=== PATIENT | male | born 1960 | race Caucasian/White ===

== ENCOUNTER 2024-09-03 15:26 | Inpatient (IN) | payer MEDICARE, OTHER, SELFPAY ==
[2024-09-03] VITALS (12 sets, daily range): BP systolic 100–112; BP diastolic 49–71; PULSE 2–80; BMI 33.5; BMI 32.1
--- NOTE | 2024-09-03 12:28 | ED.GENMED ---
History of Present Illness
General
Chief Complaint: Breathing Problem
Source: patient and physician (Dr. Salazar)
Time Seen by Provider: 09/03/24 12:16
History of Present Illness
History of Present Illness:
This is a 64-year-old male who presents with shortness of breath. He was sent by his college service officer. They report weight gain. Patient reports abdominal distention. He states he always feels a little short of breath but it is much worse right now.
No fevers. No chest pain. Does have a history of COPD. Also has a history of valvular disease.
Past History
Past History
ED Past Medical History: COPD, HTN, Hypercholesterolemia, Valvular disease and Other (Irritable bowel syndrome)
ED Past Surgical History: Cardiac (Mitral valve replacement)
Social History
Tobacco: Non-smoker
Living: with family
Phy Exam
Physical Exam
Physical Exam:
CONSTITUTIONAL Patient alert and oriented to person, place and time.ill-appearing. Vital signs reviewed. Moderate respiratory distress
HEAD atraumatic, normocephalic.
EYES eyelids normal to inspection, Pupils equally round and reactive to light, Extraocular muscles intact, Conjunctiva normal, Sclera normal.
NECK normal range of motion, Trachea midline, no jugular venous distention.
RESPIRATORY CHEST moderate respiratory distress noted, Chest expansion equal, diminished at bilateral bases
CARDIOVASCULAR irregular, Heart sounds normal.
BACK normal inspection, no obvious deformities
UPPER EXTREMITY range of motion normal, Motor strength normal, distal cyanosis, no edema.
LOWER EXTREMITY range of motion normal, Motor strength normal, distal cyanosis, bilateral edema.
NEURO Speech normal, No focal motor deficits, [place] coma scale 15, Memory normal, Cranial Nerves intact to screening exam.
SKIN skin warm, dry, and normal in color.
PSYCHIATRIC patient oriented to person place and time, Normal affect.
Scores
Heart Failure Risk
Heart Failure Risk Score: Yes
History of Stroke or TIA: No
History of intubation for respiratory distress: No
Heart rate on ED arrival >/= 110: No
SaO2 <90% on arrival on room air: No
HR >/=110 during 3min walk test (or too ill to perform test): Yes
ECG has acute ischemic changes: No
Urea >/=12mmol/L (BUN 33.6mg/dL): No
Serum CO2>/=35mmol/L: No
Troponin I or T elevated to [place] Level (0.4mg/dL): No
NT-proBNP >/=5,000ng/L (5,000pg/ml): No
HF Risk Score: 2
Admission Status: MEDIUM RISK 9.2% Consider observation or discharge to home with homecare & f/u visit to PCP/[employer], or SNF for treatment
Course
Orders/Labs/Results
Orders:
Orders
09/03/24 11:41
Electrocardiogram (*1) Urgent
Reason for Study: Other
Other Reason for Exam: Respiratory Distress
EKG- Treatment ONCE
09/03/24 12:25
CR Chest Portable - 1 View Stat
Comment:
Reason For Exam: sob
Reason Study Needs to be Portable: Patient Unstable
09/03/24 12:26
Bipap [RESP] Urgent
Patient to use own unit?: No
Inspiratory Pressure (cm H2O): 12
Expiratory Pressure (cm H2O): 5
09/03/24 12:35
Furosemide [Lasix] 40 mg IV NOW STA
09/03/24 12:37
Complete Blood Count/With Diff Urgent
Comprehensive Metabolic Panel Urgent
NT-proBNP Urgent
PT/INR [Prothrombin Time] Urgent
Troponin I Urgent
09/03/24 12:54
CT Chest W/o Iv Contrast Urgent
Comment:
Reason For Exam: hypoxia, abn CXR
09/03/24 15:02
Admit/Transfer Patient As Directed
Co-Sign Provider:
Level of Care: Inpatient admission
Assign to:: IMU- Intermediate Care
Physician / Group: Jennie Mcnair
Diagnosis: CHF Exarcebation
Reason for Hospitalization: as above
Expected length of stay greater than two midnights?: Yes
ELOS- Estimated Length of Stay in days: 3
I certify the patient meets the requirements for IP care: Yes
PRN Pain Medication Management As Directed
May give lesser potent ordered pain med per pt: Yes
preference::
Protocol:: Medication orders for pain may be administered in a
manner that supports deferring to patient preference
when the pt is:
- Requesting an ordered lesser potent pain medication.
Least to most potent pain medications are defined
as: acetaminophen < NSAID < tramadol < opioids
(morphine, oxycodone, hydromorphone).
- Requesting a lesser dose of the same medication IF
ORDERED.
- Requesting a less intrusive route of administration
if both routes are prescribed by the provider (PO <
IV).
09/03/24 15:04
Echo 2D MMode Color/Doppler Routine
Reason for Study: CHF, mech MVR
09/03/24 15:06
Code Status As Directed
Resuscitation Status: Full Code
09/03/24 15:15
IRAD CONSULT Routine
Consulting Provider: Adair Meek
Was physician already notified: Yes
Reason for Consult/Procedure: Right Thoracocentesis
Acknowledgement that appropriate orders are entered: Yes
Body Fluid Amylase Routine
Fluid Source: Pleural
Date Specimen was Collected: 09/06/24
Time Specimen was Collected: 14:00
Comment: right lateral chest tube placed in IRAD
Body Fluid Cell Count Routine
What is the Body Fluid: pleural fluid
Date Specimen was Collected: 09/06/24
Time Specimen was Collected: 14:00
Comment: right lateral chest tube placed in IRAD
Body Fluid Glucose Routine
Fluid Source: Pleural
Date Specimen was Collected: 09/06/24
Time Specimen was Collected: 14:00
Comment: right lateral chest tube placed in IRAD
Body Fluid LDH Routine
Fluid Source: Pleural
Date Specimen was Collected: 09/06/24
Time Specimen was Collected: 14:00
Comment: right lateral chest tube placed in IRAD
Body Fluid Protein Routine
Fluid Source: Pleural
Date Specimen was Collected: 09/06/24
Time Specimen was Collected: 14:00
Comment: right lateral chest tube placed in IRAD
Body Fluid Triglycerides Routine
Fluid Source: Pleural
Date Specimen was Collected: 09/09/24
Time Specimen was Collected: 01:30
Body Fluid pH Routine
Fluid Source: Pleural
Date Specimen was Collected: 09/06/24
Time Specimen was Collected: 14:00
Comment: right lateral chest tube placed in IRAD
Fluid Culture with Gram Stain Routine
LEE Source: Pleural Fluid
Specimen Description:
Date Specimen was Collected: 09/06/24
Time Specimen was Collected: 14:00
Comment: right lateral chest tube placed in IRAD
09/03/24 17:31
Acetaminophen [Tylenol] 1,000 mg PO Q6HPRN PRN
Albuterol [ProAIR HFA INHALER] 2 puff INH R Q4HPRN PRN
Bisacodyl [Dulcolax] 10 mg RECTAL [id number] PRN
Docusate W/Senna [Senokot-S] 1 tablet PO BIDPRN PRN
Furosemide [Lasix] 80 mg IV BID AT 0800,1600
Polyethylene Glycol Powder [Miralax] 17 grams PO DAILYPRN PRN
09/03/24 17:31
CARDIOLOGY CONSULT Routine
Consulting Provider: Jolly James
Was physician already notified: Yes
Reason for consult: CHF
Activity As Directed
Activity Level: Ambulate
Intake/ Output As Directed
Frequency: Per unit guidelines
Vital Signs As Directed
Frequency: Per unit guidelines
Weight As Directed
Frequency: Daily
Rx Incentive Spirometry [RESP] Routine
Frequency: q1h while awake
Ot Eval And Treat Routine
Pt Eval And Treat Routine
Activity Level: Ambulate
DX Deep Vein Thrombosis Video Routine
09/03/24 20:00
Albuterol Nebs [Ventolin Nebules] 2.5 mg INH R BID
Budesonide [Pulmicort] 0.5 mg INH R BID
Metoprolol Xl [Toprol Xl] 150 mg PO BID
09/03/24 22:00
Rosuvastatin Calcium [Crestor] 5 mg PO HS
Valacyclovir HCl [Valtrex] 1,000 mg PO HS
Verapamil Extended Release [Calan Extended Release] 240 mg PO HS
09/04/24 04:23
Complete Blood Count/With Diff IN AM
Comprehensive Metabolic Panel IN AM
09/04/24 08:00
Aspirin Low Dose EC [Aspir Low (Enteric Coated)] 81 mg PO DAILY
Pantoprazole [Protonix] 40 mg PO DAILY
Sertraline HCl [Zoloft] 100 mg PO DAILY
Verapamil Extended Release [Calan Extended Release] 120 mg PO DAILY
Abnormal Lab Results
09/03/24
12:37
RBC 4.34 L 10^6/uL
(4.70-6.10)
Hgb 12.6 L g/dL
(13.0-18.0)
MCHC 31.8 L g/dL
(33.0-37.0)
RDW 15.9 H %
(11.5-14.5)
Absolute Neuts (auto) 8.4 H 10^3/uL
(1.4-6.5)
Absolute Lymphs (auto) 0.7 L 10^3/uL
(1.2-3.4)
Absolute Monos (auto) 1.0 H 10^3/uL
(0.1-0.6)
Neutrophils % 80.9 H %
(42.2-75.2)
Lymphocytes % 6.5 L %
(20.5-51.1)
Monocytes % 10.0 H %
(1.7-9.3)
PT 44.3 H Sec
(11.4-14.6)
Chloride 87 L mmol/L
(98-107)
Carbon Dioxide 40 H mmol/L
(22-30)
Glucose 117 H mg/dl
(70-99)
Total Bilirubin 2.6 H mg/dl
(0.2-1.3)
Alkaline Phosphatase 243 H U/L
(38-126)
09/03/24 12:37
09/03/24 12:37
Vital Signs
Initial and Last Documented VS:
Initial Vital Signs
Temp Pulse Resp BP Pulse Ox
98 F 61 16 105/57 94
09/03/24 11:37 09/03/24 11:37 09/03/24 11:37 09/03/24 11:37 09/03/24 11:37
Last Documented Vital Signs
Temp Pulse Resp BP Pulse Ox
98.0 F 99 9 100/72 91
09/08/24 23:40 09/09/24 00:00 09/09/24 00:00 09/09/24 00:00 09/09/24 00:00
MDM/Problems Addressed
MDM/Problems Addressed:
Hypoxia, volume overload, whiteout of the right lower lobe, hypoxia
*Radiology
Radiology exam reviewed: preliminary read by ED provider (Right lower lobe whiteout) and radiology read reviewed
*Pulse Oximetry
Patient hypoxic: yes
*EKG
Interpreted by ED Provider?: Yes
Interpretation: abnormal
Rate: normal
Rhythm: other (? AF)
[place]: left axis deviation
QRS Pattern: right bundle branch block
*Critical Care Note
Total Time (30-74mins, 75-104mins- exclusive of procedures): 40 minutes
Data Reviewed
Source: patient and other (Dr. Salazar)
Prescriptions/Medications Considered But Not Given:
Considered antibiotics but afebrile, normal white count
Patient Management
Discussion with other providers: Hospitalist and Wholesale Parts Salesperson (Case discussed with cardiology)
Escalation/DeEscalation of care consider admission/obs:
64-year-old male with multiple medical problems as a history who presents with progressive dyspnea. He is profoundly short of breath sitting in bed. Clearly with orthopnea. Now BiPAP is sitting up in the chair does appear better. IV diuretics
given. Check CT to further evaluate the whiteout of the right lung that may be pleural fluid versus pneumonia. He has not had any trauma but is coagulopathy is noted.
ED Attending Note
-
Portions of this chart may have been created with voice recognition software.� Occasional wrong word or��sound alike� substitutions may have occurred due to the inherent limitations of voice recognition software.
Discharge Plan
Departure
Patient Disposition: Admit
Date of Disposition: 09/03/24
Time of Disposition: 13:27
Admit to: IMU
Presentation/result/management discussed w/ accepting MD/DO: Hospitalist
Discharge Problem:
Congestive heart failure, Hypoxia, Supratherapeutic INR
Interventions
Interventions:
*Risk Screen - Suicide Last Done: 09/03/24 18:35
*General Assessment Last Done: 09/03/24 11:37
*Neglect/Abuse Screening Last Done: 09/03/24 11:37
*ED COVID-19 Vaccine History Last Done: 09/03/24 12:38
*Nursing Disposition Last Done: 09/03/24 17:17
ED- Cardiac Assessment Last Done: 09/03/24 15:41
ED- Pulmonary Assessment Last Done: 09/03/24 15:41
Discharge Date and Time
Discharge Date/Time: 09/03/24 17:18
[2024-09-03] MEDS: LASIX 40 MG IV (12:47)
[2024-09-03 12:52] LABS: % Basophils 0.4 % (0-2); % Immature Granulocytes 0.2 % (0-0.5); % Lymphocytes 6.5 % (20.5-51.1); % Neutrophils 80.9 % (42.2-75.2); Absolute Eosinophils 0.2 10^3/uL (0-0.7); Absolute Lymphocytes 0.7 10^3/uL (1.2-3.4); Absolute Neutrophils 8.4 10^3/uL (1.4-6.5); Hematocrit 39.6 % (39.0-52.0); Hemoglobin 12.6 g/dL (13.0-18.0); Mean Corp Hgb Conc. 31.8 g/dL (33.0-37.0); Mean Corpuscular Volume 91.2 fL (80.0-94.0); Mean Platelet Volume 8.9 fL (7.4-10.4); Nucleated Red Blood Cells % 0 % (-); Platelet Count 332 10^3/uL (130-400); Red Blood Cell Count 4.34 10^6/uL (4.70-6.10); Red Cell Dist. Width 15.9 % (11.5-14.5); White Blood Cell Count 10.3 10^3/uL (4.8-10.8)
[2024-09-03 13:08] LABS: ALT (SGPT) 24 U/L (0-50); AST (SGOT) 37 U/L (17-59); Alkaline Phosphatase 243 U/L (38-126); Blood Urea Nitrogen 17 mg/dl (9-20); Chloride 87 mmol/L (98-107); Estimated Creatinine Clearance 111 ml/min; Glucose 117 mg/dl (70-99); INR 4.69; PT 44.3 Sec (11.4-14.6); Potassium 3.8 mmol/L (3.5-5.1); Sodium 138 mmol/L (135-145); Total Bilirubin 2.6 mg/dl (0.2-1.3); Total Protein 7.3 g/dl (6.3-8.2); eGFR > 60.00
[2024-09-03 13:19] LABS: Troponin I 0.014 ng/ml
[2024-09-03 13:20] LABS: Carbon Dioxide 40 mmol/L (22-30)
[2024-09-03 13:53] LABS: NT-proBNP 1170 pg/ml
--- NOTE | 2024-09-03 14:30 | W.PN.CARDCBS ---
Addendum entered and electronically signed by Jolly James DO 09/03/24 19:47:
I saw and examined the patient.
The Soda Drier Feeder's note was reviewed and I agree with the note.
Comment: Patient seen and examined in the ED after being sent from our office for acute hypoxic shortness of breath and symptoms of heart failure. Office notes reviewed.Patient is currently sitting out of bed to chair on BiPAP with slightly
improved shortness of breath. No chest pain or pressure.
Morbidly obese sitting out of bed to chair with acute respiratory distress on BiPAP
Irregularly irregular. Positive S1-S2. Distant heart sounds. Positive click of mechanical mitral valve
Bronchovesicular breath sounds severely decreased bilaterally particularly on the right side with left-sided crackles
Morbidly obese. Positive bowel sounds. Nontender
+++ edema
Plan:
Patient presented to the office and referred to ER for evaluation and admission for acute, severe hypoxic respiratory distress requiring BiPAP found to have right lung whiteout on chest x-ray and evidence of heart failure.
-Will repeat 2D echocardiogram
-CT of the chest pending
-Eventual IR drainage of right lung; awaiting to see if they will do it with current INR. Given history of mechanical mitral valve would not reverse with vitamin K
-Continue IV diuresis
-Pending response may need Lasix drip
-Mechanical mitral valve on Coumadin with current INR 4.69. Would hold Coumadin tonight and follow INR.
-INR 4.69. On chronic Coumadin given history of mechanical mitral valve, followed by [facility] Coumadin clinic. Would hold Coumadin tonight, follow INR
-History of PAF currently in atrial fibrillation.
Will follow with you
Original Note:
Today's Communication / Plan
-
IV diuresis
IRAD eval for R thora
wean off BIPAP
hold coumadin
echo
Impression / Plan
-
Please refer to office note dated 09/03/24
Primary Health Officer: Dr. Salazar
Assessment:
-Presentation with SOB, LE edema
-Acute hypoxic respiratory failure, requiring BIPAP in ER
-Acute on chronic HFrEF
-R pleural effusion
-PAF
-History of AVNRT
-Severe MR
-s/p MV repair via mini thoracotomy 10/2013 at [facility]
-Previously dehisced mitral valve ring status post [place] mechanical mitral valve replacement at [facility] in 2013 with redo sternotomy
-Paravalvular plug placed at [facility] 07/2016 due to symptomatic worsening paravalvular leak
-chronic coumadin therapy, managed by [facility]
-COPD, on 4L NC home O2
-HLD
-JENNIFER on CPAP
-PVCs
-anxiety
ECHO 04/15/23: EF 45 to 50%, mild concentric LVH, stage II diastolic dysfunction, status post mechanical mitral valve prosthesis with peak/mean gradients 19/9 mmHg, no MR, mild to moderate AR, mild TR, PAP 49 mmHg, dilated aorta measuring 4.1 cm
Plan:
-Patient was seen in the office today for evaluation of weight gain and shortness of breath. Reports being up about 15 to 20 pounds and states his clothes began to not fix. This unfortunately was not improved with taking increased dosing of Lasix
120mg BID (chronically on 80mg BID). He was referred to emergency room for admission and IV diuresis.
-Chest x-ray in emergency room with evidence of whiteout of right lung. Chest CT pending. Of note he does have chronic elevation of right hemidiaphragm
-proBNP 1170. Currently on BiPAP, wean as able. Of note he chronically uses CPAP at night and chronically on 4L during day
-If felt to have significant effusion on right, would consider iRad evaluation for thoracentesis
-INR 4.69. On chronic Coumadin given history of mechanical mitral valve, followed by [facility]. Would hold Coumadin tonight, follow INR
-Would place on IV Lasix 80 mg twice daily and assess response. May need to escalate dosing or consider addition of Zaroxolyn if does not respond
-Last echo with EF 45-50%. On Toprol and verapamil as an outpatient. Will repeat echocardiogram. May need to consider addition of ARIEL/ARB/ARNI/Aldactone/SGLT2. Creatinine stable\\
-EKG afib with bifascicular block
-d/w ER physician, hospitalist
Progress Note - Health Officer
Subjective
Date of Service: September 03, 2024
reports breathing improved on bipap. no CP
Objective
Labs:
09/03/24 12:37
09/03/24 12:37
Labs
Hgb 12.6 g/dL (13.0-18.0) L 09/03/24 12:37
Hct 39.6 % (39.0-52.0) 09/03/24 12:37
Plt Count 332 10^3/uL (130-400) 09/03/24 12:37
PT 44.3 Sec (11.4-14.6) H 09/03/24 12:37
INR 4.69 09/03/24 12:37
Sodium 138 mmol/L (135-145) 09/03/24 12:37
Potassium 3.8 mmol/L (3.5-5.1) 09/03/24 12:37
BUN 17 mg/dl (9-20) 09/03/24 12:37
Creatinine 0.8 mg/dL (0.7-1.3) 09/03/24 12:37
Glucose 117 mg/dl (70-99) H 09/03/24 12:37
Troponins
09/03/24
12:37
Troponin I 0.014
Vital Signs and I&O:
Vital Signs
Temp Pulse Resp BP Pulse Ox
98 F 66 18 112/59 99
09/03/24 11:37 09/03/24 14:00 09/03/24 14:00 09/03/24 12:47 09/03/24 14:00
Vital Signs
Temp Pulse Resp BP Pulse Ox
98 F 66 18 112/59 99
09/03/24 11:37 09/03/24 14:00 09/03/24 14:00 09/03/24 12:47 09/03/24 14:00
Physical Exam
Physical Exam
GEN: No distress, awake, alert, oriented x3. on BIPAP
HEENT: supple, anicteric, mmm, eomi
LUNGS: Crackles B/L bases, no wheezes
CV: Irreg, S1/S2, mechanical valve click
ABD: firm, BS+, NT/ND
EXT: No cyanosis, clubbing, 2+ edema of B/L LE
NEURO: Gross non-focal
SKIN: Warm, pink, dry. No rash
--- NOTE | 2024-09-03 15:18 | HPS.HSE ---
Addendum entered and electronically signed by Jennie Mcnair MD 09/03/24 18:32:
I personally performed a history and physical exam of the patient and discussed management with the resident. I reviewed the resident's note and agree with the documented findings and plan of care HPI/CC.
GENERAL: well developed, well nourished, male in resp distress
HEENT: NC/AT bipap in place
HEART: regular rate and rhythm with ectopy, +S1, +S2
LUNGS : decreased breath sounds with E to A changes RLL
ABDOM: soft, nontender, distended, + bowel sounds
EXT: no cyanosis, clubbing--3+ LE edema bilaterally
NEUROLOGIC: grossly intact
acute on chronic (wears 4-5 L O2 at baseline) hypoxemic respiratory failure--multiple etiologies possible: acute on chronic systolic CHF exacerbation (pro BNP 1170 with increased weight gain), acute COPD exacerbation both possibly affected by
chronically elevated right hemidiaphragm--possible pleural effusion, possible ascites pushing on diaphragm--ADMIT to IMU--on BiPAP, wean to OP O2 level--consult pulm--consult cards--repeat ECHO, cont IV diuresis (80mg IV BID)--consult IR for
possible thoracentesis (must hold as INR 4)--I/Os, daily weights--doubt PE as INR supratherapeutic, coubt pna as gives no symptoms c/w that
chronic hypoxemic respiratory failure due to oxygen dependent COPD with compensated metabolic alkalosis (HCO3 is 40)--consult pulm--cont Amrita simms--no wheezing--hold on systemic steroids--if needs diuresis, consider diamox if alkalosis worsens
bilateral LE edema with increased abdominal girth and weight gain--doubt clot with elevated INR but will check BL US LE to r/o DVT and will check limited US looking for ascites
Paroxysmal atrial fibrillation-- on chronic Coumadin therapy--INR supratherapeutic--hold coumadin and follow--cont metoprolol and verapamil as able with holding parameters
Severe MR--s/p MV repair via mini thoracotomy 10/2013 at [facility] with mechanical valve--hold coumadin--cont asa, statin, metoprolol
Anxiety--Continue sertraline
Obstructive sleep apnea on CPAP
DVT prophylaxis; VTE contraindication (Holding coumadin)
CODE STATUS-- full code
Original Note:
Family Physician
-
Family Physician: Sunday Remy
Chief Complaint
-
Shortness of breath
History of Present Illness
This is a 64-year-old male with history of HFmrEF, paroxysmal atrial fibrillation on chronic anticoagulation, COPD, baseline home oxygen 4 L, presents to ED from his [employer] mut[employer] ticket cashier office with worsening shortness of breath at rest and with
exertion. He presented to his pari mutuel ticket cashier office today for evaluation of weight gain. Patient notes he has gained approximately 15 to 20 pounds. In addition he admits abdominal bloating and increased lower extremity edema despite increasing his
Lasix dosage to 120 mg twice daily(chronically on 80mg BID) as instructed by his pari mut[employer] ticket cashier. He denies chest pain, palpitations, dizziness, lightheadedness, syncope. He has no fever, no chills. On presentation to the the ER, his blood pressure
105/57, afebrile, O2 sat 96% requiring 8 L on BiPAP. Troponin 0.014, proBNP 1170, warfarin 4.69.
Medical History
Past Medical History
Past Medical History: Reports Other (SVT, severe mitral regurgitation, mitral valve disorder, essential hypertension, PVCs, hyperlipidemia, mitral valve prolapse, paroxysmal atrial fibrillation on chronic anticoagulation, GERD, COPD, home oxygen 4 L
NC)
Past Surgical History: Reports Other (Mitral valve replacement 11/02/2014)
Social History
Tobacco: Non-smoker
Alcohol: None
Drug: None
Living: Alone
Family History
Family History: Cancer (Breast cancer, cervical cancer in mother), Hypertension (Father) and Other
Allergies / Home Medications
Allergies reflects when Allergies were last updated in [facility].
Home Medications with original date entered in [facility]
Allergy/Medication List:
Allergies
Allergy/AdvReac Type Severity Reaction Status Date / Time
No Known Allergies Allergy Verified 09/03/24 11:36
Home Medications
aspirin 81 mg tablet,delayed release 81 mg PO DAILY 10/10/14
metoprolol succinate 100 mg tablet,extended release 24 hr 150 mg PO BID 11/25/17
sertraline 50 mg tablet 100 mg PO DAILY 06/05/21
verapamil 120 mg tablet,extended release 120 mg PO DAILY 06/05/21
verapamil 120 mg tablet,extended release 240 mg PO HS 06/05/21
acetaminophen 500 mg tablet (Tylenol Extra Strength) 1,000 mg PO Q6HPRN PRN mild pain 09/03/24
albuterol sulfate 90 mcg/actuation aerosol inhaler 2 puff inhalation R Q4HPRN PRN sob 09/03/24
arformoterol 15 mcg/2 mL solution for nebulization 2 ml inhalation R BID 09/03/24
budesonide 0.5 mg/2 mL suspension for nebulization 0.5 mg inhalation R BID 09/03/24
furosemide 80 mg tablet 80 mg PO BID 09/03/24
omeprazole 20 mg capsule,delayed release 20 mg PO DAILY 09/03/24
rosuvastatin 5 mg tablet 5 mg PO HS 09/03/24
valacyclovir 1 gram tablet 1,000 mg PO HS 09/03/24
Review of Systems
-
History Source: Patient
A 12 point ROS was completed and negative except as noted: Yes
Constitutional: Reports Fatigue
Respiratory: Reports Trouble Breathing
Physical Exam
Vital Signs
Vital Signs
Temp Pulse Resp BP Pulse Ox
98 F 66 18 112/59 99
09/03/24 11:37 09/03/24 14:00 09/03/24 14:00 09/03/24 12:47 09/03/24 14:00
Physical Exam
General: Respiratory Distress (On BiPAP)
Respiratory: Crackles (moderate b/l)
Cardiac: S1/S2 and Irregular Rhythm
GI: Soft, Non Tender and Distended (Mild distention)
Musculoskeletal: Other (2+ edema bilateral lower extremity)
Neuro: Awake, Alert, Oriented and AO x 3
Psych: Intact Judgment/Insight
Laboratory Results
-
09/03/24 12:37
09/03/24 12:37
Laboratory Results
PT 44.3 Sec (11.4-14.6) H 09/03/24 12:37
INR 4.69 09/03/24 12:37
Total Bilirubin 2.6 mg/dl (0.2-1.3) H 09/03/24 12:37
AST 37 U/L (17-59) 09/03/24 12:37
ALT 24 U/L (0-50) 09/03/24 12:37
Alkaline Phosphatase 243 U/L (38-126) H 09/03/24 12:37
Troponin I 0.014 ng/ml 09/03/24 12:37
Impression/Plan
-
IMPRESSION/PLAN:
# Acute on chronic HFmrEF
#Acute on chronic hypoxemic respiratory insufficiency secondary to above
-Chest CT on presentation right hemidiaphragm is elevated. Small to moderate right pleural effusion.Mild upper abdominal ascites.
-IR consulted for thoracocentesis.
-Cardiology input appreciated
-proBNP 1170
-Currently on BiPaP. Wean as tolerated.
-4L Home O2 baseline
-Diuresis with 80mg Lasix.
-I's and O's, daily weights
-Echocardiogram 04/15/2023 LVEF 45 to 50%, stage II diastolic dysfunction
-Update echocardiogram
# Paroxysmal atrial fibrillation on chronic Coumadin therapy
-Continue rate control with metoprolol
-Hold Coumadin, INR 4.69
-Monitor INR
#Severe MR
-s/p MV repair via mini thoracotomy 10/2013 at [facility]
-Continue aspirin, beta-sabino, statin
# COPD
Continue home meds
# Anxiety
-Continue sertraline
# Obstructive sleep apnea on CPAP
DVT prophylaxis; VTE contraindication (Holding coumadin)
CODE STATUS; full code
[2024-09-03] MEDS: LASIX 80 MG IV (18:30)
[2024-09-03] MEDS: PULMICORT 0.5 MG INH (19:21)
[2024-09-03] MEDS: VENTOLIN NEBULES 2.5 MG INH (19:21)
[2024-09-03] MEDS: TOPROL XL 150 MG PO (20:16)
[2024-09-03] MEDS: CRESTOR 5 MG PO (21:09)
[2024-09-03] MEDS: CALAN EXTENDED RELEASE 240 MG PO (21:09)
[2024-09-03] MEDS: VALTREX 1000 MG PO (21:09)
[2024-09-04] VITALS (19 sets, daily range): BP systolic 85–110; BP diastolic 38–67; PULSE 2–88; O2SAT 93–94; BMI 32.1
--- NOTE | 2024-09-04 03:51 | PTCARENOTE ---
assumed care of patient, pt is AAOx3- able to make needs known. pt visibly SOB after eating dinner- low pulse ox on 7L MFNC. notified RT who put patient back on bipap. pt reported feeling much better after bipap was placed. oxygen 95%. pt urinating
without issues in urinal for strict I & O's. pt aware he is NPO at midnight for abdominal US. no complaints of pain, care ongoing.
[2024-09-04 04:44] LABS: % Basophils 0.5 % (0-2); % Eosinophils 2.4 % (0-6); % Immature Granulocytes 0.2 % (0-0.5); % Lymphocytes 7.9 % (20.5-51.1); % Monocytes 11.6 % (1.7-9.3); % Neutrophils 77.4 % (42.2-75.2); Absolute Eosinophils 0.2 10^3/uL (0-0.7); Absolute Lymphocytes 0.7 10^3/uL (1.2-3.4); Absolute Neutrophils 6.5 10^3/uL (1.4-6.5); Hematocrit 35.8 % (39.0-52.0); Hemoglobin 11.5 g/dL (13.0-18.0); Mean Corp Hgb Conc. 32.1 g/dL (33.0-37.0); Mean Corpuscular Volume 90.4 fL (80.0-94.0); Mean Platelet Volume 8.8 fL (7.4-10.4); Nucleated Red Blood Cells % 0 % (-); Platelet Count 272 10^3/uL (130-400); Red Blood Cell Count 3.96 10^6/uL (4.70-6.10); Red Cell Dist. Width 15.7 % (11.5-14.5); White Blood Cell Count 8.4 10^3/uL (4.8-10.8)
[2024-09-04 04:52] LABS: INR 3.94; PT 38.6 Sec (11.4-14.6)
[2024-09-04 05:08] LABS: ALT (SGPT) 22 U/L (0-50); AST (SGOT) 34 U/L (17-59); Albumin 3.6 g/dl (3.5-5.0); Alkaline Phosphatase 210 U/L (38-126); Blood Urea Nitrogen 17 mg/dl (9-20); Calcium 8.5 mg/dl (8.4-10.2); Carbon Dioxide 40 mmol/L (22-30); Chloride 89 mmol/L (98-107); Estimated Creatinine Clearance 108 ml/min; Glucose 115 mg/dl (70-99); Potassium 3.7 mmol/L (3.5-5.1); Sodium 139 mmol/L (135-145); Total Bilirubin 2.3 mg/dl (0.2-1.3); Total Protein 6.7 g/dl (6.3-8.2); eGFR > 60.00
[2024-09-04] MEDS: PULMICORT 0.5 MG INH ×2 (07:59→19:38)
[2024-09-04] MEDS: VENTOLIN NEBULES 2.5 MG INH (07:59)
--- NOTE | 2024-09-04 08:27 | W.PN.CARDCBS ---
Today's Communication / Plan
-
Continue IV Lasix 80 mg IV twice daily. Add metolazone 2.5 mg daily.
Decrease Toprol to 50 mg p.o. twice daily and hold verapamil
Hold Coumadin with INR 3.9. Would not give vitamin K with mechanical mitral valve
Continue BiPAP and O2 support for COPD
Impression / Plan
-
Please refer to office note dated 09/03/24
Primary Shipping Support Clerk: Dr. Salazar
Assessment:
-Presentation with SOB, LE edema
-Acute hypoxic respiratory failure, requiring BIPAP in ER
-Acute on chronic HFrEF
-R pleural effusion
-PAF
-History of AVNRT
-Severe MR
-s/p MV repair via mini thoracotomy 10/2013 at [facility]
-Previously dehisced mitral valve ring status post [employer] mechanical mitral valve replacement at [facility] in 2013 with redo sternotomy
-Paravalvular plug placed at [facility] 07/2016 due to symptomatic worsening paravalvular leak
-chronic coumadin therapy, managed by [facility]
-COPD, on 4L NC home O2
-HLD
-JENNIFER on CPAP
-PVCs
-anxiety
ECHO 04/15/23: EF 45 to 50%, mild concentric LVH, stage II diastolic dysfunction, status post mechanical mitral valve prosthesis with peak/mean gradients 19/9 mmHg, no MR, mild to moderate AR, mild TR, PAP 49 mmHg, dilated aorta measuring 4.1 cm.
Echo 09/03/24: LVEF 40%, moderate LVH, dilated RV with reduced RV function, mechanical mitral valve with mean gradient of 5 and no MR. PA pressure 60-65. Ascending aorta 4.3 cm
Plan:
-He remains on BiPAP and remains hypoxic. Will continue aggressive IV diuresis today. Will add 2.5 metolazone with p.m. Lasix dose. Continue 80 IV twice daily. Creatinine is normal.
-He has an elevated right hemidiaphragm and a large right pleural effusion. If possible would like thoracentesis to help remove volume.
INR still elevated at 3.94. Will continue to hold Coumadin. Goal INR with mechanical valve 2.5-3.5. Would not give vitamin K at this point.
-Echo was reviewed and discussed with patient. Mechanical mitral valve is stable. PA pressures are elevated. Will continue diuresis
-Lexiscan nuclear stress test from 2021 with fixed inferior defect and EF of 45%.
-He remains in A-fib with slow ventricular rates. Will decrease Toprol to 50 mg p.o. twice daily and hold a.m. verapamil.
-CT scan reviewed with groundglass opacities in the lungs, elevated right hemidiaphragm, and mild ascites.
-
Progress Note - Shipping Support Clerk
Subjective
Date of Service: September 04, 2024
On BiPAP and still short of breath. Slightly improved. Denies dizziness.
Objective
Labs:
09/04/24 04:23
09/04/24 04:23
Labs
Hgb 11.5 g/dL (13.0-18.0) L 09/04/24 04:23
Hct 35.8 % (39.0-52.0) L 09/04/24 04:23
Plt Count 272 10^3/uL (130-400) 09/04/24 04:23
PT 38.6 Sec (11.4-14.6) H 09/04/24 04:23
INR 3.94 09/04/24 04:23
Sodium 139 mmol/L (135-145) 09/04/24 04:23
Potassium 3.7 mmol/L (3.5-5.1) 09/04/24 04:23
BUN 17 mg/dl (9-20) 09/04/24 04:23
Creatinine 0.8 mg/dL (0.7-1.3) 09/04/24 04:23
Glucose 115 mg/dl (70-99) H 09/04/24 04:23
Troponins
09/03/24
12:37
Troponin I 0.014
Vital Signs and I&O:
Vital Signs
Temp Pulse Resp BP Pulse Ox
97.5 F 53 16 92/57 93
09/04/24 03:35 09/04/24 06:00 09/04/24 06:00 09/04/24 06:00 09/04/24 04:24
Vital Signs
Temp Pulse Resp BP Pulse Ox
97.5 F 53 16 92/57 93
09/04/24 03:35 09/04/24 06:00 09/04/24 06:00 09/04/24 06:00 09/04/24 04:24
Intake & Output
09/02/24 09/03/24 09/04/24 09/05/24
06:59 06:59 06:59 06:59
Output Total 825 / 825
Balance -825 / -825
Physical Exam
Physical Exam
GEN: No distress, awake, Ox3
HEENT: supple, anicteric, mmm, Bipap
LUNGS: Bilateral rhonchi with decreased breath sounds at the right base
CV: Irreg, S1/S2, 1/6 syst LSB, + click, S3+
ABD: soft, BS+, + distended
EXT: + edema
NEURO: Gross non-focal
SKIN: No rash
--- NOTE | 2024-09-04 08:50 | W.PN.HOSP.TC ---
Today's Communication/Plan
-
diuresis
IR for thoracentesis
check US B/L Le edema and abdomen for ascites
follow INR-holding coumadin
wean BiPAP as tolerated
apprec cards
await pulm
Assessment / Plan
Assessment / Plan
pt is a 64 year old male
acute on chronic (wears 4-5 L O2 at baseline) hypoxemic respiratory failure--multiple etiologies possible: acute on chronic systolic CHF exacerbation, acute COPD exacerbation (less likely) both possibly affected by chronically elevated right
hemidiaphragm--possible pleural effusion, possible ascites pushing on diaphragm-- cont on BiPAP, wean to OP O2 level--await pulm--apprec cards--repeat ECHO with severely dilated right atrium and dilated right ventricle EF 40%, cont IV diuresis (80mg
IV BID)--await IR for possible thoracentesis--I/Os, daily weights--doubt PE as INR supratherapeutic, doubt pna as gives no symptoms c/w that
chronic hypoxemic respiratory failure (presumed hypercapnia too) due to oxygen dependent COPD with compensated metabolic alkalosis (HCO3 is 40)--await pulm--cont nebsAmrita--no wheezing--hold on systemic steroids--if needs diuresis, consider diamox
if alkalosis worsens--pt likely has minimal reserve with COPD and elevated right hemidiaphragm
bilateral LE edema with increased abdominal girth and weight gain--doubt clot with elevated INR but will check BL US LE to r/o DVT and will check limited US looking for ascites
Paroxysmal atrial fibrillation-- on chronic Coumadin therapy--INR supratherapeutic--hold coumadin and follow, do not reverse--cont metoprolol and verapamil as able with holding parameters
Severe MR--s/p MV repair via mini thoracotomy 10/2013 at [facility] with mechanical valve--hold coumadin--cont asa, statin, metoprolol
Anxiety--Continue sertraline
Obstructive sleep apnea on CPAP
DVT prophylaxis; VTE contraindication (Holding coumadin)
CODE STATUS-- full code
Anticipated Discharge: > 48 hours
Subjective/Interval History
-
Date of Service: September 04, 2024
pt still on BiPAP--oxygen drops when off
Objective Data
-
Labs:
Laboratory Results
09/04/24
04:23
WBC 8.4
Hgb 11.5 L
Hct 35.8 L
Plt Count 272
PT 38.6 H
INR 3.94
Sodium 139
Potassium 3.7
Chloride 89 L
Carbon Dioxide 40 H
BUN 17
Creatinine 0.8
Glucose 115 H
Calcium 8.5
Total Bilirubin 2.3 H
AST 34
ALT 22
Alkaline Phosphatase 210 H
Vital Signs:
max temp for 24 hours
09/03/24
12:45 09/03/24
23:12 09/04/24
05:48
Temp 98.0 F
Actual Weight 106 kg 101.5 kg
Vital Signs
Temp Pulse Resp BP Pulse Ox
97.5 F 53 16 92/57 93
09/04/24 03:35 09/04/24 06:00 09/04/24 06:00 09/04/24 06:00 09/04/24 04:24
I&O
09/03/24 09/04/24 09/05/24
06:59 06:59 06:59
Output Total 825 / 825
Balance -825 / -825
Review of Systems
-
All other systems: Reviewed and negative
Respiratory: Reports Trouble Breathing
Musculoskeletal: Reports Edema
Physical Exam
-
General: Well Developed, Well Nourished and No Apparent Distress
HEENT: Normocephalic, Atraumatic and Other (BiPAP in place)
Respiratory: Decreased Breath Sounds (right lung field lower 1/3)
Cardiac: Regular Rhythm and S1/S2; Negative Murmur
GI: Soft, Nontender, Normal Bowel Sounds and Distended
Musculoskeletal: Negative No Edema (bilateral LE edema)
Neuro: Awake
Psych: Calm
[2024-09-04] MEDS: PROTONIX 40 MG PO (09:41)
[2024-09-04] MEDS: ASPIR LOW (ENTERIC COATED) 81 MG PO (09:42)
[2024-09-04] MEDS: ZOLOFT 100 MG PO (09:43)
[2024-09-04] MEDS: LASIX 80 MG IV ×2 (09:43→17:03)
[2024-09-04] MEDS: TOPROL XL PO ×2 (09:47→19:39)
[2024-09-04 11:49] LABS: COVID-19 Antigen Negative (Negative)
--- NOTE | 2024-09-04 14:37 | CON.PUL ---
Consultation
Consultation Request
Date/Time Consultation Requested: 09/04/2024
Date/Time Consultation Performed: 09/04/2024
Requesting Provider: Dr. Mcnair
Performing Provider: Dr. Bentley Hodge
Reason for Consultation: Hypoxemic respiratory failure acute on chronic
Medical History
-
History of Present Illness:
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
worsening shortness of breath with exertion. Weight is up about 15 to 20 pounds from his baseline.
Reports lower extremity swelling despite increasing to high doses of Lasix. Denies any cough, wheezing, phlegm production. Denies any fevers or chills. Denies any lightheadedness chest pain or palpitation. Patient had increased work of breathing
that required 8 L of oxygen and also BiPAP.
proBNP was elevated. INR was elevated.
Past Medical History
Past Medical History: Other (See assessment and plan)
Social History
Tobacco: Non-smoker
Alcohol: None
Drug: None
Living: Alone
Family History
Family History: Reviewed & Not Pertinent
Allergies / Home Medications
Allergies
Allergy/AdvReac Type Severity Reaction Status Date / Time
No Known Allergies Allergy Verified 09/03/24 11:36
Home Medications
�Medication �Instructions �Recorded �Confirmed �Last Taken �Type
aspirin 81 mg tablet,delayed 81 mg PO DAILY Blood Clot 10/10/14 09/03/24 09/02/24 History
release Prevention/Tx
metoprolol succinate 100 mg 150 mg PO BID Blood Pressure 11/25/17 09/03/24 09/02/24 History
tablet,extended release 24 hr
sertraline 50 mg tablet 100 mg PO DAILY depression/anxiety 06/05/21 09/03/24 09/02/24 History
verapamil 120 mg tablet,extended 120 mg PO DAILY Blood Pressure 06/05/21 09/03/24 09/02/24 History
release
verapamil 120 mg tablet,extended 240 mg PO HS Blood Pressure 06/05/21 09/03/24 09/02/24 History
release
acetaminophen 500 mg tablet 1,000 mg PO Q6HPRN PRN mild pain 09/03/24 09/03/24 09/02/24 History
(Tylenol Extra Strength)
albuterol sulfate 90 mcg/actuation 2 puff inhalation R Q4HPRN PRN sob 09/03/24 09/03/24 Unknown History
aerosol inhaler
arformoterol 15 mcg/2 mL solution 2 ml inhalation R BID 09/03/24 09/03/24 09/02/24 History
for nebulization Lung/Breathing Issues
budesonide 0.5 mg/2 mL suspension 0.5 mg inhalation R BID 09/03/24 09/03/24 09/02/24 History
for nebulization Lung/Breathing Issues
furosemide 80 mg tablet 80 mg PO BID Fluid 09/03/24 09/03/24 09/02/24 History
Retention/Swelling 120 mg
omeprazole 20 mg capsule,delayed 20 mg PO DAILY Gastrointestinal 09/03/24 09/03/24 09/02/24 History
release Issue
rosuvastatin 5 mg tablet 5 mg PO HS High Cholesterol 09/03/24 09/03/24 09/02/24 History
valacyclovir 1 gram tablet 1,000 mg PO HS Infection 09/03/24 09/03/24 09/02/24 History
warfarin 1 mg tablet 3.5 mg PO QPM Blood Clot 09/03/24 09/03/24 Unknown History
Prevention/Tx
Review of Systems
-
History Source: Patient
All other systems: Negative unless noted
Vitals / Labs / Diagnostic Testing
Vital Signs
Temp Pulse Resp BP Pulse Ox
97.7 F 70 26 103/61 94
09/04/24 11:00 09/04/24 12:00 09/04/24 12:00 09/04/24 12:00 09/04/24 12:28
Lab Data
09/04/24 04:23
09/04/24 04:23
Laboratory Results
09/03/24 09/04/24
17:31 04:23
PT 38.6 H
INR 3.94
pH Cancelled
pCO2 Cancelled
pO2 Cancelled
HCO3 Cancelled
O2 Delivery Level Cancelled
Diagnostic Testing:
Physical Exam
-
HEENT: Normocephalic
Cardiovascular: S1/S2
Respiratory: Non-Labored Respirations
GI: Soft and Non Distended
Neurology: Awake, Alert and No Motor Deficits
Skin: Warm
General: Comfortable
Assessment
-
64-year-old man with complicated cardiac history, history of mechanical valve prosthesis, on Coumadin, heart failure, COPD on oxygen therapy, admitted with shortness of breath, weight gain and worsening hypoxemia with increased work of breathing.
Not bronchospastic on exam. Abnormal CT chest with right hemidiaphragm elevation and pleural effusion. We were consulted for evaluation of this
.
Acute on chronic hypoxemic respiratory failure up to 8 L of nasal cannula required noninvasive mechanical ventilation for increased work of breathing.
Baseline 4 L nasal cannula
Acute on chronic heart failure with reduced ejection/increased weight: proBNP 1170
CT chest with bilateral groundglass opacities: Suggestive of pulmonary edema.
Echocardiogram 04/15/2023 LVEF 45 to 50%, stage II diastolic dysfunction
Echocardiogram 09/03/2024: Reviewed: Dilated left ventricle with moderately reduced left ventricular systolic function. But 40%. Moderate concentric LVH. Dilated right ventricular size with reduced RV function. Severely dilated right atrium.
Mechanical valve prosthesis no mitral regurgitation seen.
CT chest abnormal: Right hemidiaphragm elevation/small pleural effusion.
Conditions present prior admission:
Severe MR-history of mitral valve prolapse-status post valve repair 10/2013/previously dehisced mitral valve ring status post [facility] mechanical valve replacement [facility] in 2013, paravalvular plug placed at [facility]
07/2016 due to paravalvular leak.
History of AVNRT
Paroxysmal atrial fibrillation on anticoagulation-Coumadin
GERD
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
Obstructive sleep apnea on CPAP therapy
COPD on 4 L of oxygen-unknown PFTs. Does not follow-up locally. No PFT available
On aformoterol/budesonide
Essential hypertension
Hyperlipidemia
Assessment and plan:
Clinical picture consistent with heart failure-increased proBNP, groundglass opacities on CAT scan, weight gain.
Echocardiogram noted.
Continue IV corticosteroids
Cardiology correspondence reviewed.
-
Continue oxygen supplementation, wean down as able.
Okay to use noninvasive mechanical ventilation for increased work of breathing.
Based on chronic respiratory alkalosis, this patient likely has chronic hypercapnic respiratory failure.
Will obtain ABG for baseline
Does not follow-up locally but has a CPAP at night due to diagnosis of obstructive sleep apnea. Suspect also obesity hypoventilation syndrome.
-
Abnormal CT chest: Chronic right hemidiaphragm elevation since 2014 or longer.
Right pleural effusion still may be heart failure.
Unclear if there is enough fluid to drain. Continue diuresis for now.
Agree with thoracentesis if possible, ultrasound-guided, sent for cytology, cell count, protein.
-
Patient has nonspecific mediastinal lymphadenopathy, enlargement may be due to volume overload.
Will need repeat CT scan with IV contrast in 3 months.
Can follow-up with his crm architect. Patient follow-up with Dr. Echevarria from [facility].
-
No evidence for acute exacerbation.
Continue Pulmicort nebulized takes at home
Will replace Afromoterol with duoneb TID.
-
DVT prophylaxis-on anticoagulation.
-
Will follow

Data reviewed:
Lower extremity Dopplers 09/04/2024: No evidence for DVT
-
Abdominal ultrasound 09/04/2024: Small amount of MAT hepatic free fluid. No ascites.
-
CT chest 09/03/2024: Reviewed,
1. Small to moderate right pleural effusion.
2. Groundglass opacities in both lungs, greatest in the right upper lobe, suspicious for mild edema versus hypoventilatory changes.
3. Elevated right hemidiaphragm.
4. Cardiomegaly.
5. Mild mediastinal lymphadenopathy, nonspecific but probably more likely to be reactive.
6. Mild upper abdominal ascites.
[2024-09-04] MEDS: ZAROXOLYN 2.5 MG PO (16:25)
[2024-09-04] MEDS: DUONEB 3 ML INH (19:38)
[2024-09-04] MEDS: VALTREX 1000 MG PO (19:40)
[2024-09-04] MEDS: CALAN EXTENDED RELEASE PO (19:40)
[2024-09-04] MEDS: CRESTOR 5 MG PO (19:40)
--- NOTE | 2024-09-04 20:16 | PTCARENOTE ---
Received pt from emre ALVARADO. Pt is [id number], JR. Afib w/ BBB and PVCs on the monitor. On 8L midflow, bipap HS, lungs diminished. Pt uses the urinal. Pt is laying in bed with call bowden in reach.
[2024-09-05] VITALS (20 sets, daily range): BP systolic 90–117; BP diastolic 41–86; PULSE 2–88; O2SAT 98; BMI 30.7
[2024-09-05 04:56] LABS: O2 Saturation % 91.2 % (94-98); pH 7.45 (7.35-7.45)
[2024-09-05 05:00] LABS: HCO3 53.5 mmol/L (21-28); PCO2 77 mmHg (35-48); PO2 59 mmHg (83-108)
[2024-09-05 05:21] LABS: Hematocrit 34.4 % (39.0-52.0); Hemoglobin 11.3 g/dL (13.0-18.0); Mean Corp Hgb Conc. 32.8 g/dL (33.0-37.0); Mean Corpuscular Hgb 28.3 pg (27.0-31.0); Mean Corpuscular Volume 86.2 fL (80.0-94.0); Mean Platelet Volume 9.3 fL (7.4-10.4); Platelet Count 272 10^3/uL (130-400); Red Blood Cell Count 3.99 10^6/uL (4.70-6.10); Red Cell Dist. Width 15.5 % (11.5-14.5); White Blood Cell Count 7.3 10^3/uL (4.8-10.8)
[2024-09-05 05:42] LABS: ALT (SGPT) 23 U/L (0-50); AST (SGOT) 36 U/L (17-59); Alkaline Phosphatase 224 U/L (38-126); Blood Urea Nitrogen 17 mg/dl (9-20); Calcium 8.8 mg/dl (8.4-10.2); Chloride 83 mmol/L (98-107); Glucose 111 mg/dl (70-99); Potassium 3.5 mmol/L (3.5-5.1); Sodium 138 mmol/L (135-145); Total Bilirubin 2.3 mg/dl (0.2-1.3)
[2024-09-05 05:49] LABS: NT-proBNP 1490 pg/ml
[2024-09-05 05:51] LABS: Albumin 3.8 g/dl (3.5-5.0); Estimated Creatinine Clearance 106 ml/min; eGFR > 60.00
[2024-09-05 06:02] LABS: Carbon Dioxide 40 mmol/L (22-30)
[2024-09-05] MEDS: DUONEB 3 ML INH ×3 (07:49→20:32)
[2024-09-05] MEDS: PULMICORT 0.5 MG INH ×2 (07:49→20:32)
[2024-09-05] MEDS: ASPIR LOW (ENTERIC COATED) 81 MG PO (08:38)
[2024-09-05] MEDS: PROTONIX 40 MG PO (08:38)
[2024-09-05] MEDS: TOPROL XL 50 MG PO ×2 (08:39→19:40)
[2024-09-05] MEDS: ZOLOFT 100 MG PO (08:39)
[2024-09-05] MEDS: LASIX 80 MG IV ×2 (08:40→17:23)
--- NOTE | 2024-09-05 09:30 | W.PN.CARDCBS ---
Today's Communication / Plan
-
Continue IV diuresis
Holding warfarin
Holding warfarin in anticipation of possible right thoracentesis
INR ordered for 09/06
Rate controlled in atrial fibrillation
Could consider SHERYL guided cardioversion prior to discharge and long-term antiarrhythmic drug therapy or PVI for his atrial fibrillation
Impression / Plan
-
Please refer to office note dated 09/03/24
Primary Warp Knitting Machine Operator: Dr. Slaazar
Assessment:
-Presentation with SOB, LE edema
-Acute hypoxic respiratory failure, requiring BIPAP in ER
-Acute on chronic HFrEF
-R pleural effusion
-PAF
-History of AVNRT
-Severe MR
-s/p MV repair via mini thoracotomy 10/2013 at [facility]
-Previously dehisced mitral valve ring status post [facility] mechanical mitral valve replacement at [facility] in 2013 with redo sternotomy
-Paravalvular plug placed at [facility] 07/2016 due to symptomatic worsening paravalvular leak
-chronic coumadin therapy, managed by [facility]
-COPD, on 4L [place] home O2
-HLD
-JENNIFER on CPAP
-PVCs
-anxiety
ECHO 04/15/23: EF 45 to 50%, mild concentric LVH, stage II diastolic dysfunction, status post mechanical mitral valve prosthesis with peak/mean gradients 19/9 mmHg, no MR, mild to moderate AR, mild TR, PAP 49 mmHg, dilated aorta measuring 4.1 cm.
Echo 09/03/24: LVEF 40%, moderate LVH, dilated RV with reduced RV function, mechanical mitral valve with mean gradient of 5 and no MR. PA pressure 60-65. Ascending aorta 4.3 cm
Plan:
-Diuresed almost 4-1/2 L of fluid and feels markedly better. Continue 80 IV twice daily. Creatinine is normal.
-He has an elevated right hemidiaphragm and a large right pleural effusion. If possible would like thoracentesis to help remove volume.
INR still elevated at 3.94 from September 04. Will continue to hold Coumadin. Goal INR with mechanical valve 2.5-3.5. Would not give vitamin K at this point. I put him in for an INR on Friday morning September 06 to assess INR and feasibility of
right thoracentesis. We are not reversing his INR given his history of mechanical valve which is delineated above in the assessment.
-Echo was reviewed and discussed with patient. Mechanical mitral valve is stable. PA pressures are elevated. Will continue diuresis
-Lexiscan nuclear stress test from 2021 with fixed inferior defect and EF of 45%.
-He remains in A-fib with slow ventricular rates. Decreased Toprol to 50 mg p.o. twice daily and hold a.m. verapamil. His rates are relatively reasonably controlled and could consider SHERYL guided cardioversion prior to discharge but will defer to
Dr. Salazar will evaluate reevaluate him on Friday in the long-term could consider either antiarrhythmic drug therapy (which may be limited by bradycardia) or pulmonary vein isolation once he is stabilized from a CHF perspective.
-CT scan reviewed with groundglass opacities in the lungs, elevated right hemidiaphragm, and mild ascites.
-
Progress Note - Warp Knitting Machine Operator
Subjective
Date of Service: September 05, 2024
Feels much better
Objective
Labs:
09/05/24 04:54
09/05/24 04:54
Labs
Hgb 11.3 g/dL (13.0-18.0) L 09/05/24 04:54
Hct 34.4 % (39.0-52.0) L 09/05/24 04:54
Plt Count 272 10^3/uL (130-400) 09/05/24 04:54
PT 38.6 Sec (11.4-14.6) H 09/04/24 04:23
INR 3.94 09/04/24 04:23
Sodium 138 mmol/L (135-145) 09/05/24 04:54
Potassium 3.5 mmol/L (3.5-5.1) 09/05/24 04:54
BUN 17 mg/dl (9-20) 09/05/24 04:54
Creatinine 0.8 mg/dL (0.7-1.3) 09/05/24 04:54
Glucose 111 mg/dl (70-99) H 09/05/24 04:54
Troponins
09/03/24
12:37
Troponin I 0.014
Vital Signs and I&O:
Vital Signs
Temp Pulse Resp BP Pulse Ox
98.2 F 91 20 108/70 93
09/05/24 04:10 09/05/24 08:40 09/05/24 07:50 09/05/24 08:40 09/05/24 07:50
Vital Signs
Temp Pulse Resp BP Pulse Ox
98.2 F 91 20 108/70 93
09/05/24 04:10 09/05/24 08:40 09/05/24 07:50 09/05/24 08:40 09/05/24 07:50
Intake & Output
09/03/24 09/04/24 09/05/24 09/06/24
06:59 06:59 06:59 06:59
Intake Total 810 / 810
Output Total 825 / 825 5680 / 5680
Balance -825 / -825 -4870 / -4870
Physical Exam
Physical Exam
�
����Physical Exam
�
���������������������General:��no apparent distress, not acutely ill
�
���������������������������Neck:��supple. no meningeal signs. normal psoterior pharynx
������������������������
���������������������������Heart:�Cor irregularly irregular, no murmur. equal radial pulses.
�
��������������������������Lungs: ��no acute respiratory distress. clear bilaterally
�
����������������������Abdomen:�normal bowel sounds. not tender. no CVAT
�
��������������������������Neuro:��alert and oriented. no focal neurological deficits
�
������������������������������Skin: ��no rash
�
�����������������������Psychiatric:�well kept. interactive and cooperative
�
�����������������������Extremities:��no edema. no calf tenderness. negative homans. good distal pulses
�
�
�
��
�
--- NOTE | 2024-09-05 09:44 | W.PN.HOSP.TC ---
Today's Communication/Plan
-
cont diuresis
await IR for possible thoracentesis
Assessment / Plan
Assessment / Plan
pt is a 64 year old male
acute on chronic hypercapnic hypoxemic respiratory failure--multiple etiologies possible: acute on chronic systolic CHF exacerbation, acute COPD exacerbation (less likely) both possibly affected by chronically elevated right hemidiaphragm--possible
pleural effusion--off BiPAP during the day, consult back on at night--apprec pulm/cards--repeat ECHO with severely dilated right atrium and dilated right ventricle EF 40%, cont IV diuresis--await IR for possible thoracentesis--I/Os, daily weights
chronic hypercapnic hypoxemic respiratory failure-- due to oxygen dependent COPD with compensated metabolic alkalosis (HCO3 is 40) and resp alkalosis (pH 7.45, pCO2 77, pO2 59, HCO3 53.5--apprec pulm--cont nebs, MDIs--no wheezing--hold on systemic
steroids--if needs diuresis, consider diamox if alkalosis worsens--pt likely has minimal reserve with COPD and elevated right hemidiaphragm
bilateral LE edema with increased abdominal girth and weight gain- BL US LE neg for DVT and no ascites on US
Paroxysmal atrial fibrillation-- on chronic Coumadin therapy--INR supratherapeutic--hold coumadin and follow, do not reverse--cont metoprolol and verapamil as able with holding parameters
Severe MR--s/p MV repair via mini thoracotomy 10/2013 at [facility] with mechanical valve--hold coumadin--cont asa, statin, metoprolol
Anxiety--Continue sertraline
Obstructive sleep apnea on CPAP
DVT prophylaxis--VTE contraindication (Holding coumadin)--follow INR
CODE STATUS-- full code
Anticipated Discharge: > 48 hours
Subjective/Interval History
-
Date of Service: September 05, 2024
pt looks much improved--off BiPAP and on 8L
Objective Data
-
Labs:
Laboratory Results
09/05/24 09/05/24
04:47 04:54
WBC 7.3
Hgb 11.3 L
Hct 34.4 L
Plt Count 272
HCO3 53.5 H*
Sodium 138
Potassium 3.5
Chloride 83 L
Carbon Dioxide 40 H
BUN 17
Creatinine 0.8
Glucose 111 H
Calcium 8.8
Total Bilirubin 2.3 H
AST 36
ALT 23
Alkaline Phosphatase 224 H
Vital Signs:
max temp for 24 hours
09/05/24
00:36
Temp 98.5 F
Vital Signs
Temp Pulse Resp BP Pulse Ox
98.2 F 91 23 108/70 96
09/05/24 04:10 09/05/24 08:40 09/05/24 08:32 09/05/24 08:40 09/05/24 09:35
I&O
09/04/24 09/05/24 09/06/24
06:59 06:59 06:59
Intake Total 810 / 810 120 / 120
Output Total 825 / 825 5680 / 5680 400 / 400
Balance -825 / -825 -4870 / -4870 -280 / -280
Review of Systems
-
All other systems: Reviewed and negative
Physical Exam
-
General: Well Developed, Well Nourished and No Apparent Distress
HEENT: Normocephalic, Atraumatic and Oxygen
Respiratory: Decreased Breath Sounds (right lung base, crackles at left lung base)
Cardiac: Irregular Rhythm
GI: Soft, Nontender, Normal Bowel Sounds and Distended
Musculoskeletal: No Clubbing and No Cyanosis; Negative No Edema (4+ LE edema bilaterally)
Neuro: Awake and Alert
Psych: Calm
[2024-09-05 11:37] LABS: INR 2.64; PT 28.1 Sec (11.4-14.6)
--- NOTE | 2024-09-05 14:46 | W.PN.PUL3 ---
Today's Communication / Plan
-
Wait for right thoracentesis
Continue for now BiPAP nocturnally, while in the hospital. Can continue CPAP at home. Transition to BiPAP with his heel cover splitter
Diuretics
Follow renal function and electrolytes
Continue oxygen supplementation-close to his baseline.
Assessment
-
64-year-old man with complicated cardiac history, history of mechanical valve prosthesis, on Coumadin, heart failure, COPD on oxygen therapy, admitted with shortness of breath, weight gain and worsening hypoxemia with increased work of breathing.
Not bronchospastic on exam. Abnormal CT chest with right hemidiaphragm elevation and pleural effusion. We were consulted for evaluation of this
.
Acute on chronic hypoxemic respiratory failure up to 8 L of nasal cannula required noninvasive mechanical ventilation for increased work of breathing.
Baseline 4 L nasal cannula
Acute on chronic heart failure with reduced ejection/increased weight: proBNP 1170
CT chest with bilateral groundglass opacities: Suggestive of pulmonary edema.
Echocardiogram 04/15/2023 LVEF 45 to 50%, stage II diastolic dysfunction
Echocardiogram 09/03/2024: Reviewed: Dilated left ventricle with moderately reduced left ventricular systolic function. But 40%. Moderate concentric LVH. Dilated right ventricular size with reduced RV function. Severely dilated right atrium.
Mechanical valve prosthesis no mitral regurgitation seen.
CT chest abnormal: Right hemidiaphragm elevation/small pleural effusion.
Conditions present prior admission:
Severe MR-history of mitral valve prolapse-status post valve repair 10/2013/previously dehisced mitral valve ring status post [employer] mechanical valve replacement [facility] in 2013, paravalvular plug placed at [facility]
07/2016 due to paravalvular leak.
History of AVNRT
Paroxysmal atrial fibrillation on anticoagulation-Coumadin
GERD
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
Obstructive sleep apnea on CPAP therapy
COPD on 4 L of oxygen-unknown PFTs. Does not follow-up locally. No PFT available
On aformoterol/budesonide
Patient is a never smoker
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
Essential hypertension
Hyperlipidemia
Assessment and plan:
Clinical picture consistent with heart failure-increased proBNP, groundglass opacities on CAT scan, weight gain.
Atrial fibrillation is rate controlled
Echocardiogram noted.
Continue IV diuretics
Cardiology correspondence reviewed.
Coumadin on hold waiting for thoracentesis.
Follow INR
-
Continue oxygen supplementation, wean down as able.
Chronic hypercapnic respiratory failure,ABG 09/05/2024: 7.45/77/59 (compensated)
Compensatory metabolic alkalosis
Hypercapnia likely due to restriction from right hemidiaphragm paralysis. Diaphragm is paralyzed post multiple cardiac surgeries. At least since 2014
Does not follow-up locally but has a CPAP at night due to diagnosis of obstructive sleep apnea. Hypercapnia likely from diaphragm elevation and pulm restriction.
Can continue with BiPAP / while in the hospital. She feels better with it.
Recommend transition to BiPAP in the outpatient setting with Dr. Echevarria. Can continue to use CPAP at home in the meantime.
-
Abnormal CT chest: Chronic right hemidiaphragm elevation since 2014 or longer.
Right pleural effusion still may be heart failure.
Unclear if there is enough fluid to drain. Continue diuresis for now.
Agree with thoracentesis if possible, ultrasound-guided, sent for cytology, cell count, protein. Waiting for INR to drift down.
Repeat INR tomorrow
Coumadin on hold
-
Patient has nonspecific mediastinal lymphadenopathy, enlargement may be due to volume overload.
Will need repeat CT scan with IV contrast in 3 months.
Can follow-up with his heel cover splitter. Patient follow-up with Dr. Echevarria from [facility].
-
History of COPD: On chronic oxygen 4 to 5 L. Never smoker. Prior exposure to fumes at a worksite
No evidence for acute exacerbation.
Continue Pulmicort nebulized takes at home
Replaced Afromoterol with duoneb TID. While in the hospital
-
DVT prophylaxis-on anticoagulation.
-
Will follow

Data reviewed:
Lower extremity Dopplers 09/04/2024: No evidence for DVT
-
Abdominal ultrasound 09/04/2024: Small amount of MAT hepatic free fluid. No ascites.
-
CT chest 09/03/2024: Reviewed,
1. Small to moderate right pleural effusion.
2. Groundglass opacities in both lungs, greatest in the right upper lobe, suspicious for mild edema versus hypoventilatory changes.
3. Elevated right hemidiaphragm.
4. Cardiomegaly.
5. Mild mediastinal lymphadenopathy, nonspecific but probably more likely to be reactive.
6. Mild upper abdominal ascites.
Subjective Data
-
Date of Service:
Date of Service: September 05, 2024
Chief Complaint: Pulmonary Follow Up (Pleural effusion/hypoxemic respiratory failure)
Subjective:
Feeling better with diuresis
Awaiting for thoracentesis
Tolerating CPAP at night
Denies any cough or phlegm
Denies any
Review of Systems
Cardiopulmonary: Dyspnea, Dyspnea on Exertion and Cough (Chronic)
GI: Abdominal Pain (n) and Nausea (n)
Neuro: Headache (n)
Objective Data
Data Reviewed
Vital Signs / I&O / Oxygen:
Vital Signs
Temp Pulse Resp BP Pulse Ox
98.1 F 81 19 108/58 99
09/05/24 11:06 09/05/24 12:23 09/05/24 12:23 09/05/24 12:23 09/05/24 12:00
Intake and Output
09/04/24 09/05/24 09/06/24
06:59 06:59 06:59
Intake Total 810 / 810 240 / 240
Output Total 825 / 825 5680 / 5680 2250 / 2250
Balance -825 / -825 -4870 / -4870 -2009
SaO2 99
Nasal Cannula flow liters per 8
minute
Physical Exam
General: Comfortable
HEENT: Normocephalic
Cardiovascular: Irregular Rhythm
Respiratory: Other (Decreased breath sounds in the right)
GI: Soft and Non Distended
Neurology: Awake, Alert, Oriented and No Motor Deficits
Skin: Warm
Labs/Micro/Reports
Lab Data
09/05/24 04:54
09/05/24 04:54
Laboratory Results
09/05/24 09/05/24
04:47 11:08
PT 28.1 H
INR 2.64
pH 7.45
pCO2 77 H*
pO2 59 L*
HCO3 53.5 H*
O2 Delivery Level
[2024-09-05] MEDS: AFRIN NASAL SPRAY 2 SPRAYS NASAL (16:36)
[2024-09-05] MEDS: OCEAN, SALINE MIST 2 SPRAYS NASAL (16:37)
[2024-09-05] MEDS: ZAROXOLYN 2.5 MG PO (16:44)
--- NOTE | 2024-09-05 17:00 | PTCARENOTE ---
Patient is on 8 liters mid flow, pulse ox 93%. Nose bleed treated with Afrin and saline spray, resolved quickly. Humidified air to mid flow.
[2024-09-05] MEDS: CRESTOR 5 MG PO (19:40)
[2024-09-05] MEDS: CALAN EXTENDED RELEASE 240 MG PO (19:40)
[2024-09-05] MEDS: VALTREX 1000 MG PO (19:40)
--- NOTE | 2024-09-05 20:04 | PTCARENOTE ---
Received pt from emre RN. Pt OOB in the chair. Pt on 5L midflow O2 sat 94%, bipap HS. VSS. Call bowden in reach.
[2024-09-06] VITALS (37 sets, daily range): BP systolic 68–133; BP diastolic 44–113; PULSE 2–88; BMI 29.6
[2024-09-06 05:34] LABS: Hematocrit 33.8 % (39.0-52.0); Hemoglobin 11.3 g/dL (13.0-18.0); Mean Corp Hgb Conc. 33.4 g/dL (33.0-37.0); Mean Corpuscular Hgb 28.3 pg (27.0-31.0); Mean Corpuscular Volume 84.7 fL (80.0-94.0); Mean Platelet Volume 8.8 fL (7.4-10.4); Platelet Count 272 10^3/uL (130-400); Red Blood Cell Count 3.99 10^6/uL (4.70-6.10); Red Cell Dist. Width 15.3 % (11.5-14.5); White Blood Cell Count 8.3 10^3/uL (4.8-10.8)
[2024-09-06 05:43] LABS: INR 2.04; PT 22.9 Sec (11.4-14.6)
[2024-09-06 05:54] LABS: Blood Urea Nitrogen 21 mg/dl (9-20); Calcium 8.9 mg/dl (8.4-10.2); Chloride 75 mmol/L (98-107); Estimated Creatinine Clearance 94 ml/min; Glucose 137 mg/dl (70-99); Magnesium 1.8 mg/dl (1.6-2.3); Potassium 3.3 mmol/L (3.5-5.1); Sodium 134 mmol/L (135-145); eGFR > 60.00
[2024-09-06 06:14] LABS: Carbon Dioxide 42 mmol/L (22-30)
--- NOTE | 2024-09-06 07:41 | W.PN.PUL3 ---
Today's Communication / Plan
-
Right-sided chest tube with fluid studies sent for cell count with differential, cultures + cytopathology
Start antibiotics given concern for right-sided empyema
Okay to resume Coumadin tonight given INR is approaching 2.0; trend INR daily with goal 2-3
Continue nocturnal BiPAP and resume CPAP upon discharge; he should discuss transitioning to BiPAP with his private licensed plumber
Diuretics with holding parameters
Follow renal function and electrolytes
Continue oxygen supplementation-close to his baseline -check ambulatory pulse oximetry prior to discharge
We will continue to follow
Assessment
-
64-year-old man with complicated cardiac history, history of mechanical valve prosthesis, on Coumadin, heart failure, COPD on oxygen therapy, admitted with shortness of breath, weight gain and worsening hypoxemia with increased work of breathing.
Not bronchospastic on exam. Abnormal CT chest with right hemidiaphragm elevation and pleural effusion. We were consulted for evaluation of this
.
Impression:
Acute on chronic hypoxemic respiratory failure up to 8 L of nasal cannula required noninvasive mechanical ventilation for increased work of breathing.
Baseline 4 L nasal cannula
Multiloculated right pleural effusion suspected to be parapneumonic (suspect empyema)
Acute on chronic heart failure with reduced ejection/increased weight: proBNP 1170
CT chest with bilateral groundglass opacities: Suggestive of pulmonary edema with right sided small-moderate sized pleural effusion
Echocardiogram 04/15/2023 LVEF 45 to 50%, stage II diastolic dysfunction
Echocardiogram 09/03/2024: Reviewed: Dilated left ventricle with moderately reduced left ventricular systolic function. But 40%. Moderate concentric LVH. Dilated right ventricular size with reduced RV function. Severely dilated right atrium.
Mechanical valve prosthesis no mitral regurgitation seen.
CT chest abnormal: Right hemidiaphragm elevation/right sided pleural effusion.
Conditions present prior admission:
Severe MR-history of mitral valve prolapse-status post valve repair 10/2013/previously dehisced mitral valve ring status post [facility] mechanical valve replacement [facility] in 2013, paravalvular plug placed at [facility]
07/2016 due to paravalvular leak.
History of AVNRT
Paroxysmal atrial fibrillation on anticoagulation-Coumadin
GERD
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
Obstructive sleep apnea on CPAP therapy
COPD on 4 L of oxygen-unknown PFTs. Does not follow-up locally. No PFT available
On aformoterol/budesonide
Patient is a never smoker
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
Essential hypertension
Hyperlipidemia
Assessment and plan:
Clinical picture consistent with heart failure-increased proBNP, groundglass opacities on CAT scan, weight gain.
Atrial fibrillation is rate controlled
Echocardiogram noted.
Continue IV diuretics
Cardiology correspondence reviewed.
Coumadin on hold waiting for thoracentesis.
Follow INR
-
Continue oxygen supplementation, wean down as able.
Chronic hypercapnic respiratory failure,ABG 09/05/2024: 7.45/77/59 (compensated)
Compensatory metabolic alkalosis
Hypercapnia likely due to restriction from right hemidiaphragm paralysis. Diaphragm is paralyzed s/p multiple cardiac surgeries. At least since 2014
Does not follow-up locally but has a CPAP at night due to diagnosis of obstructive sleep apnea. Hypercapnia likely from diaphragm elevation and pulm restriction.
Can continue with BiPAP 12/5 while in the hospital. He feels better with it.
-
Abnormal CT chest: Chronic right hemidiaphragm elevation since 2014 or longer.
Right pleural effusion is multiloculated and suspected to be parapneumonic (may be empyema)
- Given concern for infectious process, he will need chest tube. Start ABx with rocephin/zithromax, and send fluid studies including cell count with diff, cultures and cytopathology from right sided chest tube that is pending for today via IR
He is now hypotensive - reduce diuretics to 40mg IV BID, holding for SBP<100mmHg
Agree with thoracentesis if possible, ultrasound-guided, sent for cytology, cell count, protein. Waiting for INR to drift down.
Coumadin on hold
-
Patient has nonspecific mediastinal lymphadenopathy, enlargement may be due to volume overload.
Will need repeat CT scan with IV contrast in 3 months.
Can follow-up with his licensed plumber. Patient follow-up with Dr. Echevarria from [facility].
-
History of COPD: On chronic oxygen 4 to 5 L. Never smoker. Prior exposure to fumes at a worksite
No evidence for acute exacerbation.
Continue Pulmicort nebulized takes at home
Replaced Afromoterol with duoneb TID; continue budesonide; resume home nebulized inhalers upon discharge
-
DVT prophylaxis-on coumadin; hold while chest tube is pending, ok to resume tonight given his INR is 2.04 today
-
Will follow

Data reviewed:
Chest US 09/06/2024: Multiloculated right pleural effusion.
Lower extremity Dopplers 09/04/2024: No evidence for DVT
-
Abdominal ultrasound 09/04/2024: Small amount of MAT hepatic free fluid. No ascites.
-
CT chest 09/03/2024: Reviewed,
1. Small to moderate right pleural effusion.
2. Groundglass opacities in both lungs, greatest in the right upper lobe, suspicious for mild edema versus hypoventilatory changes.
3. Elevated right hemidiaphragm.
4. Cardiomegaly.
5. Mild mediastinal lymphadenopathy, nonspecific but probably more likely to be reactive.
6. Mild upper abdominal ascites.
Total time spent today was 36 minutes for this encounter. Time includes reviewing laboratory test/imaging results, reviewing pertinent medical records, obtaining and reviewing medical history, performing an appropriate exam, ordering medications,
tests and procedures. Time also includes documentation of this encounter, coordinating patient care and communicating with other healthcare professionals. Total time does not include separately billed tests performed on this date of service.
Subjective Data
-
Date of Service:
Date of Service: September 06, 2024
Chief Complaint: Pulmonary Follow Up (Pleural effusion/hypoxemic respiratory failure)
Subjective:
Seen and evaluated this morning. He is sitting in a chair no acute distress. Heart rate 59, saturating 95% on 9 L/min via mid flow nasal cannula, BP 101/61. Afebrile overnight. He says he feels better with improved shortness of breath. Still
has a mild cough with white/off-white colored phlegm. He says he has a headache this morning. Wore BiPAP overnight on 10/28 bled with 7 L/min. Hypotensive overnight with SBP in the 80s. He denies chest pain, abdominal pain, nausea, fevers/chills.
Review of Systems
General: Other (Negative unless mentioned above)
Objective Data
Data Reviewed
Vital Signs / I&O / Oxygen:
Vital Signs
Temp Pulse Resp BP Pulse Ox
97.9 F 64 13 89/61 95
09/06/24 07:34 09/06/24 06:11 09/06/24 06:11 09/06/24 06:11 09/06/24 06:11
Intake and Output
09/05/24 09/06/24 09/07/24
06:59 06:59 06:59
Intake Total 810 / 810 850 / 850
Output Total 5680 / 5680 4950 / 4950
Balance -4870 / -4870 -4100 / -4100
SaO2 95
Nasal Cannula flow liters per 8
minute
Physical Exam
General: Respiratory Distress (negative), Comfortable, Chills (negative), Sweats (negative) and Good Appetite
HEENT: Normocephalic and Anicteric
Cardiovascular: Irregular Rhythm and Peripheral Edema (+2 pitting lower extremity edema bilaterally)
Respiratory: Wheeze (negative), Crackles (right base), Rhonchi (negative), Non-Labored Respirations and Other (Decreased breath sounds in the right)
GI: Soft, Non Distended, Non Tender and Normal Bowel Sounds
Neurology: AO x 3 and No Motor Deficits
Skin: Warm, Dry, Cyanosis (negative) and Jaundice (negative)
Labs/Micro/Reports
Lab Data
09/06/24 05:14
09/06/24 05:14
Laboratory Results
09/05/24 09/06/24
11:08 05:14
PT 28.1 H 22.9 H
INR 2.64 2.04
--- NOTE | 2024-09-06 07:54 | W.PN.HOSP.TC ---
Today's Communication/Plan
-
see A/P
Assessment / Plan
Assessment / Plan
A/P:
# acute on chronic hypercapnic hypoxemic respiratory failure, multiple etiologies including acute on chronic systolic CHF exacerbation and acute COPD exacerbation (less likely), both possibly affected by chronically elevated right hemidiaphragm,
possible pleural effusion
off BiPAP during the day, back on at night
Cont O2 support at 8L NC and wean as tolerated
repeat ECHO with severely dilated right atrium and dilated right ventricle EF 40%,
cont IV Lasix 80 BID with metolazone 2.5 mg daily with hold parameter, follow I/Os, daily weights
R sided chest tube placed due to loculated effusion
Follow thora labs, cultures + cytopathology
Empiric Antibiotics Ceftriaxone/azithromycin started given concern for right-sided empyema
Continue nocturnal BiPAP and resume CPAP upon discharge; he should discuss transitioning to BiPAP with his private income tax analyst
Pulm on board
Card on board
# chronic hypercapnic hypoxemic respiratory failure
# oxygen dependent COPD with compensated metabolic alkalosis
cont nebs, MDIs
no wheezing, hold on systemic steroids
consider diamox if alkalosis worsens, pt likely has minimal reserve with COPD and elevated right hemidiaphragm
apprec pulm
# bilateral LE edema with increased abdominal girth and weight gain
BL US LE neg for DVT and no ascites on US
# Paroxysmal atrial fibrillation on chronic Coumadin therapy
INR was supratherapeutic, resolved
resumed ROLL FILLER Coumadin, follow daily INR, Goal INR 2.5-3.5.
cont metoprolol and verapamil, both with holding parameters
# Severe MR s/p MV repair via mini thoracotomy 10/2013 at [facility] with mechanical valve
resumed Coumadin
cont asa, statin, metoprolol
# Anxiety
Continue sertraline
# Obstructive sleep apnea on CPAP
DVT prophylaxis, resumed ROLL FILLER Coumadin
CODE STATUS-- full code
DW RN
total time spent 51 min
Anticipated Discharge: > 48 hours
Subjective/Interval History
-
Date of Service: September 06, 2024
Objective Data
-
Labs:
Laboratory Results
09/06/24
05:14
WBC 8.3
Hgb 11.3 L
Hct 33.8 L
Plt Count 272
PT 22.9 H
INR 2.04
Sodium 134 L
Potassium 3.3 L
Chloride 75 L
Carbon Dioxide 42 H
BUN 21 H
Creatinine 0.8
Glucose 137 H
Calcium 8.9
Vital Signs:
Vital Signs
Temp Pulse Resp BP Pulse Ox
36.6 C 64 13 89/61 95
09/06/24 07:34 09/06/24 06:11 09/06/24 06:11 09/06/24 06:11 09/06/24 06:11
I&O
09/05/24 09/06/24 09/07/24
06:59 06:59 06:59
Intake Total 810 / 810 850 / 850
Output Total 5680 / 5680 4950 / 4950
Balance -4870 / -4870 -4100 / -4100
Review of Systems
-
All other systems: Reviewed and negative
Physical Exam
-
General: Well Developed, Well Nourished, Respiratory Distress and Conversant
HEENT: Normocephalic, Atraumatic and Oxygen (8L NC)
Respiratory: Non Labored Respirations and Chest Tubes (R side ); Negative Accessory Resp Muscle Use
Cardiac: S1/S2 and Irregular Rhythm
GI: Soft, Nontender and Normal Bowel Sounds
Musculoskeletal: No Clubbing, No Cyanosis, Edema, Right Lower Extrem and Edema, Left Lower Extrem
Neuro: Awake and Alert
Psych: Calm and Intact Judgement/Insight
Data Reviewed
-
Diagnostic Radiology: Report Reviewed by me
Labs: Labs Reviewed by me
--- NOTE | 2024-09-06 08:09 | PTCARENOTE ---
Patient requiring 8 liters mid flow after coming off bipap this morning, pulse ox 93%. Transported to IR for thoracentesis. Low Blood pressures discussed with Dr. Newsome, medications to be adjusted.
[2024-09-06] MEDS: AFRIN NASAL SPRAY 2 SPRAYS NASAL ×2 (08:57→19:39)
[2024-09-06] MEDS: KCL 40 MEQ PO (08:57)
[2024-09-06] MEDS: PROTONIX 40 MG PO (08:57)
[2024-09-06] MEDS: ASPIR LOW (ENTERIC COATED) 81 MG PO (08:57)
[2024-09-06] MEDS: ZOLOFT 100 MG PO (08:57)
[2024-09-06] MEDS: OCEAN, SALINE MIST 2 SPRAYS NASAL (08:58)
[2024-09-06] MEDS: LASIX IV (09:08)
[2024-09-06] MEDS: TOPROL XL PO (09:08)
--- NOTE | 2024-09-06 10:12 | W.PN.CARDCBS ---
Today's Communication / Plan
-
Continue with IV diuresis. Continue Lasix and Zaroxolyn.
Ventricular rates are adequate. Okay to hold Toprol and verapamil this morning.
Resume Coumadin after thoracentesis. Goal INR 2.5-3.5.
Would recommend a rate control strategy for now.
Check into cost of Farxiga.
Replete potassium
Impression / Plan
-
Please refer to office note dated 09/03/24
Primary Account Manager Employee Benefits: Dr. Salazar
Assessment:
-Presentation with SOB, LE edema
-Acute hypoxic respiratory failure, requiring BIPAP in ER
-Acute on chronic HFrEF
-R pleural effusion
-PAF
-History of AVNRT
-Severe MR
-s/p MV repair via mini thoracotomy 10/2013 at [facility]
-Previously dehisced mitral valve ring status post [employer] mechanical mitral valve replacement at [facility] in 2013 with redo sternotomy
-Paravalvular plug placed at [facility] 07/2016 due to symptomatic worsening paravalvular leak
-chronic coumadin therapy, managed by DCA
-COPD, on 4L NC home O2
-HLD
-JENNIFER on CPAP
-PVCs
-anxiety
ECHO 04/15/23: EF 45 to 50%, mild concentric LVH, stage II diastolic dysfunction, status post mechanical mitral valve prosthesis with peak/mean gradients 19/9 mmHg, no MR, mild to moderate AR, mild TR, PAP 49 mmHg, dilated aorta measuring 4.1 cm.
Echo 09/03/24: LVEF 40%, moderate LVH, dilated RV with reduced RV function, mechanical mitral valve with mean gradient of 5 and no MR. PA pressure 60-65. Ascending aorta 4.3 cm
Plan:
-He has lost about 25 pounds and continues to improve. Will continue with IV diuresis as creatinine remains stable. Evaluate for thoracentesis today.
-Resume Coumadin today as INR down to 2.05.
-Would pursue a rate control strategy with A-fib for now until plan for pleural effusion elevated hemidiaphragm in place.
-His blood pressure remains borderline. Hold a.m. Toprol and verapamil for today. Will try to continue with diuresis.
-Echo was reviewed and discussed with patient. Mechanical mitral valve is stable. PA pressures are elevated. Will continue diuresis
-Lexiscan nuclear stress test from 2021 with fixed inferior defect and EF of 45%.
-CT scan reviewed with groundglass opacities in the lungs, elevated right hemidiaphragm, and mild ascites.
-
Progress Note - Account Manager Employee Benefits
Subjective
Date of Service: September 06, 2024
Has diuresed well. Weight is down 25 pounds.
Objective
Labs:
09/06/24 05:14
09/06/24 05:14
Labs
Hgb 11.3 g/dL (13.0-18.0) L 09/06/24 05:14
Hct 33.8 % (39.0-52.0) L 09/06/24 05:14
Plt Count 272 10^3/uL (130-400) 09/06/24 05:14
PT 22.9 Sec (11.4-14.6) H 09/06/24 05:14
INR 2.04 09/06/24 05:14
Sodium 134 mmol/L (135-145) L 09/06/24 05:14
Potassium 3.3 mmol/L (3.5-5.1) L 09/06/24 05:14
BUN 21 mg/dl (9-20) H 09/06/24 05:14
Creatinine 0.8 mg/dL (0.7-1.3) 09/06/24 05:14
Glucose 137 mg/dl (70-99) H 09/06/24 05:14
Troponins
09/03/24
12:37
Troponin I 0.014
Vital Signs and I&O:
Vital Signs
Temp Pulse Resp BP Pulse Ox
97.8 F 65 19 88/52 96
09/06/24 08:08 09/06/24 08:56 09/06/24 08:56 09/06/24 09:08 09/06/24 08:56
Vital Signs
Temp Pulse Resp BP Pulse Ox
97.8 F 65 19 88/52 96
09/06/24 08:08 09/06/24 08:56 09/06/24 08:56 09/06/24 09:08 09/06/24 08:56
Intake & Output
09/04/24 09/05/24 09/06/24 09/07/24
06:59 06:59 06:59 06:59
Intake Total 810 / 810 850 / 850
Output Total 825 / 825 5680 / 5680 4950 / 4950
Balance -825 / -825 -4870 / -4870 -4100 / -4100
Physical Exam
Physical Exam
GEN: No distress, awake, Ox3
HEENT: supple, anicteric, mmm
LUNGS: bilat rhonchi
CV: Irreg, S1/S2, 1/6 syst LSB, no gallop
ABD: soft, BS+, NT/+ distended
EXT: ++ edema
NEURO: Gross non-focal
SKIN: No rash
[2024-09-06] MEDS: DUONEB 3 ML INH ×2 (11:02→19:49)
[2024-09-06] MEDS: PULMICORT 0.5 MG INH ×2 (11:02→19:49)
[2024-09-06] MEDS: ZITHROMAX INFUSION 250 IV (11:38)
[2024-09-06] MEDS: STERILE WATER FOR INJECTION 20 ML IV (11:39)
[2024-09-06] MEDS: ROCEPHIN 2000 MG IV (11:39)
--- NOTE | 2024-09-06 14:10 | W.PN.UPDATE ---
Addendum entered and electronically signed by Eliot Bhagat MD 09/06/24 16:20:
tpa 8 mg and dornase instilled into chest tube after placement, and chest tube was temporarily clamped. OK to place tube back to suction around 5 pm.
Original Note:
Update Note
Progress Note Update
Right sided chest tube placed. The amount of fluid appeared to be quite a bit less than on recent CT dated 09/03/24, and we only drained about 100 cc. There may be communication between right thorax and abdominal cavity, and fluid may be able to
move back and forth.
[2024-09-06] MEDS: DUONEB INH (14:12)
--- NOTE | 2024-09-06 14:49 | PTCARENOTE ---
Alteplase and dornase instilled in right chest tube buy Mily Veliz BS RT as ordered by Dr. Rico. Clamped at 1440, to dwell X2 hours. To be unclamped at 1640
[2024-09-06 15:05] LABS: Body Fluid pH 7.54
[2024-09-06 15:15] LABS: Body Fluid Albumin 2.9 g/dl; Body Fluid Triglycerides 49 mg/dl
--- NOTE | 2024-09-06 15:17 | PTCARENOTE ---
Pateint arrived back from IR s/p right sided chest tube placement. Blood pressure 88/46. Sanguineous drainage in chest tube. Dr. Newsome notified. Patient resting in bed at this time. Will recheck blood pressure in 15 minutes.
[2024-09-06 16:06] LABS: Body Fluid Amylase 38 U/L; Body Fluid Glucose 122 mg/dl; Body Fluid LDH 181 U/L; Body Fluid Protein 5.1 g/dl
[2024-09-06 16:29] LABS: Body Fluid Mononuclear 82.7 %; Body Fluid Polymorphonuclear 17.3 %; Body Fluid WBC 52 /CUMM
[2024-09-06 16:38] LABS: Body Fluid Second Tech RP
[2024-09-06] MEDS: ZAROXOLYN 2.5 MG PO (17:01)
[2024-09-06] MEDS: COUMADIN 3.5 MG PO (17:07)
[2024-09-06] MEDS: TYLENOL 1000 MG PO (17:07)
[2024-09-06] MEDS: LASIX 40 MG IV (18:02)
[2024-09-06] MEDS: MORPHINE SULFATE 2 MG IV (19:40)
[2024-09-06] MEDS: CALAN EXTENDED RELEASE 240 MG PO (19:40)
[2024-09-06] MEDS: TOPROL XL 50 MG PO (19:40)
[2024-09-06] MEDS: CRESTOR 5 MG PO (19:40)
[2024-09-06] MEDS: VALTREX 1000 MG PO (19:40)
--- NOTE | 2024-09-06 20:29 | PTCARENOTE ---
Received pt from emre RN. Pt is AAOx3. Afib w/ BBB and PVCs. On 5L midflow O2 sat 95%, bipap HS, lungs diminished. Right chest tube in place to suction. Pt c/o 07/03 pain at the chest tube site, PRN Morphine given (see MAR). Pt OOB in the chair
with call bowden in reach.
[2024-09-07] VITALS (16 sets, daily range): BP systolic 86–118; BP diastolic 48–83; PULSE 2–85; O2SAT 98; BMI 29.3
[2024-09-07] MEDS: MORPHINE SULFATE 2 MG IV ×3 (02:08→20:48)
[2024-09-07 06:00] LABS: Hematocrit 36.6 % (39.0-52.0); Mean Corp Hgb Conc. 32.8 g/dL (33.0-37.0); Mean Corpuscular Volume 88.4 fL (80.0-94.0); Mean Platelet Volume 8.6 fL (7.4-10.4); Platelet Count 252 10^3/uL (130-400); Red Blood Cell Count 4.14 10^6/uL (4.70-6.10); Red Cell Dist. Width 15.1 % (11.5-14.5); White Blood Cell Count 7.1 10^3/uL (4.8-10.8)
[2024-09-07 06:06] LABS: PT 18.9 Sec (11.4-14.6)
[2024-09-07 06:26] LABS: Blood Urea Nitrogen 22 mg/dl (9-20); Calcium 9.4 mg/dl (8.4-10.2); Chloride 76 mmol/L (98-107); Estimated Creatinine Clearance 75 ml/min; Glucose 138 mg/dl (70-99); Magnesium 1.8 mg/dl (1.6-2.3); Potassium 3.5 mmol/L (3.5-5.1); Sodium 134 mmol/L (135-145); eGFR > 60.00
[2024-09-07 06:37] LABS: Carbon Dioxide 45 mmol/L (22-30)
[2024-09-07] MEDS: DUONEB 3 ML INH ×3 (08:13→19:41)
[2024-09-07] MEDS: PULMICORT 0.5 MG INH ×2 (08:13→19:41)
[2024-09-07] MEDS: ZITHROMAX 250 MG PO (08:43)
[2024-09-07] MEDS: ZOLOFT 100 MG PO (08:43)
[2024-09-07] MEDS: PROTONIX 40 MG PO (08:43)
[2024-09-07] MEDS: AFRIN NASAL SPRAY 2 SPRAYS NASAL ×2 (08:43→20:47)
[2024-09-07] MEDS: KCL 40 MEQ PO (08:43)
[2024-09-07] MEDS: ASPIR LOW (ENTERIC COATED) 81 MG PO (08:44)
[2024-09-07] MEDS: TOPROL XL PO (08:46)
[2024-09-07] MEDS: LASIX 40 MG IV (08:46)
--- NOTE | 2024-09-07 09:02 | W.PN.HOSP.TC ---
Today's Communication/Plan
-
see A/P
Assessment / Plan
Assessment / Plan
A/P:
# acute on chronic hypercapnic hypoxemic respiratory failure, multiple etiologies including acute on chronic systolic CHF exacerbation and acute COPD exacerbation (less likely), both possibly affected by chronically elevated right hemidiaphragm,
possible pleural effusion
off BiPAP during the day, back on at night
Cont O2 support at 8L NC and wean as tolerated
repeat ECHO with severely dilated right atrium and dilated right ventricle EF 40%,
cont IV Lasix 80 BID with metolazone 2.5 mg daily with hold parameter, follow I/Os, daily weights
R sided chest tube placed due to loculated effusion
thora labs reviewed- exudative fluid
Follow pleural fluid cultures and cytopathology
Empiric Antibiotics Ceftriaxone/azithromycin started for right-sided empyema
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
Pulm on board
Card on board
# chronic hypercapnic hypoxemic respiratory failure
# oxygen dependent COPD with compensated metabolic alkalosis
baseline on 5L NC, currently on 5L NC
cont nebs, MDIs
no wheezing, hold on systemic steroids
consider diamox if alkalosis worsens, pt likely has minimal reserve with COPD and elevated right hemidiaphragm
apprec pulm
# bilateral LE edema with increased abdominal girth and weight gain
BL US LE neg for DVT, and no ascites on US
# Paroxysmal atrial fibrillation on chronic Coumadin therapy
INR was supratherapeutic, resolved
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
cont metoprolol and verapamil, both with holding parameters
# Severe MR s/p MV repair via mini thoracotomy 10/2013 at [facility] with mechanical valve
resumed Coumadin
cont asa, statin, metoprolol
# Anxiety
Continue sertraline
# Obstructive sleep apnea on CPAP
# Hypokalemia
replete K
DVT prophylaxis, resumed Coumadin
CODE STATUS-- full code
total time spent 51 min
Anticipated Discharge: > 48 hours
Subjective/Interval History
-
Date of Service: September 07, 2024
Objective Data
-
Labs:
Laboratory Results
09/07/24
05:44
WBC 7.1
Hgb 12.0 L
Hct 36.6 L
Plt Count 252
PT 18.9 H
INR 1.60
Sodium 134 L
Potassium 3.5
Chloride 76 L
Carbon Dioxide 45 H
BUN 22 H
Creatinine 1.0
Glucose 138 H
Calcium 9.4
Vital Signs:
Vital Signs
Temp Pulse Resp BP Pulse Ox
36.7 C 80 20 95/68 93
09/07/24 07:56 09/07/24 08:46 09/07/24 08:17 09/07/24 08:46 09/07/24 08:17
I&O
09/06/24 09/07/24 09/08/24
06:59 06:59 06:59
Intake Total 850 / 850 660 / 660
Output Total 4950 / 4950 2810 / 2810
Balance -4100 / -4100 -2150 / -2150
Review of Systems
-
All other systems: Reviewed and negative
Physical Exam
-
General: Well Developed, Well Nourished, Respiratory Distress (chronic) and Conversant
HEENT: Normocephalic, Atraumatic and Oxygen (5L NC)
Respiratory: Non Labored Respirations and Chest Tubes (R side ); Negative Accessory Resp Muscle Use
Cardiac: S1/S2 and Irregular Rhythm
GI: Soft, Nontender and Normal Bowel Sounds
Musculoskeletal: No Clubbing, No Cyanosis, Edema, Right Lower Extrem and Edema, Left Lower Extrem
Neuro: Awake and Alert
Psych: Calm and Intact Judgement/Insight
Data Reviewed
-
Diagnostic Radiology: Report Reviewed by me
Labs: Labs Reviewed by me
--- NOTE | 2024-09-07 09:50 | W.PN.PUL3 ---
Today's Communication / Plan
-
Right-sided chest tube placed on 09/06 --> follow up cultures and cytopathology
tPA/Dornase instillation today and plan for total of 6 doses; daily CXR
Continue antibiotics given concern for right-sided parapneumonic effusion
Continue Coumadin given INR is approaching 2.0; trend INR daily with goal 2-3
Continue nocturnal BiPAP and resume CPAP upon discharge; he should discuss transitioning to BiPAP with his private scalemaker
Diuretics with holding parameters
Follow renal function and electrolytes
Continue oxygen supplementation with goal 88-95%-close to his baseline -check ambulatory pulse oximetry prior to discharge
We will continue to follow
Assessment
-
64-year-old man with complicated cardiac history, history of mechanical valve prosthesis, on Coumadin, heart failure, COPD on oxygen therapy, admitted with shortness of breath, weight gain and worsening hypoxemia with increased work of breathing.
Not bronchospastic on exam. Abnormal CT chest with right hemidiaphragm elevation and pleural effusion. We were consulted for evaluation of this
.
Impression:
Acute on chronic hypoxemic respiratory failure up to 8 L of nasal cannula required noninvasive mechanical ventilation for increased work of breathing.
Baseline 4 L nasal cannula
Multiloculated right pleural effusion suspected to be parapneumonic s/p chest tube (placed by IR on 09/06/2024 - exudative effusion; LDH: 181))
Acute on chronic heart failure with reduced ejection/increased weight: proBNP 1170
CT chest with bilateral groundglass opacities: Suggestive of pulmonary edema with right sided small-moderate sized pleural effusion
Echocardiogram 04/15/2023 LVEF 45 to 50%, stage II diastolic dysfunction
Echocardiogram 09/03/2024: Reviewed: Dilated left ventricle with moderately reduced left ventricular systolic function. But 40%. Moderate concentric LVH. Dilated right ventricular size with reduced RV function. Severely dilated right atrium.
Mechanical valve prosthesis no mitral regurgitation seen.
CT chest abnormal: Right hemidiaphragm elevation/right sided pleural effusion.
Conditions present prior admission:
Severe MR-history of mitral valve prolapse-status post valve repair 10/2013/previously dehisced mitral valve ring status post [facility] mechanical valve replacement [facility] in 2013, paravalvular plug placed at [facility]
07/2016 due to paravalvular leak.
History of AVNRT
Paroxysmal atrial fibrillation on anticoagulation-Coumadin
GERD
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
Obstructive sleep apnea on CPAP therapy
COPD on 4 L of oxygen-unknown PFTs. Does not follow-up locally. No PFT available
On aformoterol/budesonide
Patient is a never smoker
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
Essential hypertension
Hyperlipidemia
Assessment and plan:
Clinical picture consistent with heart failure-increased proBNP, groundglass opacities on CAT scan, weight gain.
Atrial fibrillation is rate controlled
Echocardiogram noted.
Continue IV diuretics
Cardiology correspondence reviewed.
Coumadin on hold waiting for thoracentesis.
Trend INR
-
Continue oxygen supplementation, wean down as able.
Chronic hypercapnic respiratory failure,ABG 09/05/2024: 7.45/77/59 (compensated)
Compensatory metabolic alkalosis
Hypercapnia likely due to restriction from right hemidiaphragm paralysis. Diaphragm is paralyzed s/p multiple cardiac surgeries. At least since 2014
Does not follow-up locally but has a CPAP at night due to diagnosis of obstructive sleep apnea. Hypercapnia likely from diaphragm elevation and pulm restriction.
Can continue with BiPAP / while in the hospital. He feels better with it.
-
Abnormal CT chest: Chronic right hemidiaphragm elevation since 2014 or longer.
Right pleural effusion is multiloculated and suspected to be parapneumonic (may be empyema)
- Given concern for infectious process, he underwent R-sided chest tube via IR on 09/06/2024; Continue ABx with rocephin, and change zithromax to doxy given prolonged QTc (QTc: 591ms); follow up cultures and cytopathology; likely psuedo-exudative
due to diuresis
Will instill tPA/dornase into chest tube as drainage has significantly slowed down as of today (09/07/2024)
Continue diuretics 40mg IV BID, holding for SBP<100mmHg
Coumadin resumed
-
Patient has nonspecific mediastinal lymphadenopathy, enlargement may be due to volume overload.
Will need repeat CT scan with IV contrast in 3 months.
Can follow-up with his scalemaker. Patient follow-up with Dr. Echevarria from [facility].
-
History of COPD: On chronic oxygen 4 to 5 L. Never smoker. Prior exposure to fumes at a worksite
No evidence for acute exacerbation.
Maintain SpO2 88-95%
Continue Pulmicort nebulized takes at home
Replaced Afromoterol with duoneb TID; continue budesonide; resume home nebulized inhalers upon discharge
-
DVT prophylaxis-on coumadin; goal INR 2-3
-
Will follow

Data reviewed:
Chest US 09/06/2024: Multiloculated right pleural effusion.
Lower extremity Dopplers 09/04/2024: No evidence for DVT
-
Abdominal ultrasound 09/04/2024: Small amount of MAT hepatic free fluid. No ascites.
-
CT chest 09/03/2024: Reviewed,
1. Small to moderate right pleural effusion.
2. Groundglass opacities in both lungs, greatest in the right upper lobe, suspicious for mild edema versus hypoventilatory changes.
3. Elevated right hemidiaphragm.
4. Cardiomegaly.
5. Mild mediastinal lymphadenopathy, nonspecific but probably more likely to be reactive.
6. Mild upper abdominal ascites.
Total time spent today was 38 minutes for this encounter. Time includes reviewing laboratory test/imaging results, reviewing pertinent medical records, obtaining and reviewing medical history, performing an appropriate exam, ordering medications,
tests and procedures. Time also includes documentation of this encounter, coordinating patient care and communicating with other healthcare professionals. Total time does not include separately billed tests performed on this date of service.
Subjective Data
-
Date of Service:
Date of Service: September 07, 2024
Chief Complaint: Pulmonary Follow Up (Pleural effusion/hypoxemic respiratory failure)
Subjective:
Patient seen and evaluated today at bedside. CXR shows mild improvement in right-sided basilar opacity. Right-sided chest tube has removed 610 cc over last 24 hours. Patient feels better today with improved shortness of breath. Current heart
rate 104 and SpO2 97% on 5 L/min via midflow nasal cannula. Wore BiPAP overnight at 12/5 bled with 3L/min.
Review of Systems
General: Other (Negative unless mentioned above)
Objective Data
Data Reviewed
Vital Signs / I&O / Oxygen:
Vital Signs
Temp Pulse Resp BP Pulse Ox
98.0 F 81 27 105/67 99
09/07/24 07:56 09/07/24 10:00 09/07/24 10:00 09/07/24 10:00 09/07/24 11:03
Intake and Output
09/06/24 09/07/24 09/08/24
06:59 06:59 06:59
Intake Total 850 / 850 660 / 660 240 / 240
Output Total 4950 / 4950 2810 / 2810 400 / 400
Balance -4100 / -4100 -2150 / -2150 -160 / -160
SaO2 99
Nasal Cannula flow liters per 5
minute
Physical Exam
General: Respiratory Distress (negative), Comfortable, Chills (negative), Sweats (negative) and Good Appetite
HEENT: Normocephalic, Anicteric and Moist Mucous Membranes
Cardiovascular: S1-S2 and Peripheral Edema (+2 pitting lower extremity edema bilaterally)
Respiratory: Wheeze (negative), Crackles (right base), Rhonchi (negative), Non-Labored Respirations and Other (Decreased breath sounds in the right)
GI: Soft, Non Distended, Non Tender and Normal Bowel Sounds
Neurology: AO x 3 and Tremors (negative)
Skin: Warm, Dry, Cyanosis (negative) and Jaundice (negative)
Labs/Micro/Reports
Lab Data
09/07/24 05:44
09/07/24 05:44
Laboratory Results
09/07/24
05:44
PT 18.9 H
INR 1.60
--- NOTE | 2024-09-07 10:01 | W.PN.CARDCBS ---
Today's Communication / Plan
-
He continues to improve. His weight is down 30 pounds. Will continue IV Lasix with metolazone. Creatinine remains stable.
Chest tube in place and continue chest tube management.
Continue Coumadin 5 mg daily. Follow INR. Goal INR 2.5-3.5.
If his INR falls further would start IV heparin.
A-fib remains rate controlled. Continue Toprol 50 mg p.o. twice daily. Will stop verapamil
Impression / Plan
-
Please refer to office note dated 09/03/24
Primary Jewel Setter: Dr. Salazar
Assessment:
-Presentation with SOB, LE edema
-Acute hypoxic respiratory failure, requiring BIPAP in ER
-Acute on chronic HFrEF
-R pleural effusion
-PAF
-History of AVNRT
-Severe MR
-s/p MV repair via mini thoracotomy 10/2013 at [facility]
-Previously dehisced mitral valve ring status post [facility] mechanical mitral valve replacement at [facility] in 2013 with redo sternotomy
-Paravalvular plug placed at [facility] 07/2016 due to symptomatic worsening paravalvular leak
-chronic coumadin therapy, managed by DCA
-COPD, on 4L NC home O2
-HLD
-JENNIFER on CPAP
-PVCs
-anxiety
ECHO 04/15/23: EF 45 to 50%, mild concentric LVH, stage II diastolic dysfunction, status post mechanical mitral valve prosthesis with peak/mean gradients 19/9 mmHg, no MR, mild to moderate AR, mild TR, PAP 49 mmHg, dilated aorta measuring 4.1 cm.
Echo 09/03/24: LVEF 40%, moderate LVH, dilated RV with reduced RV function, mechanical mitral valve with mean gradient of 5 and no MR. PA pressure 60-65. Ascending aorta 4.3 cm
Plan:
-He has lost about 30 pounds and continues to improve. Will continue with IV diuresis as creatinine remains stable. Right chest tube now in place and draining.
-cont Coumadin today as INR 1.6
-Would pursue a rate control strategy with A-fib for now until plan for pleural effusion elevated hemidiaphragm in place.
-His blood pressure remains borderline. cont Toprol 50mg po bid. will stop verapamil. will try to continue with diuresis.
-Echo was reviewed and discussed with patient. Mechanical mitral valve is stable. PA pressures are elevated. Will continue diuresis
-Lexiscan nuclear stress test from 2021 with fixed inferior defect and EF of 45%.
-CT scan reviewed with groundglass opacities in the lungs, elevated right hemidiaphragm, and mild ascites.
-
Progress Note - Jewel Setter
Subjective
Date of Service: September 07, 2024
Chest tube in place. Breathing is significantly improved. He has diuresed well.
Objective
Labs:
09/07/24 05:44
09/07/24 05:44
Labs
Hgb 12.0 g/dL (13.0-18.0) L 09/07/24 05:44
Hct 36.6 % (39.0-52.0) L 09/07/24 05:44
Plt Count 252 10^3/uL (130-400) 09/07/24 05:44
PT 18.9 Sec (11.4-14.6) H 09/07/24 05:44
INR 1.60 09/07/24 05:44
Sodium 134 mmol/L (135-145) L 09/07/24 05:44
Potassium 3.5 mmol/L (3.5-5.1) 09/07/24 05:44
BUN 22 mg/dl (9-20) H 09/07/24 05:44
Creatinine 1.0 mg/dL (0.7-1.3) 09/07/24 05:44
Glucose 138 mg/dl (70-99) H 09/07/24 05:44
Vital Signs and I&O:
Vital Signs
Temp Pulse Resp BP Pulse Ox
98.0 F 81 27 105/67 96
09/07/24 07:56 09/07/24 10:00 09/07/24 10:00 09/07/24 10:00 09/07/24 08:44
Vital Signs
Temp Pulse Resp BP Pulse Ox
98.0 F 81 27 105/67 96
09/07/24 07:56 09/07/24 10:00 09/07/24 10:00 09/07/24 10:00 09/07/24 08:44
Intake & Output
09/05/24 09/06/24 09/07/24 09/08/24
06:59 06:59 06:59 06:59
Intake Total 810 / 810 850 / 850 660 / 660
Output Total 5680 / 5680 4950 / 4950 2810 / 2810
Balance -4870 / -4870 -4100 / -4100 -2150 / -2150
Physical Exam
Physical Exam
GEN: No distress, awake, Ox3
HEENT: supple, anicteric, mmm
LUNGS: scatt rhonchi, R chest tube
CV: Irreg, S1/S2, 1/6 syst LSB, no gallop
ABD: soft, BS+, NT/ND
EXT: +1 edema
NEURO: Gross non-focal
SKIN: No rash
--- NOTE | 2024-09-07 10:27 | CM ---
Patient with Dx acute on chronic hypercapnic hypoxemic respiratory failure, CHF, COPD, R pleural effusion s/p thoracentesis. O2 5L midflow. BiPAP HS. Chest tube for loculated effusion. Receiving IV Lasix, IV Abx, IVF. PT 09/05; rec home PT vs
none. OT 09/04 rec HH vs outpt.
Spoke with patient who resides alone in a 3 story townhouse.
The patient has been independent in ADLs and ambulation.
He is retired and states he is not very active due to need to use home O2.
He has an exercise bike and plans on starting to use it.
He is able to drive and has food delivered.
No housing/food/utility/transport insecurity.
DME - home O2 through [employer]
VN - remote prior VN
SNF - none
Recent pulmonary rehab.
PCP - Juma Menjivar
Pharmacy - [facility]
Offered outpatient PT/OT vs VN for PT/OT and VN nurse for HF Education; patient declined.
Choi check with patient's pharmacy. Spoke with pharmacist; Jardiance 10mg PO $469.05 and Farxiga 10mg PO - not covered, needs prior auth.
Patient declines Jardiance as even with Jardiance 14day Free Trial card he cannot afford. He is asking to speak with Dr Salazar about the meds---> message sent to Dr Salazar & Mercedez.
Plan home.
[2024-09-07] MEDS: STERILE WATER FOR INJECTION 20 ML IV (11:25)
[2024-09-07] MEDS: ROCEPHIN 2000 MG IV (11:26)
[2024-09-07] MEDS: MIRALAX 17 GRAMS PO (11:26)
[2024-09-07] MEDS: SENOKOT-S 1 TABLET PO ×2 (11:26→20:46)
--- NOTE | 2024-09-07 12:03 | PTCARENOTE ---
Assumed care for pt during the day, received report via RN. Pt is AAOx3 and [place]. Pt has hearing aids in. Pt is A-fib on the monitor with bundle branch block and occasional PVC's. Pt has +2 pitting bilateral lower extremity edema. Pt on 5L midflow.
Chest tube on right side to wall suction, dressing is clean dry and intact. Pt states that he finds in uncomfortable while lying flat on his back. Pt using the urinal standing at bedside with standby assist. Pt states he has not had a bowel movement
in [address] Newsome made aware, and ordered laxative. Senokot and miralax given. Pt OOB with RW with PT. Pt tolerated well. Pt in the chair currently. Pt rings appropriately. Call bowden is within reach.
[2024-09-07] MEDS: COUMADIN 5 MG PO (12:30)
[2024-09-07] MEDS: ZAROXOLYN PO (16:28)
[2024-09-07] MEDS: LASIX IV (17:14)
--- NOTE | 2024-09-07 17:30 | W.SUR.POST ---
Surgical Immediate Post Op
Note
tPA/dornase chest tube instillation procedure: Session #2 of 6
Date of procedure: 09/07/2024
Performed by: Dr. Sherwood
Medications used: Alteplase 10mg, dornase 5mg
Procedure details: After verbal consent obtained, patient was positioned into recumbent position so that I could access the chest tube. Chest tube was clamped, and sterile technique was employed including: hand washing, sterile gloves, mask and
gown. Chest tube tubing was disconnected so that I could access opening, and normal saline 0.9% was flushed into chest tube without resistance. 10mg of tPA and 5mg of dornase were instilled without incident, and flushed with 10cc of NS 0.9% after
each instillation. Alcohol wipes were used to wipe down the catheter tips and the chest tube tubing site before and after each instillation to maximize sterility. Chest tube was then clamped and is to remain off suction for 90-120 minutes, at
which point the chest tube should be unclamped and then placed back onto suction at [id number] (unless specified otherwise by provider). Bedside RN assisted with procedure. Patient tolerated procedure without any immediate complications, and I
answered all of his questions.
[2024-09-07] MEDS: CATHFLO/ACTIVASE 50 MG INTRAPLEUR (18:40)
[2024-09-07] MEDS: CATHFLO/ACTIVASE 50 ML INTRAPLEUR (18:40)
[2024-09-07] MEDS: NSS 25 ML INTRAPLEUR (18:41)
[2024-09-07] MEDS: PULMOZYME 50 MG INTRAPLEUR (18:41)
[2024-09-07] MEDS: PULMOZYME 50 ML INTRAPLEUR (18:41)
[2024-09-07] MEDS: ProAmatine 10 MG PO (19:23)
[2024-09-07] MEDS: TOPROL XL 50 MG PO (20:46)
[2024-09-07] MEDS: VALTREX 1000 MG PO (20:47)
[2024-09-07] MEDS: CRESTOR 5 MG PO (20:47)
--- NOTE | 2024-09-07 22:27 | PTCARENOTE ---
Rec'd pt from previous RN. Pt able to ambulate from chair to bed with minimal assistance. Pt states that it is uncomfortable for him to sleep on his back or L side and he is only able to sleep on R side. This RN ensured R chest tube is not being
obstructed due to position at this time. Pt c/o pain at insertion site, this RN explained to pt that pain may be exacerbated by laying on R side, pt verbalizes understanding. Morphine given per MAR for pain. Chest tube with moderate amounts of red
drainage. Call bowden within reach. Pt ringing appropriately
[2024-09-08] VITALS (50 sets, daily range): BP systolic 82–156; BP diastolic 49–109; PULSE 2–102; BMI 28.8
--- NOTE | 2024-09-08 04:06 | DOWNTIME ---
There was a [employer] Client Applications Instructor Downtime on 09/08/2024 from 0100 to 09/08/2024 at 0355. Downtime documentation of patient's care, including medication administrations, has been reconciled in the electronic record per guidelines. Refer to the
patient's paper chart under the miscellaneous tab to see printed paper medication records and downtime forms.
[2024-09-08 05:40] LABS: Hematocrit 36.6 % (39.0-52.0); Hemoglobin 12.1 g/dL (13.0-18.0); Mean Corp Hgb Conc. 33.1 g/dL (33.0-37.0); Mean Corpuscular Hgb 28.2 pg (27.0-31.0); Mean Corpuscular Volume 85.3 fL (80.0-94.0); Mean Platelet Volume 8.9 fL (7.4-10.4); Platelet Count 281 10^3/uL (130-400); Red Blood Cell Count 4.29 10^6/uL (4.70-6.10); Red Cell Dist. Width 15.1 % (11.5-14.5)
[2024-09-08 05:53] LABS: INR 1.88; PT 21.4 Sec (11.4-14.6)
[2024-09-08 05:59] LABS: Blood Urea Nitrogen 24 mg/dl (9-20); Calcium 9.4 mg/dl (8.4-10.2); Chloride 77 mmol/L (98-107); Estimated Creatinine Clearance 94 ml/min; Glucose 141 mg/dl (70-99); Potassium 3.5 mmol/L (3.5-5.1); Sodium 134 mmol/L (135-145); eGFR > 60.00
[2024-09-08 06:12] LABS: Carbon Dioxide 42 mmol/L (22-30)
[2024-09-08] MEDS: DUONEB 3 ML INH ×3 (07:50→19:36)
[2024-09-08] MEDS: PULMICORT 0.5 MG INH ×2 (07:50→19:36)
--- NOTE | 2024-09-08 08:20 | W.PN.HOSP.TC ---
Addendum entered and electronically signed by Flory Newsome MD 09/08/24 18:53:
# Mild Hyponatremia
Addendum entered and electronically signed by Flory Newsome MD 09/08/24 08:28:
Added midodrine 5 mg PRN for SBP < 100
Original Note:
Today's Communication/Plan
-
see A/P
Assessment / Plan
Assessment / Plan
A/P:
# acute on chronic hypercapnic hypoxemic respiratory failure, multiple etiologies including acute on chronic systolic CHF exacerbation and acute COPD exacerbation (less likely), both possibly affected by chronically elevated right hemidiaphragm,
possible pleural effusion
off BiPAP during the day, back on at night
Cont O2 support at 8L NC and wean as tolerated
repeat ECHO with severely dilated right atrium and dilated right ventricle EF 40%,
cont IV Lasix 80 BID with metolazone 2.5 mg daily with hold parameter, follow I/Os, daily weights
R sided chest tube placed due to loculated effusion
thora labs reviewed- exudative fluid
Follow pleural fluid cultures and cytopathology
Started empiric antibiotics Ceftriaxone/azithromycin for right-sided empyema
s/p tPA chest tube instillation procedure 09/07 and plan for total of 6 doses; daily CXR
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
Pulm on board
Card on board
# chronic hypercapnic hypoxemic respiratory failure
# oxygen dependent COPD with compensated metabolic alkalosis
baseline on 4-5L NC, currently on 4L NC
cont nebs, MDIs
no wheezing, hold on systemic steroids
consider diamox if alkalosis worsens, pt likely has minimal reserve with COPD and elevated right hemidiaphragm
apprec pulm
# bilateral LE edema with increased abdominal girth and weight gain
BL US LE neg for DVT, and no ascites on US
# Paroxysmal atrial fibrillation on chronic Coumadin therapy
INR was supratherapeutic, resolved
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
cont metoprolol and verapamil, both with holding parameters
# Severe MR s/p MV repair via mini thoracotomy 10/2013 at [facility] with mechanical valve
resumed Coumadin
cont asa, statin, metoprolol
# Anxiety
Continue sertraline
# Obstructive sleep apnea on CPAP
# Hypokalemia
replete K
DVT prophylaxis, resumed Coumadin
CODE STATUS-- full code
Anticipated Discharge: > 48 hours
Subjective/Interval History
-
Date of Service: September 08, 2024
Objective Data
-
Labs:
Laboratory Results
09/08/24
05:19
WBC 8.0
Hgb 12.1 L
Hct 36.6 L
Plt Count 281
PT 21.4 H
INR 1.88
Sodium 134 L
Potassium 3.5
Chloride 77 L
Carbon Dioxide 42 H
BUN 24 H
Creatinine 0.8
Glucose 141 H
Calcium 9.4
Vital Signs:
Vital Signs
Temp Pulse Resp BP Pulse Ox
36.5 C 85 16 101/61 95
09/08/24 03:00 09/08/24 07:59 09/08/24 07:59 09/08/24 06:00 09/08/24 07:59
I&O
09/07/24 09/08/24 09/09/24
06:59 06:59 06:59
Intake Total 660 / 660 660 / 660
Output Total 2810 / 2810 3675 / 3675 80 / 80
Balance -2150 / -2150 -3015 / -3015 -80 / -80
Review of Systems
-
All other systems: Reviewed and negative
Physical Exam
-
General: Well Developed, Well Nourished, Respiratory Distress (chronic) and Conversant
HEENT: Normocephalic, Atraumatic and Oxygen (4L NC)
Respiratory: Non Labored Respirations and Chest Tubes (R side ); Negative Accessory Resp Muscle Use
Cardiac: S1/S2 and Irregular Rhythm
GI: Soft, Nontender and Normal Bowel Sounds
Musculoskeletal: No Clubbing, No Cyanosis, Edema, Right Lower Extrem and Edema, Left Lower Extrem
Neuro: Awake and Alert
Psych: Calm and Intact Judgement/Insight
Data Reviewed
-
Diagnostic Radiology: Report Reviewed by me
Labs: Labs Reviewed by me
--- NOTE | 2024-09-08 08:35 | W.PN.CARDCBS ---
Addendum entered and electronically signed by Gerber Morales DO 09/08/24 11:47:
I saw and examined the patient.
The Tankage Grinder Operator's note was reviewed and I agree with the note.
Comment:
Plan:
Episode of VT with spontaneous conversion
Continue potassium repletion. Additional 40 meq potassium today.
Mg stable. Cont to keep K> 4 and Mg >2.
IV Amiodarone
Cont monitor
Trend troponin
Echo urgent
Likely cath next 24 hrs
Hold coumadin and transition to IV Heparin bridge.
Discussed with nursing and with primary service
Call placed to pt sister to update and it went right to voicemail.
Addendum entered and electronically signed by Abigail Betancourt PA-C 09/08/24 10:26:
Tried to call pt's sister to give update regarding AM events. Went right to voicemail. Will try later.
Original Note:
Today's Communication / Plan
-
Continue diuresis
Continue Toprol w/ hold parameters
Check echo, EKG, troponin
NPO after midnight
Hold coumadin
Plan for cath in AM.
Impression / Plan
-
Please refer to office note dated 09/03/24
Primary Crm Functional Analyst: Dr. Salazar
Assessment:
Presentation with SOB, LE edema
Acute hypoxic respiratory failure, requiring BIPAP in ER
Acute on chronic HFrEF
R pleural effusion
Ventricular Tachycardia
PAF
History of AVNRT
Severe MR
s/p MV repair via mini thoracotomy 10/2013 at [facility]
Previously dehisced mitral valve ring status post [facility] mechanical mitral valve replacement at [facility] in 2013 with redo sternotomy
Paravalvular plug placed at [facility] 07/2016 due to symptomatic worsening paravalvular leak
Chronic coumadin therapy, managed by [facility]
COPD, on 4L [place] home O2
HLD
JENNIFER on CPAP
PVCs
Anxiety
ECHO 04/15/23: EF 45 to 50%, mild concentric LVH, stage II diastolic dysfunction, status post mechanical mitral valve prosthesis with peak/mean gradients 19/9 mmHg, no MR, mild to moderate AR, mild TR, PAP 49 mmHg, dilated aorta measuring 4.1 cm.
Echo 09/03/24: LVEF 40%, moderate LVH, dilated RV with reduced RV function, mechanical mitral valve with mean gradient of 5 and no MR. PA pressure 60-65. Ascending aorta 4.3 cm
Echo 09/08/2024: Study pending
Plan:
-Presented from [facility] office w/ worsening SOB and hypoxia, requiring BiPAP in ER. Admitted with acute heart failure.
-Diuresing with IV lasix and metolazone. Weight down 32 lbs this admission. Creat stable at 0.8.
-R chest tube in place.
-Persistent atrial fibrillation noted. HR stable on Toprol 50mg BID w/ hold parameters.
-After seen this AM, he went into VT for ~55 seconds. Unresponsive during episode. Compressions were about to be started when he came to.
-Check EKG, trop. Repeat limited echo to reassess EF.
-Hold coumadin. NPO after midnight. Plan for cath in AM.
-Verapamil stopped due to hypotension. PRN midodrine new this admission.
-Echo 09/03/2024 as noted above w/ EF 40% and stable mitral valve.
-Lexiscan nuclear stress test from 2021 with fixed inferior defect and EF of 45%.
-CT scan reviewed with groundglass opacities in the lungs, elevated right hemidiaphragm, and mild ascites.
-On chronic O2 as OP.
Progress Note - Crm Functional Analyst
Subjective
Date of Service: September 08, 2024
Breathing improving. Unresponsive episode w/ VT. Noted nausea following episode.
Objective
Labs:
09/08/24 05:19
09/08/24 05:19
Labs
Hgb 12.1 g/dL (13.0-18.0) L 09/08/24 05:19
Hct 36.6 % (39.0-52.0) L 09/08/24 05:19
Plt Count 281 10^3/uL (130-400) 09/08/24 05:19
PT 21.4 Sec (11.4-14.6) H 09/08/24 05:19
INR 1.88 09/08/24 05:19
Sodium 134 mmol/L (135-145) L 09/08/24 05:19
Potassium 3.5 mmol/L (3.5-5.1) 09/08/24 05:19
BUN 24 mg/dl (9-20) H 09/08/24 05:19
Creatinine 0.8 mg/dL (0.7-1.3) 09/08/24 05:19
Glucose 141 mg/dl (70-99) H 09/08/24 05:19
Vital Signs and I&O:
Vital Signs
Temp Pulse Resp BP Pulse Ox
97.7 F 85 16 101/61 95
09/08/24 03:00 09/08/24 07:59 09/08/24 07:59 09/08/24 06:00 09/08/24 07:59
Vital Signs
Temp Pulse Resp BP Pulse Ox
97.7 F 85 16 101/61 95
09/08/24 03:00 09/08/24 07:59 09/08/24 07:59 09/08/24 06:00 09/08/24 07:59
Intake & Output
09/06/24 09/07/24 09/08/24 09/09/24
06:59 06:59 06:59 06:59
Intake Total 850 / 850 660 / 660 660 / 660
Output Total 4950 / 4950 2810 / 2810 3675 / 3675 80 / 80
Balance -4100 / -4100 -2150 / -2150 -3015 / -3015 -80 / -80
Physical Exam
Physical Exam
GEN: No distress, awake, alert, oriented x3
HEENT: supple, anicteric, mmm
LUNGS: scatt rhonchi, R chest tube
CV: Irreg, S1/S2, 1/6 syst LSB, no gallop
EXT: Trace edema. No clubbing or cyanosis.
NEURO: Gross non-focal
SKIN: No rash
[2024-09-08] MEDS: VIBRAMYCIN 100 MG PO ×2 (08:58→20:08)
[2024-09-08] MEDS: ASPIR LOW (ENTERIC COATED) 81 MG PO (08:59)
[2024-09-08] MEDS: ZOLOFT 100 MG PO (08:59)
[2024-09-08] MEDS: AFRIN NASAL SPRAY 2 SPRAYS NASAL (08:59)
[2024-09-08] MEDS: PROTONIX 40 MG PO (08:59)
[2024-09-08] MEDS: TOPROL XL 50 MG PO ×2 (08:59→20:08)
[2024-09-08] MEDS: MIRALAX 17 GRAMS PO ×2 (09:00→20:35)
[2024-09-08] MEDS: LASIX 40 MG IV ×2 (09:00→17:38)
[2024-09-08] MEDS: SENOKOT-S 1 TABLET PO ×2 (09:00→20:36)
[2024-09-08] MEDS: KCL 40 MEQ PO (09:00)
--- NOTE | 2024-09-08 09:35 | W.PN.PUL3 ---
Today's Communication / Plan
-
Right-sided chest tube placed on 09/06 --> follow up cultures; cytopathology shows no evidence of malignancy
tPA/Dornase instillation today (session #3 of 6) and plan for total of 6 doses; daily CXR
Continue antibiotics given concern for right-sided parapneumonic effusion
Continue Coumadin given INR is approaching 2.0; trend INR daily with goal 2-3
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
Diuretics with holding parameters
Amio gtt per cardiology
Replete K>4, Mg>2
Continue oxygen supplementation with goal 88-95%-close to his baseline - check ambulatory pulse oximetry prior to discharge
We will continue to follow
Assessment
-
64-year-old man with complicated cardiac history, history of mechanical valve prosthesis, on Coumadin, heart failure, COPD on oxygen therapy, admitted with shortness of breath, weight gain and worsening hypoxemia with increased work of breathing.
Not bronchospastic on exam. Abnormal CT chest with right hemidiaphragm elevation and pleural effusion. We were consulted for evaluation of this
.
Impression:
Acute on chronic hypoxemic respiratory failure up to 8 L of nasal cannula required noninvasive mechanical ventilation for increased work of breathing.
Baseline 4 L nasal cannula
Multiloculated right pleural effusion suspected to be parapneumonic s/p chest tube (placed by IR on 09/06/2024 - exudative effusion; LDH: 181))
Acute on chronic heart failure with reduced ejection/increased weight: proBNP 1170 on 09/03/2024
CT chest with bilateral groundglass opacities: Suggestive of pulmonary edema with right sided small-moderate sized pleural effusion
Echocardiogram 04/15/2023 LVEF 45 to 50%, stage II diastolic dysfunction
Echocardiogram 09/03/2024: Reviewed: Dilated left ventricle with moderately reduced left ventricular systolic function. But 40%. Moderate concentric LVH. Dilated right ventricular size with reduced RV function. Severely dilated right atrium.
Mechanical valve prosthesis no mitral regurgitation seen.
CT chest abnormal: Right hemidiaphragm elevation/right sided pleural effusion.
Nonsustained VT now on amiodarone infusion
Conditions present prior admission:
Severe MR-history of mitral valve prolapse-status post valve repair 10/2013/previously dehisced mitral valve ring status post [facility] mechanical valve replacement [facility] in 2013, paravalvular plug placed at [facility]
07/2016 due to paravalvular leak.
History of AVNRT
Paroxysmal atrial fibrillation on anticoagulation-Coumadin
GERD
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
Obstructive sleep apnea on CPAP therapy
COPD on 4 L of oxygen-unknown PFTs. Does not follow-up locally. No PFT available
On aformoterol/budesonide
Patient is a never smoker
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
Essential hypertension
Hyperlipidemia
Assessment and plan:
Clinical picture consistent with heart failure-increased proBNP, groundglass opacities on CAT scan, weight gain.
Atrial fibrillation is rate controlled
Developed nonsustained-VT this morning with unresponsiveness with echo showing global hypokinesis and no new echo findings compared to prior TTE on 09/03/2024. Left heart cath performed today showing no obstructive CAD with mild LAD myocardial
bridge and near normal LVEDP at 13 mmHg --> continue amiodarone gtt as per cardiology
Echocardiogram noted.
Continue IV diuretics with metolazone and maintain net neutral to slightly net negative fluid balance as LVEDP was 13mmHg on [facility] from today (09/08/2024)
Cardiology correspondence reviewed.
Trend INR
-
Continue oxygen supplementation, wean down as able.
Chronic hypercapnic respiratory failure,ABG 09/05/2024: 7.45/77/59 (compensated)
Compensatory metabolic alkalosis
Hypercapnia likely due to restriction from right hemidiaphragm paralysis. Diaphragm is paralyzed s/p multiple cardiac surgeries. At least since 2014
Does not follow-up locally but has a CPAP at night due to diagnosis of obstructive sleep apnea. Hypercapnia likely from diaphragm elevation and pulm restriction.
Can continue with BiPAP / while in the hospital. He feels better with it.
-
Abnormal CT chest: Chronic right hemidiaphragm elevation since 2014 or longer.
Right pleural effusion is multiloculated and suspected to be parapneumonic (may be empyema)
- Given concern for infectious process, he underwent R-sided chest tube via IR on 09/06/2024; Continue ABx with rocephin, and changed zithromax to doxy given prolonged QTc (QTc: 591ms on 09/07/2024); follow up cultures; cytopathology is negative
for malignancy; likely psuedo-exudative due to diuresis
Will continue to instill tPA/dornase into chest tube as drainage has significantly slowed down as of 09/07/2024
Continue diuretics 40mg IV BID, holding for SBP<100mmHg
Coumadin resumed
-
Patient has nonspecific mediastinal lymphadenopathy, enlargement may be due to volume overload.
Will need repeat CT scan with IV contrast in 3 months.
Can follow-up with his four slide machine setter. Patient follow-up with Dr. Echevarria from [facility].
-
History of COPD: On chronic oxygen 4 to 5 L. Never smoker. Prior exposure to fumes at a worksite
No evidence for acute exacerbation.
Maintain SpO2 88-95%
Continue Pulmicort (takes at home)
Replaced Afromoterol with duoneb TID --> change to xopenex and atrovent now that he had an arrythmia this AM; continue budesonide; resume home nebulized inhalers upon discharge
-
DVT prophylaxis-on coumadin; goal INR 2-3
-
Will follow

Data reviewed:
Chest US 09/06/2024: Multiloculated right pleural effusion.
Lower extremity Doppler 09/04/2024: No evidence for DVT
-
Abdominal ultrasound 09/04/2024: Small amount of MAT hepatic free fluid. No ascites.
-
CT chest 09/03/2024: Reviewed,
1. Small to moderate right pleural effusion.
2. Groundglass opacities in both lungs, greatest in the right upper lobe, suspicious for mild edema versus hypoventilatory changes.
3. Elevated right hemidiaphragm.
4. Cardiomegaly.
5. Mild mediastinal lymphadenopathy, nonspecific but probably more likely to be reactive.
6. Mild upper abdominal ascites.
Total time spent today was 52 minutes for this encounter. Time includes reviewing laboratory test/imaging results, reviewing pertinent medical records, obtaining and reviewing medical history, performing an appropriate exam, ordering medications,
tests and procedures. Time also includes documentation of this encounter, coordinating patient care and communicating with other healthcare professionals. Total time does not include separately billed tests performed on this date of service.
Subjective Data
-
Date of Service:
Date of Service: September 08, 2024
Chief Complaint: Pulmonary Follow Up (Pleural effusion/hypoxemic respiratory failure)
Subjective:
Patient had episode of VT this morning with spontaneous conversion. He remembers feeling very 'hot', then became unresponsive and rapid response was called. He was transferred to the ICU and started on IV amiodarone. Cardiology consulted, and
echo performed, showing global hypokinesis with EF 35-40% and enlarged RV. Echo shows similar findings compared to prior echo on 09/03/2024. When I saw the patient he was resting in bed in no acute distress. Heart rate 78, BP 106/74 and
saturating 93% on 6 L/min nasal cannula. He denies chest pain, FAULKNER, abdominal pain, SOB at rest, fevers or chills. Chest tube is minimally draining, with 80 cc removed since this morning. He wore his BiPAP overnight on 10/28 bled with 5 L/min.
Review of Systems
General: Other (Negative unless mentioned above)
Objective Data
Data Reviewed
Vital Signs / I&O / Oxygen:
Vital Signs
Temp Pulse Resp BP Pulse Ox
97.7 F 85 16 101/61 95
09/08/24 03:00 09/08/24 07:59 09/08/24 07:59 09/08/24 06:00 09/08/24 07:59
Intake and Output
09/07/24 09/08/24 09/09/24
06:59 06:59 06:59
Intake Total 660 / 660 660 / 660
Output Total 2810 / 2810 3675 / 3675 80 / 80
Balance -2150 / -2150 -3015 / -3015 -80 / -80
SaO2 95
Nasal Cannula flow liters per 5
minute
Physical Exam
General: Respiratory Distress (negative), Comfortable, Chills (negative), Sweats (negative) and Good Appetite
HEENT: Normocephalic, Anicteric and Moist Mucous Membranes
Cardiovascular: Irregular Rhythm and Peripheral Edema (+1 pitting lower extremity edema bilaterally)
Respiratory: Wheeze (negative), Crackles (right base), Rhonchi (negative), Non-Labored Respirations and Other (Decreased breath sounds in the right)
GI: Soft, Non Distended, Non Tender and Normal Bowel Sounds
Neurology: AO x 3 and Tremors (negative)
Skin: Warm, Dry, Cyanosis (negative) and Jaundice (negative)
Labs/Micro/Reports
Lab Data
09/08/24 05:19
09/08/24 05:19
Laboratory Results
09/08/24
05:19
PT 21.4 H
INR 1.88
Microbiology
09/06/24 14:34 Pleural Fluid Body Fluid Culture - Preliminary
No Growth After 18-24 Hours
09/06/24 14:34 Pleural Fluid Gram Stain - Preliminary
--- NOTE | 2024-09-08 09:53 | W.PN.UPDATE ---
Addendum entered and electronically signed by Flory Newsome MD 09/08/24 09:57:
Offered pt to update his family wrt the cardiac event.
He politely declined, stated that his sister has Parkinson and DAVID has cancer.
Pt stated that he will update his family himself.
Original Note:
Update Note
Progress Note Update
Cardiac arrhythmia (?V tach on tele) noted with pt brief LOC.
RN did chest compression briefly and pt resumed consciousness with resolution of arrhythmia.
Pt seen and examined at bedside. AOX3, no change from exam this morning.
Glass Presser at bedside.
Amiodarone drip started with plan for cardiac cath tmr.
Upgrade to ICU.
CC time 40 min
[2024-09-08 10:09] LABS: Troponin I 0.014 ng/ml
[2024-09-08] MEDS: ZOFRAN 4 MG IV (10:19)
[2024-09-08 10:30] LABS: % Basophils 0.5 % (0-2); % Eosinophils 8.1 % (0-6); % Immature Granulocytes 0.3 % (0-0.5); % Lymphocytes 14.3 % (20.5-51.1); % Neutrophils 65.8 % (42.2-75.2); Absolute Basophils 0.1 10^3/uL (0-0.2); Absolute Eosinophils 0.8 10^3/uL (0-0.7); Absolute Lymphocytes 1.3 10^3/uL (1.2-3.4); Absolute Neutrophils 6.1 10^3/uL (1.4-6.5); Hematocrit 40.6 % (39.0-52.0); Hemoglobin 13.3 g/dL (13.0-18.0); Mean Corp Hgb Conc. 32.8 g/dL (33.0-37.0); Mean Corpuscular Hgb 27.9 pg (27.0-31.0); Mean Corpuscular Volume 85.1 fL (80.0-94.0); Mean Platelet Volume 9.1 fL (7.4-10.4); Nucleated Red Blood Cells % 0 % (-); Platelet Count 322 10^3/uL (130-400); Red Blood Cell Count 4.77 10^6/uL (4.70-6.10); Red Cell Dist. Width 15.3 % (11.5-14.5); White Blood Cell Count 9.3 10^3/uL (4.8-10.8)
[2024-09-08] MEDS: CORDARONE 518 MG IV (10:35)
[2024-09-08 11:13] LABS: Hematocrit 40.2 % (39.0-52.0); Hemoglobin 13.3 g/dL (13.0-18.0); Mean Corp Hgb Conc. 33.1 g/dL (33.0-37.0); Mean Corpuscular Hgb 29.1 pg (27.0-31.0); Mean Platelet Volume 9.2 fL (7.4-10.4); Platelet Count 243 10^3/uL (130-400); Red Blood Cell Count 4.57 10^6/uL (4.70-6.10); Red Cell Dist. Width 15.1 % (11.5-14.5); White Blood Cell Count 3.9 10^3/uL (4.8-10.8)
[2024-09-08 11:25] LABS: Blood Urea Nitrogen 23 mg/dl (9-20); Calcium 9.5 mg/dl (8.4-10.2); Chloride 76 mmol/L (98-107); Estimated Creatinine Clearance 94 ml/min; Glucose 163 mg/dl (70-99); Magnesium 1.8 mg/dl (1.6-2.3); Potassium 3.8 mmol/L (3.5-5.1); Sodium 133 mmol/L (135-145); eGFR > 60.00
[2024-09-08 11:26] LABS: APTT 38.1 Sec (23.4-35.0)
[2024-09-08] MEDS: ROCEPHIN 2000 MG IV (12:16)
[2024-09-08] MEDS: PROTONIX IV 40 MG IV (12:17)
[2024-09-08] MEDS: STERILE WATER FOR INJECTION 20 ML IV (12:17)
[2024-09-08] MEDS: NSS (PRESERVATIVE FREE) 10 ML IV (12:17)
[2024-09-08] MEDS: HEPARIN 25000 UNITS/250 ML IV (12:20)
[2024-09-08 12:41] LABS: Carbon Dioxide 42 mmol/L (22-30)
--- NOTE | 2024-09-08 12:49 | PTCARENOTE ---
Late Entry: Assumed care of patient at beginning of this shift, able to take all ordered po meds. 4l n/c in use; chest tube with bloody drainage. At approximately 09:15, classroom monitor alarmed vtach. Patient found not responding with agonal
breathing. Rapid response, then code called. Unable to assess pulse; one chest compression given when patient woke up asking what was happening. Patient returned to afib with BBB, very large QRS wave. Dr Morales in to see patient and ordered
amiodarone infusion. Dr Newsome up to see patient and ordered t/f to ICU. Patient vomited; zofran ordered and given with relief. Patient transferred to 3365; report given to Bhavani.
[2024-09-08 12:59] LABS: INR 1.87; PT 21.7 Sec (11.4-14.6)
--- NOTE | 2024-09-08 13:53 | PTCARENOTE ---
Pt received to ICU bed 3365 from IMU. Amio gtt infusing per order. Heparin gtt started.
Pt AAOx3. Afib with BBB. +1 lower extremity edema. Lungs diminished. Chest tube to wall suction. NPO for possible cath today. Denies nausea. Voiding in urinal. CHG bath given.
--- NOTE | 2024-09-08 14:07 | CM ---
CM reviewed pt with IMU nursing
Pt with cardiac event and transferred to ICU
Plan for cath and remains with chest tube
Prior therapy notes indicated VN vs no needs
CM will continue to follow for dc planning
Discharge Disposition- anticipate home, follow for needs
[2024-09-08] MEDS: PULMOZYME INTRAPLEUR ×4 (16:54→18:26)
[2024-09-08] MEDS: CATHFLO/ACTIVASE INTRAPLEUR ×4 (16:54→18:26)
[2024-09-08] MEDS: NSS INTRAPLEUR ×2 (16:54→18:26)
[2024-09-08] MEDS: ZAROXOLYN 2.5 MG PO (16:55)
--- NOTE | 2024-09-08 16:56 | ITS.CL.CATH ---
Experiential Therapist - Catheterization
Cardiac Catheterization
Procedure Report:
LEFT HEART CATHETERIZATION
Date of Procedure: September 08, 2024
Referring: Dr. Gerber Morales
PROCEDURES:
1. Left heart catheterization, coronary angiogram.
2. Ultrasound-guided access
INDICATION: New cardiomyopathy with LVEF of 40% with episode of sustained monomorphic ventricular tachycardia, negative troponins
ACCESS: Right ulnar artery, 6 Yoruba sheath, under ultrasound guidance. Right radial artery was extremely small in caliber under ultrasound.
HEMODYNAMICS : (mmHg)
AO (s/d) : 91/58
LV (s/d) : 94/9
LVEDP : 13
CORONARY FINDINGS
DOMINANCE: Right
LEFT MAIN: The left main artery is a large-caliber vessel which gives rise to the left anterior descending artery and the left circumflex artery. There is minimal luminal irregularities.
LEFT ANTERIOR DESCENDING: The left anterior descending artery is a medium to large caliber vessel which gives off a high rising diagonal as it courses through the anterior interventricular groove and wraps around the apex. There is a mid LAD
myocardial bridge noted but otherwise no obstructive coronary artery disease.
CIRCUMFLEX: The left circumflex artery is a medium caliber vessel which gives rise to 1 major obtuse marginal branch. There is minimal luminal irregularities.
RIGHT CORONARY ARTERY: The right coronary artery is a large-caliber, dominant vessel which gives rise to the right posterior descending artery and the right posterolateral system. There is minimal luminal irregularities.
SEDATION: 34 minutes of procedural sedation was utilized. An independent adjunct faculty for medical terminology was present to assist with and help manage the patient's level of consciousness and physiologic status.
RADIATION SUMMARY: Fluoro Time (min): 2.9, Dose (mGy): 303.82, DAP (Gy.cm2) : 21.0
Closure Device: Vascular band over right radial artery, 10 cc of air.
CONCLUSIONS
1. No obstructive coronary artery disease.
2. Mid LAD myocardial bridge is present.
3. Near normal LVEDP at 13 mmHg.
RECOMMENDATIONS
1. Wean radial band per protocol.
2. Resume IV heparin drip without a bolus in 4 hours in the setting of a mechanical mitral valve prosthesis with close monitoring of the right radial access site.
3. Goal-directed medical therapy for new nonischemic cardiomyopathy.
4. Discussion with electrophysiology in regards to management of ventricular arrhythmia.
Copy to: Gerber Morales.
Latia Dickson MD, FACC, [facility]
[2024-09-08] MEDS: ProAmatine 5 MG PO (17:07)
--- NOTE | 2024-09-08 17:22 | PN.CDI ---
CDI
- -
CDI:
Physician Documentation Request
Admit Date: 09/03/24 15:26
Dear Doctor Mercedez,
Please review the following and provide your response in the progress notes.
Clinical Indicators:
Pt admitted with CHFrEF exacerbation/Acte on Chronic hypercapnic/Hypoxic Respiratory failure / on IV Lasix
Sodium labs are as below
09/06/24 09/07/24 09/08/24
05:14 05:44 05:19
Sodium 134 L 134 L 134 L
09/08/24
10:56
Sodium 133 L
Based on the above, could you clarify in the progress notes, the appropriate diagnosis, if significant, that supports the above abnormalities and additional evaluation, monitoring and/or treatment rendered:
Hyponatremia
Abnormal lab value of clinical insignificance
Other
Use of terms such as suspected, likely, concern for, or probable (associated with a specific diagnosis that is being evaluated, monitored, or treated as if it exists) are acceptable and can be coded in the inpatient setting, when documented at the
time of discharge.
Thank you,
Malika Kinney RN
CDI Specialist
[place] [facility]
Please use your independent medical judgment in providing your response.
--- NOTE | 2024-09-08 17:50 | PTCARENOTE ---
Pt back from biological lab technician at 1540. Right TR band intact. Denies chest pain or SOB. Afib with BBB. BP 80s/60s. Midodrine given. BP improved to 100s/70s therefore Lasix given per order. Pt ate 100% of meal. Amio gtt infusing per order. Heparin on
hold per order. To restart at 1930. Awaiting MD to instill Alteplase and Dornase into chest tube. All other assessments unchanged.
--- NOTE | 2024-09-08 18:02 | W.SUR.POST ---
Surgical Immediate Post Op
Note
tPA/dornase chest tube instillation procedure: Session #3 of 6
Date of procedure: 09/08/2024
Performed by: Dr. Sherwood
Medications used: Alteplase 10mg, dornase 5mg
Procedure details: After verbal consent obtained, patient was positioned into recumbent position so that I could access the chest tube. Chest tube was clamped, and sterile technique was employed including: hand washing, sterile gloves, mask and
gown. Chest tube tubing was disconnected so that I could access opening, and normal saline 0.9% was flushed into chest tube without resistance. 10mg of tPA and 5mg of dornase were instilled without incident, and flushed with 10cc of NS 0.9% after
each instillation. Alcohol wipes were used to wipe down the catheter tips and the chest tube tubing site before and after each instillation to maximize sterility. Chest tube was then clamped and is to remain off suction for 90-120 minutes, at
which point the chest tube should be unclamped and then placed back onto suction at -[id number] (unless specified otherwise by provider). Bedside RN assisted with procedure. Patient tolerated procedure without any immediate complications, and I
answered all of his questions.
[2024-09-08] MEDS: VALTREX 1000 MG PO (20:08)
[2024-09-08] MEDS: CRESTOR 5 MG PO (20:08)
[2024-09-08] MEDS: AFRIN NASAL SPRAY 30 SPRAYS NASAL (20:09)
[2024-09-08 20:22] LABS: Blood Urea Nitrogen 24 mg/dl (9-20); Calcium 9.1 mg/dl (8.4-10.2); Chloride 77 mmol/L (98-107); Estimated Creatinine Clearance 83 ml/min; Glucose 197 mg/dl (70-99); Magnesium 1.7 mg/dl (1.6-2.3); Potassium 3.8 mmol/L (3.5-5.1); Sodium 133 mmol/L (135-145); Troponin I 0.012 ng/ml; eGFR > 60.00
[2024-09-08] MEDS: MORPHINE SULFATE 2 MG IV (20:36)
[2024-09-08 20:50] LABS: Carbon Dioxide 40 mmol/L (22-30)
[2024-09-08] MEDS: COUMADIN 5 MG PO (20:53)
--- NOTE | 2024-09-08 21:04 | PTCARENOTE ---
chest tube unclamped and placed on suction -40 at 2030 .immediate bloody output - rt Tr band removed- ax3 afib with wide bbb- amio gtt infusing- hep gtt restarted at 1930. psych arnp restarted Coumadin sats 98 on 5 liters. lungs with scattered crackles
bilaterally. voids urine in urinal- no bm for a few days- miralax and senna given- pt currently resting comfortable in bed- plan is to placed in bipap at 2200- next ptt at 0130
[2024-09-08 21:31] LABS: Glucose - Point of Care 130 mg/dl (70-99)
[2024-09-09] VITALS (27 sets, daily range): BP systolic 90–108; BP diastolic 50–81; PULSE 2–91; O2SAT 92; BMI 28.5
[2024-09-09 02:02] LABS: APTT 66.9 Sec (23.4-35.0)
[2024-09-09 02:05] LABS: Troponin I 0.013 ng/ml
[2024-09-09 04:39] LABS: Hematocrit 35.9 % (39.0-52.0); Hemoglobin 11.8 g/dL (13.0-18.0); Mean Corp Hgb Conc. 32.9 g/dL (33.0-37.0); Mean Corpuscular Hgb 28.1 pg (27.0-31.0); Mean Corpuscular Volume 85.5 fL (80.0-94.0); Mean Platelet Volume 8.9 fL (7.4-10.4); Platelet Count 286 10^3/uL (130-400); Red Cell Dist. Width 15.3 % (11.5-14.5); White Blood Cell Count 8.3 10^3/uL (4.8-10.8)
[2024-09-09 04:49] LABS: INR 1.95; PT 22.4 Sec (11.4-14.6)
[2024-09-09 05:05] LABS: Blood Urea Nitrogen 25 mg/dl (9-20); Chloride 76 mmol/L (98-107); Estimated Creatinine Clearance 75 ml/min; Glucose 145 mg/dl (70-99); Magnesium 1.7 mg/dl (1.6-2.3); Potassium 3.3 mmol/L (3.5-5.1); Sodium 134 mmol/L (135-145); eGFR > 60.00
--- NOTE | 2024-09-09 05:22 | PTCARENOTE ---
mag and k being repleted - see mar-
[2024-09-09 05:28] LABS: Carbon Dioxide 43 mmol/L (22-30)
--- NOTE | 2024-09-09 05:30 | PTCARENOTE ---
chest tube with 170 out this shift
[2024-09-09] MEDS: MAGNESIUM SULFATE 100 IV (05:56)
[2024-09-09] MEDS: KCL 40 MEQ PO (05:57)
[2024-09-09] MEDS: XOPENEX 1.25 MG INHALANT SOLUTION INH ×3 (07:20→19:27)
[2024-09-09] MEDS: ATROVENT NEBULES 0.5 MG INH ×3 (07:21→19:27)
[2024-09-09] MEDS: PULMICORT 0.5 MG INH ×2 (07:21→19:26)
[2024-09-09 07:49] LABS: Glucose - Point of Care 137 mg/dl (70-99)
[2024-09-09] MEDS: NOVOLOG FLEXPEN-LOW RESISTANCE SC ×3 (08:07→16:56)
[2024-09-09] MEDS: TOPROL XL PO ×3 (08:09→21:47)
--- NOTE | 2024-09-09 08:10 | W.PN.HOSP.TC ---
Today's Communication/Plan
-
see A/P
Assessment / Plan
Assessment / Plan
A/P:
# acute on chronic hypercapnic hypoxemic respiratory failure, multiple etiologies including acute on chronic systolic CHF exacerbation and acute COPD exacerbation (less likely), both possibly affected by chronically elevated right hemidiaphragm,
possible pleural effusion
off BiPAP during the day, back on at night
Cont O2 support at 8L NC and wean as tolerated
repeat ECHO with severely dilated right atrium and dilated right ventricle EF 40%,
cont IV Lasix 80 BID with metolazone 2.5 mg daily with hold parameter, follow I/Os, daily weights
R sided chest tube placed due to loculated effusion
thora labs reviewed- exudative fluid
Follow pleural fluid cultures and cytopathology
Cont empiric antibiotics Ceftriaxone/azithromycin for right-sided empyema
s/p tPA chest tube instillation procedure 09/07 and plan for total of 6 doses; daily CXR
Continue nocturnal BiPAP and resume CPAP upon discharge; he should discuss transitioning to BiPAP with his private edge sawyer
Pulm on board
Card on board
# Episode of VT with spontaneous conversion 09/08
cont amiodarone drip
cardiac cath 09/08: No obstructive coronary artery disease. Mid LAD myocardial bridge is present.
Card on board
# chronic hypercapnic hypoxemic respiratory failure
# oxygen dependent COPD with compensated metabolic alkalosis
baseline on 4-5L NC, currently on 4L NC
cont nebs, MDIs
no wheezing, hold on systemic steroids
consider diamox if alkalosis worsens, pt likely has minimal reserve with COPD and elevated right hemidiaphragm
apprec pulm
# bilateral LE edema with increased abdominal girth and weight gain
BL US LE neg for DVT, and no ascites on US
# Paroxysmal atrial fibrillation on chronic Coumadin therapy
INR was supratherapeutic, resolved
heparin bridging
daily INR while on Coumadin, Goal INR 2.5-3.5.
cont metoprolol and verapamil, both with holding parameters
# Severe MR s/p MV repair via mini thoracotomy 10/2013 at [facility] with mechanical valve
heparin bridging
daily INR while on Coumadin, Goal INR 2.5-3.5.
cont asa, statin, metoprolol
# Anxiety
Continue sertraline
# Obstructive sleep apnea on CPAP
# Hypokalemia
replete K
DVT prophylaxis, heparin bridging
CODE STATUS-- full code
DW Type Cutter
DW RN
Anticipated Discharge: > 48 hours
Subjective/Interval History
-
Date of Service: September 09, 2024
Objective Data
-
Labs:
Laboratory Results
09/08/24 09/09/24 09/09/24
19:46 01:28 04:25
WBC 8.3
Hgb 11.8 L
Hct 35.9 L
Plt Count 286
PT 22.4 H
INR 1.95
APTT 66.9 H
Sodium 133 L 134 L
Potassium 3.8 3.3 L
Chloride 77 L 76 L
Carbon Dioxide 40 H 43 H
BUN 24 H 25 H
Creatinine 0.9 1.0
Glucose 197 H 145 H
Calcium 9.1 9.0
09/09/24
08:15
WBC
Hgb
Hct
Plt Count
PT
INR
APTT Pending
Sodium
Potassium
Chloride
Carbon Dioxide
BUN
Creatinine
Glucose
Calcium
Vital Signs:
Vital Signs
Temp Pulse Resp BP Pulse Ox
36.4 C 97 16 90/76 75
09/09/24 03:48 09/09/24 06:16 09/09/24 06:16 09/09/24 06:16 09/09/24 06:16
I&O
09/08/24 09/09/24 09/10/24
06:59 06:59 06:59
Intake Total 660 / 660 1354.3 / 1354.3
Output Total 3675 / 3675 2625 / 2625
Balance -3015 / -3015 -1270.7 / -1270.7
Review of Systems
-
All other systems: Reviewed and negative
Physical Exam
-
General: Well Developed, Well Nourished, Respiratory Distress (chronic) and Conversant
HEENT: Normocephalic, Atraumatic and Oxygen (5L NC)
Respiratory: Non Labored Respirations and Chest Tubes (R side ); Negative Accessory Resp Muscle Use
Cardiac: S1/S2 and Irregular Rhythm
GI: Soft, Nontender and Normal Bowel Sounds
Musculoskeletal: No Clubbing, No Cyanosis, Edema, Right Lower Extrem and Edema, Left Lower Extrem
Neuro: Awake and Alert
Psych: Calm and Intact Judgement/Insight
Data Reviewed
-
Diagnostic Radiology: Report Reviewed by me
Medical Tests (Nuc Med, Echo etc): Report Reviewed by me (cath)
Labs: Labs Reviewed by me
[2024-09-09] MEDS: LASIX 40 MG IV ×2 (08:24→15:27)
[2024-09-09] MEDS: ASPIR LOW (ENTERIC COATED) 81 MG PO (08:24)
[2024-09-09] MEDS: ZOLOFT 100 MG PO (08:24)
[2024-09-09] MEDS: VIBRAMYCIN 100 MG PO ×2 (08:24→21:40)
[2024-09-09] MEDS: NSS (PRESERVATIVE FREE) 10 ML IV (08:25)
[2024-09-09] MEDS: PROTONIX IV 40 MG IV (08:25)
[2024-09-09] MEDS: AFRIN NASAL SPRAY 1 SPRAYS NASAL (08:27)
[2024-09-09 08:54] LABS: APTT 78.4 Sec (23.4-35.0)
--- NOTE | 2024-09-09 09:05 | W.PN.CARDCBS ---
Today's Communication / Plan
-
No recurrent VT.
Transition IV amiodarone to amiodarone 200 mg twice daily to help suppress vent ventricular tachycardia.
Cath reviewed with pt, no obstructive CAD.
Limited echo with EF 35-40% similar to recent echo earlier this month.
In light of his episode of symptomatic VT, discussed consideration for ICD prior to discharge. Discussed with the EP, okay to place ICD with near therapeutic INR. Transition off heparin once INR in the goal range.
Persistent atrial fibrillation. Continue Toprol.
Coumadin resumed for atrial fibrillation and history of mitral valve replacement.
Continue IV lasix and metolazone. Weight down over 30 lbs this admit. Dry wt unclear. Creat stable at 1.
Cont R chest tube care.
On chronic O2 as OP.
Impression / Plan
-
.
Primary Box Chipper: Dr. Saalzar
Impression:
Presentation with SOB, LE edema
Acute hypoxic respiratory failure, requiring BIPAP in ER
Acute on chronic HFrEF
R pleural effusion s/p right CT placement
s/p Ventricular Tachycardia episode in hospital with unresponsiveness September 08, 2024
PAF
History of AVNRT
Severe MR
s/p MV repair via mini thoracotomy 10/2013 at [facility]
Previously dehisced mitral valve ring status post [facility] Simone mechanical mitral valve replacement at [facility] in 2013 with redo sternotomy
Paravalvular plug placed at [facility] 07/2016 due to symptomatic worsening paravalvular leak
Chronic coumadin therapy, managed by [facility]
COPD, on 4L NC home O2
HLD
JENNIFER on CPAP
PVCs
Anxiety
ECHO 04/15/23: EF 45 to 50%, mild concentric LVH, stage II diastolic dysfunction, status post mechanical mitral valve prosthesis with peak/mean gradients 19/9 mmHg, no MR, mild to moderate AR, mild TR, PAP 49 mmHg, dilated aorta measuring 4.1 cm.
Echo 09/03/24: LVEF 40%, moderate LVH, dilated RV with reduced RV function, mechanical mitral valve with mean gradient of 5 and no MR. PA pressure 60-65. Ascending aorta 4.3 cm
Echo 09/08/2024: Fair image quality. Left ventricle is dilated. Moderately reduced left ventricular systolic function. Global hypokinesis. Left ventricular ejection fraction is 35-40%.
Enlarged right ventricular size. Compared to prior echo from Sep 03 2024, which was reviewed, findings are similar
Left heart cath Sep 08 2024:
HEMODYNAMICS : (mmHg)
AO (s/d) : 91/58
LV (s/d) : 94/9
LVEDP : 13
CORONARY FINDINGS
DOMINANCE: Right
LEFT MAIN: The left main artery is a large-caliber vessel which gives rise to the left anterior descending artery and the left circumflex artery. There is minimal luminal irregularities.
LEFT ANTERIOR DESCENDING: The left anterior descending artery is a medium to large caliber vessel which gives off a high rising diagonal as it courses through the anterior interventricular groove and wraps around the apex. There is a mid LAD
myocardial bridge noted but otherwise no obstructive coronary artery disease.
CIRCUMFLEX: The left circumflex artery is a medium caliber vessel which gives rise to 1 major obtuse marginal branch. There is minimal luminal irregularities.
RIGHT CORONARY ARTERY: The right coronary artery is a large-caliber, dominant vessel which gives rise to the right posterior descending artery and the right posterolateral system. There is minimal luminal irregularities.
CONCLUSIONS
1. No obstructive coronary artery disease.
2. Mid LAD myocardial bridge is present.
3. Near normal LVEDP at 13 mmHg.
Plan:
No recurrent VT.
Transition IV amiodarone to amiodarone 200 mg twice daily to help suppress vent ventricular tachycardia.
Cath reviewed with pt, no obstructive CAD.
Limited echo with EF 35-40% similar to recent echo earlier this month.
In light of his episode of symptomatic VT, discussed consideration for ICD prior to discharge. Discussed with the EP, okay to place ICD with near therapeutic INR. Transition off heparin once INR in the goal range.
Persistent atrial fibrillation. Continue Toprol.
Coumadin resumed for atrial fibrillation and history of mitral valve replacement.
Continue IV lasix and metolazone. Weight down over 30 lbs this admit. Dry wt unclear. Creat stable at 1.
Cont R chest tube care.
On chronic O2 as OP.
Discussed with nursing
Progress Note - Box Chipper
Subjective
Date of Service: September 09, 2024
Patient seen and examined. No chest pain or shortness of breath.
Objective
Labs:
09/09/24 04:25
09/09/24 04:25
Labs
Hgb 11.8 g/dL (13.0-18.0) L 09/09/24 04:25
Hct 35.9 % (39.0-52.0) L 09/09/24 04:25
Plt Count 286 10^3/uL (130-400) 09/09/24 04:25
PT 22.4 Sec (11.4-14.6) H 09/09/24 04:25
INR 1.95 09/09/24 04:25
APTT 78.4 Sec (23.4-35.0) H 09/09/24 08:33
Sodium 134 mmol/L (135-145) L 09/09/24 04:25
Potassium 3.3 mmol/L (3.5-5.1) L 09/09/24 04:25
BUN 25 mg/dl (9-20) H 09/09/24 04:25
Creatinine 1.0 mg/dL (0.7-1.3) 09/09/24 04:25
Glucose 145 mg/dl (70-99) H 09/09/24 04:25
Troponins
09/08/24 09/08/24 09/08/24
09:27 09:45 19:46
Troponin I 0.014 Cancelled 0.012
09/09/24
01:28
Troponin I 0.013
Vital Signs and I&O:
Vital Signs
Temp Pulse Resp BP Pulse Ox
98.1 F 97 16 90/76 75
09/09/24 08:13 09/09/24 06:16 09/09/24 06:16 09/09/24 06:16 09/09/24 06:16
Vital Signs
Temp Pulse Resp BP Pulse Ox
98.1 F 97 16 90/76 75
09/09/24 08:13 09/09/24 06:16 09/09/24 06:16 09/09/24 06:16 09/09/24 06:16
Intake & Output
09/07/24 09/08/24 09/09/24 09/10/24
06:59 06:59 06:59 06:59
Intake Total 660 / 660 660 / 660 1354.3 / 1354.3
Output Total 2810 / 2810 3675 / 3675 2625 / 2625
Balance -2150 / -2150 -3015 / -3015 -1270.7 / -1270.7
Physical Exam
Physical Exam
General: No acute distress, AAOX3
Neck: Negative JVD
Heart: Irregularly irregular, Negative S3 positive S1/S2, Negative S4, No murmur
Thorax: Right chest tube in place
Lungs: CTA b/l, negative wheezes/rales/rhonchi
Abd: Positive BS, NT/ND, neg rebound/rigidity/guarding
Ext: Negative cyanosis/clubbing/edema
Neuro: nonfocal
--- NOTE | 2024-09-09 10:33 | W.PN.PUL3 ---
Today's Communication / Plan
-
Complete antibiotics tomorrow
Repeat chest x-ray in the morning
Follow chest tube output
Depending on response of today's instillation, character of the chest tube output will decide whether further instillation will be necessary.
May need to opt to discontinue chest tube in the next 24 hours depending on clinical situation.
Assessment
-
64-year-old man with complicated cardiac history, history of mechanical valve prosthesis, on Coumadin, heart failure, COPD on oxygen therapy, admitted with shortness of breath, weight gain and worsening hypoxemia with increased work of breathing.
Not bronchospastic on exam. Abnormal CT chest with right hemidiaphragm elevation and pleural effusion. We were consulted for evaluation of this
.
Impression:
Acute on chronic hypoxemic respiratory failure up to 8 L of nasal cannula required noninvasive mechanical ventilation for increased work of breathing.
Baseline 4 L nasal cannula
Multiloculated right pleural effusion suspected to be parapneumonic s/p chest tube (placed by IR on 09/06/2024 - exudative effusion; LDH: 181))
Acute on chronic heart failure with reduced ejection/increased weight: proBNP 1170 on 09/03/2024
CT chest with bilateral groundglass opacities: Suggestive of pulmonary edema with right sided small-moderate sized pleural effusion
Echocardiogram 04/15/2023 LVEF 45 to 50%, stage II diastolic dysfunction
Echocardiogram 09/03/2024: Reviewed: Dilated left ventricle with moderately reduced left ventricular systolic function. But 40%. Moderate concentric LVH. Dilated right ventricular size with reduced RV function. Severely dilated right atrium.
Mechanical valve prosthesis no mitral regurgitation seen.
CT chest abnormal: Right hemidiaphragm elevation/right sided pleural effusion.
Nonsustained VT now on amiodarone infusion
Conditions present prior admission:
Severe MR-history of mitral valve prolapse-status post valve repair 10/2013/previously dehisced mitral valve ring status post [employer] Simone mechanical valve replacement [facility] in 2013, paravalvular plug placed at [facility]
07/2016 due to paravalvular leak.
History of AVNRT
Paroxysmal atrial fibrillation on anticoagulation-Coumadin
GERD
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
Obstructive sleep apnea on CPAP therapy
COPD on 4 L of oxygen-unknown PFTs. Does not follow-up locally. No PFT available
On aformoterol/budesonide
Patient is a never smoker
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
Essential hypertension
Hyperlipidemia
Assessment and plan:
Clinical picture consistent with heart failure-increased proBNP, groundglass opacities on CAT scan, weight gain.
Atrial fibrillation is rate controlled
Developed nonsustained-VT this morning with unresponsiveness with echo showing global hypokinesis and no new echo findings compared to prior TTE on 09/03/2024. Left heart cath performed - no obstructive CAD with mild LAD myocardial bridge and near
normal LVEDP at 13 mmHg --> continue amiodarone per cardiology
Echocardiogram noted.
Continue IV diuretics with metolazone and maintain net neutral to slightly net negative fluid balance as LVEDP was 13mmHg on [facility] from today (09/08/2024)
Currently on a heparin drip-follow PTT
Cardiology following.
Coumadin restarted-trend INR
-
Continue oxygen supplementation, wean down as able.
Chronic hypercapnic respiratory failure,ABG 09/05/2024: 7.45/77/59 (compensated)
Compensatory metabolic alkalosis
Hypercapnia likely due to restriction from right hemidiaphragm paralysis. Diaphragm is paralyzed s/p multiple cardiac surgeries. At least since 2014
Does not follow-up locally but has a CPAP at night due to diagnosis of obstructive sleep apnea. Hypercapnia likely from diaphragm elevation and pulm restriction.
Can continue with BiPAP 12/5 while in the hospital. He feels better with it.
-
Abnormal CT chest: Chronic right hemidiaphragm elevation since 2014 or longer.
Right pleural effusion is multiloculated -suspect chronic given lymphocytic predominant on pleural fluid 82%. White blood cells 52 and LDH 181. No significant inflammation noted.
- Given concern for infectious process, he underwent R-sided chest tube via IR on 09/06/2024; Continue ABx with rocephin, and changed zithromax to doxy given prolonged QTc (QTc: 591ms on 09/07/2024);
cytology from pleural fluid negative for malignant cells.
Culture negative
Given negative cultures, afebrile, no leukocytosis, no increased white blood cells on pleural fluid or increased LDH-would complete only 5 days of antibiotics. Completed on 09/10/2024.
-
Status post tPA/dornase into chest tube as drainage has significantly slowed down as of 09/08/2024.
With lack of increased white blood cells/increased LDH/no significant signs of inflammation unclear if this will be affected.
Today 09/09/2024: Fluid appears more bloody. Discussed with nursing. Will instill only dornase alpha.
Hold off on further instillation, patient is currently on a heparin drip.
Follow chest tube output
Repeat chest x-ray tomorrow morning
-
Continue diuresis per cardiology
Coumadin resumed
-
Patient has nonspecific mediastinal lymphadenopathy, enlargement may be due to volume overload.
Will need repeat CT scan with IV contrast in 3 months.
Can follow-up with his manager [employer]. Patient follow-up with Dr. Echevarria from [facility].
-
History of COPD: On chronic oxygen 4 to 5 L. Never smoker. Prior exposure to fumes at a worksite
No evidence for acute exacerbation.
Maintain SpO2 88-95%
Continue Pulmicort (takes at home)
Replaced Afromoterol with duoneb TID --> change to xopenex and atrovent now that he had an arrythmia this AM; continue budesonide; resume home nebulized inhalers upon discharge
-
DVT prophylaxis-on coumadin; goal INR 2-3
-
Will follow

Data reviewed:
Chest US 09/06/2024: Multiloculated right pleural effusion.
Lower extremity Doppler 09/04/2024: No evidence for DVT
-
Abdominal ultrasound 09/04/2024: Small amount of MAT hepatic free fluid. No ascites.
-
CT chest 09/03/2024: Reviewed,
1. Small to moderate right pleural effusion.
2. Groundglass opacities in both lungs, greatest in the right upper lobe, suspicious for mild edema versus hypoventilatory changes.
3. Elevated right hemidiaphragm.
4. Cardiomegaly.
5. Mild mediastinal lymphadenopathy, nonspecific but probably more likely to be reactive.
6. Mild upper abdominal ascites.
Total time spent today was 52 minutes for this encounter. Time includes reviewing laboratory test/imaging results, reviewing pertinent medical records, obtaining and reviewing medical history, performing an appropriate exam, ordering medications,
tests and procedures. Time also includes documentation of this encounter, coordinating patient care and communicating with other healthcare professionals. Total time does not include separately billed tests performed on this date of service.
Subjective Data
-
Date of Service:
Date of Service: September 09, 2024
Chief Complaint: Pulmonary Follow Up (Pleural effusion/hypoxemic respiratory failure)
Subjective:
Denies any new pulmonary complaints
Denies significant chest pain
Denies coughing
Denies sputum production
Review of Systems
General: Fever (n)
Cardiopulmonary: Dyspnea on Exertion (Improved since admission after diuretics)
GI: Abdominal Pain (n)
Neuro: Headache (n)
Objective Data
Data Reviewed
Vital Signs / I&O / Oxygen:
Vital Signs
Temp Pulse Resp BP Pulse Ox
98.1 F 97 16 90/76 75
09/09/24 08:13 09/09/24 06:16 09/09/24 06:16 09/09/24 06:16 09/09/24 06:16
Intake and Output
09/08/24 09/09/24 09/10/24
06:59 06:59 06:59
Intake Total 660 / 660 1354.3 / 1527.0 228.1 / 228.1
Output Total 3675 / 3675 2625 / 2625
Balance -3015 / -3015 -1270.7 / -1098.0 228.1 / 228.1
SaO2 75
Nasal Cannula flow liters per 5
minute
Physical Exam
General: Respiratory Distress (negative), Comfortable, Chills (negative), Sweats (negative) and Good Appetite
HEENT: Normocephalic, Anicteric and Moist Mucous Membranes
Cardiovascular: Irregular Rhythm and Peripheral Edema (+1 pitting lower extremity edema bilaterally)
Respiratory: Wheeze (negative), Crackles (right base), Rhonchi (negative), Non-Labored Respirations, Chest Tube (Bloody output, no airleak) and Other (Decreased breath sounds in the right)
GI: Soft, Non Distended, Non Tender and Normal Bowel Sounds
Neurology: AO x 3 and Tremors (negative)
Skin: Warm, Dry, Cyanosis (negative) and Jaundice (negative)
Labs/Micro/Reports
Lab Data
09/09/24 04:25
09/09/24 04:25
Laboratory Results
09/08/24 09/08/24 09/09/24
10:56 12:00 01:28
PT 21.7 H Cancelled
INR 1.87 Cancelled
APTT 38.1 H 66.9 H
09/09/24 09/09/24
04:25 08:33
PT 22.4 H
INR 1.95
APTT 78.4 H
Microbiology
09/06/24 14:34 Pleural Fluid Body Fluid Culture - Preliminary
No Growth After 48 Hours
09/06/24 14:34 Pleural Fluid Gram Stain - Preliminary
--- NOTE | 2024-09-09 10:42 | W.IMMPOSTOP ---
Surgical Immed Post Op Note
-
Primary Surgeon:
Assisting Surgeon:
Pre-op Diagnosis:
Post-op Diagnosis:
Procedure Performed: tPA/dornase alpha chest tube instillation: Sessions 02/27
Anesthesia Type: None
Specimen / Cultures:
Estimated Blood Loss:
Complications:
Operative Findings:
tPA/dornase chest tube instillation procedure: Session #4 of 6
Date of procedure: 09/09/2024
Performed by: Dr. Bentley Hodge
Medications used: dornase 5mg
Procedure details:
After verbal consent obtained, patient was positioned into recumbent position so that I could access the chest tube. Dornase alpha only was instilled as a chest tube output was bloody and patient is on heparin. Chest tube was clamped, and sterile
technique was employed including: hand washing, sterile gloves, mask and gown. Chest tube tubing was disconnected so that I could access opening, and normal saline 0.9% was flushed into chest tube without resistance. 10mg of tPA and 5mg of dornase
were instilled without incident, and flushed with 10cc of NS 0.9% after each instillation. Alcohol wipes were used to wipe down the catheter tips and the chest tube tubing site before and after each instillation to maximize sterility. Chest tube
was then clamped and is to remain off suction for 90-120 minutes, at which point the chest tube should be unclamped and then placed back onto suction at [id number] (unless specified otherwise by provider). Bedside RN assisted with procedure. Patient
tolerated procedure without any immediate complications, and I answered all of his questions.
[2024-09-09] MEDS: CATHFLO/ACTIVASE INTRAPLEUR ×4 (11:39→16:57)
[2024-09-09] MEDS: PULMOZYME INTRAPLEUR ×4 (11:41→16:58)
[2024-09-09] MEDS: NSS INTRAPLEUR ×2 (11:41→16:57)
[2024-09-09 12:01] LABS: Glucose - Point of Care 138 mg/dl (70-99)
[2024-09-09] MEDS: CORDARONE 518 MG IV (12:25)
[2024-09-09] MEDS: ROCEPHIN 2000 MG IV (12:25)
[2024-09-09] MEDS: STERILE WATER FOR INJECTION 20 ML IV (12:26)
[2024-09-09] MEDS: KCL 20 MEQ PO (12:26)
--- NOTE | 2024-09-09 13:53 | PTCARENOTE ---
Pt OOB in chair x2 hrs. Ambulated with PT/OT. Now in bed for PICC placement. SpO2 95% on 5L NC. Chest tube to wall suction with bloody drainage. Clamped for 2hrs post med instillation per order. Remains on Heparin and Amio gtts. All other
assessments unchanged.
--- NOTE | 2024-09-09 14:42 | CM ---
CM following re: discharge planning.
Discussed in Rounds, reviewed pt's chart, met with pt. Chest tube instillation procedure performed today, pt requires 4L NC of O2, nocturnal Bi-pap at night, continue supportive care.
PT and OT evaluations noted - home health recommended. Pt is aware, expressed his agreement. A lsit of VN vendors provided. pt preferred [facility]. A referral to [facility] made.
D/c plan: home with [facility] and family support.
CM will follow with discharge plan updates as hospitalization progresses
[2024-09-09] MEDS: ZAROXOLYN 2.5 MG PO (15:08)
[2024-09-09] MEDS: HEPARIN 25000 UNITS/250 ML IV (15:31)
[2024-09-09 15:55] LABS: APTT 65.2 Sec (23.4-35.0)
--- NOTE | 2024-09-09 17:00 | PTCARENOTE ---
No output from chest tube since unclamped. chest tube to wall suction. Pt repositioned in bed. Dr Hodge notified. No new orders at this time. CXR for am.
[2024-09-09 17:04] LABS: Glucose - Point of Care 115 mg/dl (70-99)
[2024-09-09] MEDS: COUMADIN 5 MG PO (17:33)
[2024-09-09 18:10] LABS: Glucose - Point of Care 150 mg/dl (70-99)
--- NOTE | 2024-09-09 18:30 | PTCARENOTE ---
Received patient on transfer from ICU via bed with O2 4L in use; POx 98%. CANAL DRIVER administered evening meds prior to arrival and marked off chest tube drainage. Patient states he feels comfortable. Remains afib with BBB.
[2024-09-09] MEDS: VALTREX 1000 MG PO (21:29)
[2024-09-09] MEDS: CRESTOR 5 MG PO (21:29)
[2024-09-09 21:36] LABS: Glucose - Point of Care 136 mg/dl (70-99)
[2024-09-09] MEDS: PACERONE 200 MG PO (21:40)
[2024-09-09] MEDS: ProAmatine 5 MG PO (21:41)
[2024-09-09] MEDS: AFRIN NASAL SPRAY 30 SPRAYS NASAL (21:42)
[2024-09-09 23:18] LABS: APTT 103.3 Sec (23.4-35.0)
[2024-09-09] MEDS: MORPHINE SULFATE 2 MG IV (23:49)
[2024-09-10] VITALS (23 sets, daily range): BP systolic 87–119; BP diastolic 46–93; PULSE 2–103; O2SAT 96; BMI 28.8
--- NOTE | 2024-09-10 00:50 | PTCARENOTE ---
Caring for pt overnight. Cardizem gtt continues to run, PTT was therapeutic. Amio gtt turned off & PO amio given. In Afib, HR 80-110's. Bp's soft, toprol held. Pt oob to chair. CT in place, dressing intact, -40, no drainage so far. Pain 07/13,
morphine given. Breath sounds diminished on R. NO other issues at this time. Will monitor, call [facility]den in reach.
[2024-09-10 06:01] LABS: PT 26.4 Sec (11.4-14.6)
[2024-09-10 06:03] LABS: Hematocrit 35.5 % (39.0-52.0); Hemoglobin 12.1 g/dL (13.0-18.0); Mean Corp Hgb Conc. 34.1 g/dL (33.0-37.0); Mean Corpuscular Hgb 28.7 pg (27.0-31.0); Mean Corpuscular Volume 84.3 fL (80.0-94.0); Mean Platelet Volume 9.5 fL (7.4-10.4); Platelet Count 314 10^3/uL (130-400); Red Blood Cell Count 4.21 10^6/uL (4.70-6.10); Red Cell Dist. Width 15.2 % (11.5-14.5); White Blood Cell Count 8.3 10^3/uL (4.8-10.8)
[2024-09-10 06:19] LABS: Blood Urea Nitrogen 27 mg/dl (9-20); Chloride 73 mmol/L (98-107); Estimated Creatinine Clearance 75 ml/min; Glucose 143 mg/dl (70-99); Magnesium 1.8 mg/dl (1.6-2.3); Potassium 3.4 mmol/L (3.5-5.1); Sodium 129 mmol/L (135-145); eGFR > 60.00
[2024-09-10 06:39] LABS: Carbon Dioxide 41 mmol/L (22-30)
[2024-09-10] MEDS: XOPENEX 1.25 MG INHALANT SOLUTION INH ×3 (07:25→19:19)
[2024-09-10] MEDS: ATROVENT NEBULES 0.5 MG INH ×3 (07:25→19:19)
[2024-09-10] MEDS: PULMICORT 0.5 MG INH ×2 (07:25→19:19)
[2024-09-10 07:47] LABS: Glucose - Point of Care 160 mg/dl (70-99)
[2024-09-10 08:18] LABS: APTT 143.4 Sec (23.4-35.0)
--- NOTE | 2024-09-10 08:23 | W.PN.HOSP.TC ---
Addendum entered and electronically signed by Flory Newsome MD 09/10/24 12:20:
I saw and evaluated the patient. I reviewed the resident�s note and agree with findings and plan as documented in the resident�s note.
Chest tube to be removed today by IR.
Can continue course of IV antibiotics for right-sided empyema, which seems to be chronic.
IV amiodarone has been transitioned to p.o. amiodarone for cardiac arrhythmia.
Plan for ICD in coming week.
Continue heparin drip (of Coumadin currently) prior to procedure
Original Note:
Today's Communication/Plan
-
.
Assessment / Plan
Assessment / Plan
A/P:
# Acute on chronic hypoxemic respiratory failure possibly secondary to below.
# Acute on chronic HFrEF
#Acute COPD exacerbation
# Right sided pleural effusion s/p chest tube placement 09/06.
-Requiring BiPaP at night time.
-On 8L NC, wean as tolerated
-repeat ECHO with severely dilated right atrium and dilated right ventricle EF 40%,
-cont IV Lasix 80 BID with metolazone 2.5 mg daily with holding parameter, follow I/Os, daily weights
-R sided chest tube placed due to loculated effusion
thora labs reviewed- exudative fluid
-Follow pleural fluid cultures and cytopathology
-Cont empiric antibiotics Ceftriaxone/azithromycin for right-sided empyema
-s/p tPA chest tube instillation procedure 09/07 and plan for total of 6 doses;
-Status post tPA/dornase into chest tube as drainage has significantly slowed down.-Pulmonary input appreciated. Plan to discontinue chest tube today.
-Continue nocturnal BiPAP and resume CPAP upon discharge; he should discuss transitioning to BiPAP with his private acid tester
Pulm on board
Card on board, for ICD Friday, 09/13
# Episode of VT with spontaneous conversion 09/08
cont amiodarone drip
cardiac cath 09/08: No obstructive coronary artery disease. Mid LAD myocardial bridge is present.
Card on board
# chronic hypercapnic hypoxemic respiratory failure
# oxygen dependent COPD with compensated metabolic alkalosis
baseline on 4-5L NC, currently on 4L NC
cont nebs, MDIs
no wheezing, hold on systemic steroids
consider diamox if alkalosis worsens, pt likely has minimal reserve with COPD and elevated right hemidiaphragm
apprec pulm
# bilateral LE edema with increased abdominal girth and weight gain
BL US LE neg for DVT, and no ascites on US
# Paroxysmal atrial fibrillation on chronic Coumadin therapy
INR was supratherapeutic, resolved
heparin bridging
cont metoprolol and verapamil, both with holding parameters
# Severe MR s/p MV repair via mini thoracotomy 10/2013 at [facility] with mechanical valve
heparin bridging
daily INR while on Coumadin, Goal INR 2.5-3.5.
cont asa, statin, metoprolol
# Anxiety
Continue sertraline
# Obstructive sleep apnea on CPAP
# Hypokalemia
replete K
DVT prophylaxis, heparin bridging
CODE STATUS-- full code
Anticipated Discharge: > 48 hours
Subjective/Interval History
-
Patient seen and examined at bedside. Reports improvement in shortness of breath. Denies Chest pain, palpitation.
Objective Data
-
Labs:
Laboratory Results
09/09/24 09/10/24 09/10/24
22:54 05:27 06:15
WBC 8.3
Hgb 12.1 L
Hct 35.5 L
Plt Count 314
PT 26.4 H
INR 2.40
APTT 103.3 H 143.4 H Cancelled
Sodium 129 L
Potassium 3.4 L
Chloride 73 L
Carbon Dioxide 41 H
BUN 27 H
Creatinine 1.0
Glucose 143 H
Calcium 9.0
Vital Signs:
Vital Signs
Temp Pulse Resp BP Pulse Ox
98.2 F 88 15 103/52 96
09/10/24 07:10 09/10/24 07:42 09/10/24 07:42 09/10/24 05:02 09/10/24 07:42
I&O
09/09/24 09/10/24 09/11/24
06:59 06:59 06:59
Intake Total 1354.3 / 1527.0 1135.8 / 1135.8
Output Total 2665 / 2665 1600 / 1600 525 / 525
Balance -1310.7 / -1138.0 -464.2 / -464.2 -525 / -525
Review of Systems
-
All other systems: Reviewed and negative (except as documented)
Physical Exam
-
General: No Apparent Distress
Respiratory: Wheezes, Crackles and Decreased Breath Sounds
Cardiac: S1/S2
GI: Soft, Nontender and Nondistended
Musculoskeletal: No Edema
Neuro: AO x 3
[2024-09-10] MEDS: KCL 40 MEQ PO (08:40)
[2024-09-10] MEDS: ASPIR LOW (ENTERIC COATED) 81 MG PO (08:41)
[2024-09-10] MEDS: VIBRAMYCIN 100 MG PO ×2 (08:41→20:23)
[2024-09-10] MEDS: PACERONE 200 MG PO (08:41)
[2024-09-10] MEDS: AFRIN NASAL SPRAY 2 SPRAYS NASAL (08:42)
[2024-09-10] MEDS: NSS (PRESERVATIVE FREE) 10 ML IV (08:42)
[2024-09-10] MEDS: PROTONIX IV 40 MG IV (08:42)
[2024-09-10] MEDS: TOPROL XL 50 MG PO (08:43)
[2024-09-10] MEDS: ZOLOFT 100 MG PO (08:43)
--- NOTE | 2024-09-10 08:55 | W.PN.CARDCBS ---
Addendum entered and electronically signed by Radames Rodrigues DO 09/10/24 16:42:
I saw and examined the patient.
The Repairer And Checker's note was reviewed and I agree with the note.
Comment:
Telemetry demonstrates rate AF 90-120 bpm
Patient resting comfortably without complaint; no further episodes of VT
CT remains in place, management per pulm
-Given CM (EF 35-40%), NYHA II HF, and sustained monomorphic VT without reversible cause (no obstructive CAD), patient to benefit from secondary prevention ICD implantation. With regard to ICD implant, we discussed ICD indications for primary
prevention and secondary prevention patients including 5 year sudden risk. We also discussed implant procedure in detail including an approximate 1:1000 risk of SD/stroke/ and a 1% risk of pneumothorax/tamponade/infection/bleeding. We
discussed the less than 1% risk of wires bending, breaking, or tearing through the lifetime of the device requiring surgery or procedure to fix. We discussed the less than 1% risk of device/lead advisory or recall and requirement for monitoring for
surveillance. We also discussed post procedure implant restrictions including positions to avoid with implant arm for first six weeks after implant as well as driving restrictions. We discussed post implant possibility of inappropriate shocks from
device and programming strategies to minimize this risk. Patient to tentatively undergo procedure Friday.
-Due to mechanical mitral valve, patient on heparin. First dose of Coumadin provided which increased INR from 1.9 to 2.4. With sudden change will monitor and plan for post procedure Coumadin dosing.
-Will follow
Original Note:
Today's Communication / Plan
-
Lasix and metolazone on hold
Continue amiodarone and Toprol. No further VT noted
Continue heparin and hold coumadin for now.
Tentatively for ICD Friday, 09/13
Impression / Plan
-
Primary Precision Assembler: Dr. Salazar
Impression:
Presentation with SOB, LE edema
Acute hypoxic respiratory failure, requiring BIPAP in ER
Acute on chronic HFrEF
R pleural effusion s/p right CT placement
s/p Ventricular Tachycardia episode w/ unresponsiveness 09/08/2024
PAF
History of AVNRT
Severe MR
s/p MV repair via mini thoracotomy 10/2013 at [facility]
Previously dehisced mitral valve ring status post [employer] mechanical mitral valve replacement at [facility] in 2013 with redo sternotomy
Paravalvular plug placed at [facility] 07/2016 due to symptomatic worsening paravalvular leak
Chronic coumadin therapy, managed by [facility]
COPD, on 4L NC home O2
HLD
JENNIFER on CPAP
PVCs
Anxiety
ECHO 04/15/23: EF 45 to 50%, mild concentric LVH, stage II diastolic dysfunction, status post mechanical mitral valve prosthesis with peak/mean gradients 19/9 mmHg, no MR, mild to moderate AR, mild TR, PAP 49 mmHg, dilated aorta measuring 4.1 cm.
Echo 09/03/24: LVEF 40%, moderate LVH, dilated RV with reduced RV function, mechanical mitral valve with mean gradient of 5 and no MR. PA pressure 60-65. Ascending aorta 4.3 cm
Echo 09/08/2024: Fair image quality. Left ventricle is dilated. Moderately reduced left ventricular systolic function. Global hypokinesis. Left ventricular ejection fraction is 35-40%.
Enlarged right ventricular size. Compared to prior echo from Sep 03 2024, which was reviewed, findings are similar
Left heart cath Sep 08 2024:
HEMODYNAMICS : (mmHg)
AO (s/d) : 91/58
LV (s/d) : 94/9
LVEDP : 13
CORONARY FINDINGS
DOMINANCE: Right
LEFT MAIN: The left main artery is a large-caliber vessel which gives rise to the left anterior descending artery and the left circumflex artery. There is minimal luminal irregularities.
LEFT ANTERIOR DESCENDING: The left anterior descending artery is a medium to large caliber vessel which gives off a high rising diagonal as it courses through the anterior interventricular groove and wraps around the apex. There is a mid LAD
myocardial bridge noted but otherwise no obstructive coronary artery disease.
CIRCUMFLEX: The left circumflex artery is a medium caliber vessel which gives rise to 1 major obtuse marginal branch. There is minimal luminal irregularities.
RIGHT CORONARY ARTERY: The right coronary artery is a large-caliber, dominant vessel which gives rise to the right posterior descending artery and the right posterolateral system. There is minimal luminal irregularities.
CONCLUSIONS
1. No obstructive coronary artery disease.
2. Mid LAD myocardial bridge is present.
3. Near normal LVEDP at 13 mmHg.
Plan:
-Presented from [facility] office w/ worsening SOB and hypoxia, requiring BiPAP in ER. Admitted with acute heart failure.
-Diuresed with IV lasix and metolazone. Weight down 32 lbs this admission. Creat stable at 1.0, but BUN up to 27. Lasix and metolazone held 09/10.
-R chest tube in place.
-Episode of VT w/ unresponsiveness 09/08. Started on amio drip and transitioned to amiodarone 200mg BID. No further VT noted on telemetry.
-Echo with stable EF, 35-40%.
-C 09/08 with no obstructive CAD. Plan is for ICD Friday, 09/13.
-Remains in persistent atrial fibrillation on telemetry. HRs somewhat elevated this AM, continue to follow. Continue Toprol 50mg BID and amiodarone 200mg BID.
-Continues on heparin. Given 1 dose of coumadin 09/09. INR this AM 2.4. Goal INR 2.5 to 3.5 w/ h/o mechanical MVR. Will hold Coumadin for now and continue heparin alone given plan for ICD Friday.
-Verapamil stopped due to hypotension. PRN midodrine new this admission.
-K 3.4, agree w/ repletion.
-On chronic O2 as OP.
Progress Note - Precision Assembler
Subjective
Date of Service: September 10, 2024
Feeling well this AM. No SOB. No dizziness, edema improved.
Objective
Labs:
09/10/24 05:27
09/10/24 05:27
Labs
Hgb 12.1 g/dL (13.0-18.0) L 09/10/24 05:27
Hct 35.5 % (39.0-52.0) L 09/10/24 05:27
Plt Count 314 10^3/uL (130-400) 09/10/24 05:27
PT 26.4 Sec (11.4-14.6) H 09/10/24 05:27
INR 2.40 09/10/24 05:27
APTT Cancelled 09/10/24 06:15
Sodium 129 mmol/L (135-145) L 09/10/24 05:27
Potassium 3.4 mmol/L (3.5-5.1) L 09/10/24 05:27
BUN 27 mg/dl (9-20) H 09/10/24 05:27
Creatinine 1.0 mg/dL (0.7-1.3) 09/10/24 05:27
Glucose 143 mg/dl (70-99) H 09/10/24 05:27
Troponins
09/08/24 09/08/24 09/08/24
09:27 09:45 19:46
Troponin I 0.014 Cancelled 0.012
09/09/24
01:28
Troponin I 0.013
Vital Signs and I&O:
Vital Signs
Temp Pulse Resp BP Pulse Ox
98.2 F 98 15 101/73 96
09/10/24 07:10 09/10/24 08:43 09/10/24 07:42 09/10/24 08:43 09/10/24 07:42
Vital Signs
Temp Pulse Resp BP Pulse Ox
98.2 F 98 15 101/73 96
09/10/24 07:10 09/10/24 08:43 09/10/24 07:42 09/10/24 08:43 09/10/24 07:42
Intake & Output
09/08/24 09/09/24 09/10/24 09/11/24
06:59 06:59 06:59 06:59
Intake Total 660 / 660 1354.3 / 1527.0 1135.8 / 1135.8
Output Total 3675 / 3675 2665 / 2665 1600 / 1600 525 / 525
Balance -3015 / -3015 -1310.7 / -1138.0 -464.2 / -464.2 -525 / -525
Physical Exam
Physical Exam
General: No acute distress, awake, alert, oriented x3
Heart: Irregularly irregular, Negative S3 positive S1/S2, Negative S4, No murmur
Thorax: Right chest tube in place
Lungs: CTA b/l, negative wheezes/rales/rhonchi
Ext: Negative cyanosis/clubbing/edema
Neuro: nonfocal
[2024-09-10] MEDS: MORPHINE SULFATE 2 MG IV (09:43)
[2024-09-10] MEDS: NOVOLOG FLEXPEN-LOW RESISTANCE 1 UNITS SC (09:45)
--- NOTE | 2024-09-10 10:46 | PN.IRAD.UPD ---
Update Note - IRAD
- -
Cleaned right sided chest tube with chloraprep and removed bedside. Site dressed with vaseline gauze and an optimfoam dressing.
Luis Pope RT(R)()
--- NOTE | 2024-09-10 11:00 | W.PN.PUL3 ---
Today's Communication / Plan
-
Discussed with interventional radiology, placed a consult for chest tube removal
No additional thrombolytics
Continue cardiac management
For ICD Friday
Continue nebulizers while in the hospital
No indication for systemic corticosteroids
Continue physical therapy
No additional recommendations, signed off.
Continue to follow-up with Dr. Echevarria from pulmonary at [facility]
Assessment
-
64-year-old man with complicated cardiac history, history of mechanical valve prosthesis, on Coumadin, heart failure, COPD on oxygen therapy, admitted with shortness of breath, weight gain and worsening hypoxemia with increased work of breathing.
Not bronchospastic on exam. Abnormal CT chest with right hemidiaphragm elevation and pleural effusion. We were consulted for evaluation of this
.
Impression:
Acute on chronic hypoxemic respiratory failure up to 8 L of nasal cannula required noninvasive mechanical ventilation for increased work of breathing.
Baseline 4 L nasal cannula
Multiloculated right pleural effusion suspected to be parapneumonic s/p chest tube (placed by IR on 09/06/2024 - exudative effusion; LDH: 181))
Acute on chronic heart failure with reduced ejection/increased weight: proBNP 1170 on 09/03/2024
CT chest with bilateral groundglass opacities: Suggestive of pulmonary edema with right sided small-moderate sized pleural effusion
Echocardiogram 04/15/2023 LVEF 45 to 50%, stage II diastolic dysfunction
Echocardiogram 09/03/2024: Reviewed: Dilated left ventricle with moderately reduced left ventricular systolic function. But 40%. Moderate concentric LVH. Dilated right ventricular size with reduced RV function. Severely dilated right atrium.
Mechanical valve prosthesis no mitral regurgitation seen.
CT chest abnormal: Right hemidiaphragm elevation/right sided pleural effusion.
Nonsustained VT now on amiodarone infusion
Conditions present prior admission:
Severe MR-history of mitral valve prolapse-status post valve repair 10/2013/previously dehisced mitral valve ring status post [employer] mechanical valve replacement [facility] in 2013, paravalvular plug placed at [facility]
07/2016 due to paravalvular leak.
History of AVNRT
Paroxysmal atrial fibrillation on anticoagulation-Coumadin
GERD
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
Obstructive sleep apnea on CPAP therapy
COPD on 4 L of oxygen-unknown PFTs. Does not follow-up locally. No PFT available
On aformoterol/budesonide
Patient is a never smoker
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
Essential hypertension
Hyperlipidemia
Assessment and plan:
Clinical picture consistent with heart failure-increased proBNP, groundglass opacities on CAT scan, weight gain.
Atrial fibrillation is rate controlled
Developed nonsustained-VT this morning with unresponsiveness with echo showing global hypokinesis and no new echo findings compared to prior TTE on 09/03/2024. Left heart cath performed - no obstructive CAD with mild LAD myocardial bridge and near
normal LVEDP at 13 mmHg --> continue amiodarone per cardiology
Echocardiogram noted.
Weight is trending lower since admission
Diuresis per cardio
Currently on a heparin drip-follow PTT
For ICD on Friday
Coumadin restarted-trend INR
-
Continue oxygen supplementation, wean down as able.
Chronic hypercapnic respiratory failure,ABG 09/05/2024: 7.45/77/59 (compensated)
Compensatory metabolic alkalosis
Hypercapnia likely due to restriction from right hemidiaphragm paralysis. Diaphragm is paralyzed s/p multiple cardiac surgeries. At least since 2014
Does not follow-up locally but has a CPAP at night due to diagnosis of obstructive sleep apnea. Hypercapnia likely from diaphragm elevation and pulm restriction.
Can continue with BiPAP / while in the hospital. He feels better with it.
-
Abnormal CT chest: Chronic right hemidiaphragm elevation since 2014 or longer.
Right pleural effusion is multiloculated -suspect chronic given lymphocytic predominant on pleural fluid 82%. White blood cells 52 and LDH 181. No significant inflammation noted.
- Given concern for infectious process, he underwent R-sided chest tube via IR on 09/06/2024; Continue ABx with rocephin, and changed zithromax to doxy given prolonged QTc (QTc: 591ms on 09/07/2024);
cytology from pleural fluid negative for malignant cells.
Culture negative
Given negative cultures, afebrile, no leukocytosis, no increased white blood cells on pleural fluid or increased LDH-would complete only 5 days of antibiotics. Completed on 09/10/2024.
-
Status post tPA/dornase into chest tube as drainage has significantly slowed down as of 09/08/2024.
With lack of increased white blood cells/increased LDH/no significant signs of inflammation unclear if this will be effective.
Today 09/09/2024: Fluid appears more bloody. Discussed with nursing. Will instill only dornase alpha.
No output overnight.
Chest x-ray 09/10/2024: Small pleural effusion with right hemidiaphragm elevation. Not much change compared to prior day
Discussed with interventional radiology, no significant value/response with additional thrombolytics.
Will discontinue chest tube at this point.
Explained to patient that likely he will live with this amount of pleural fluid, continue with cardiac management.
Not a candidate for VATS at this point. His right hemidiaphragm elevation that is chronic for the last 10 to 12 years makes the right lower lobe nonfunctional regardless.
Continue with physical therapy
-
Patient has nonspecific mediastinal lymphadenopathy, enlargement may be due to volume overload.
Will need repeat CT scan with IV contrast in 3 months.
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 Patient follow-up with Dr. Echevarria from [facility].
-
History of COPD: On chronic oxygen 4 to 5 L. Never smoker. Prior exposure to fumes at a worksite
No evidence for acute exacerbation.
Maintain SpO2 88-95%
Continue Pulmicort (takes at home)
Replaced Afromoterol with duoneb TID --> change to xopenex and atrovent now that he had an arrythmia this AM; continue budesonide; resume home nebulized inhalers upon discharge
-
DVT prophylaxis-on coumadin; goal INR 2-3
-
From the pulmonary perspective. No additional recommendations.
I will sign off.
Please call with questions.

Data reviewed:
Chest US 09/06/2024: Multiloculated right pleural effusion.
Lower extremity Doppler 09/04/2024: No evidence for DVT
-
Abdominal ultrasound 09/04/2024: Small amount of MAT hepatic free fluid. No ascites.
-
CT chest 09/03/2024: Reviewed,
1. Small to moderate right pleural effusion.
2. Groundglass opacities in both lungs, greatest in the right upper lobe, suspicious for mild edema versus hypoventilatory changes.
3. Elevated right hemidiaphragm.
4. Cardiomegaly.
5. Mild mediastinal lymphadenopathy, nonspecific but probably more likely to be reactive.
6. Mild upper abdominal ascites.
Total time spent today was 52 minutes for this encounter. Time includes reviewing laboratory test/imaging results, reviewing pertinent medical records, obtaining and reviewing medical history, performing an appropriate exam, ordering medications,
tests and procedures. Time also includes documentation of this encounter, coordinating patient care and communicating with other healthcare professionals. Total time does not include separately billed tests performed on this date of service.
Subjective Data
-
Date of Service:
Date of Service: September 10, 2024
Chief Complaint: Pulmonary Follow Up (Pleural effusion/hypoxemic respiratory failure)
Subjective:
Patient denies any significant pulmonary complaints
Yesterday ambulated with physical therapy around the [place]
Remains on low rate supplemental oxygen
Denies significant chest pain
Review of Systems
General: Fever (n)
Cardiopulmonary: Dyspnea and Dyspnea on Exertion
GI: Abdominal Pain (n) and Nausea (n)
Objective Data
Data Reviewed
Vital Signs / I&O / Oxygen:
Vital Signs
Temp Pulse Resp BP Pulse Ox
98.2 F 104 23 115/93 96
09/10/24 07:10 09/10/24 09:00 09/10/24 09:00 09/10/24 09:00 09/10/24 09:00
Intake and Output
09/09/24 09/10/24 09/11/24
06:59 06:59 06:59
Intake Total 1354.3 / 1527.0 1135.8 / 1135.8
Output Total 2665 / 2665 1600 / 1600 900 / 900
Balance -1310.7 / -1138.0 -464.2 / -464.2 -900 / -900
SaO2 96
Nasal Cannula flow liters per 4
minute
Physical Exam
General: Respiratory Distress (negative), Comfortable, Chills (negative), Sweats (negative) and Good Appetite
HEENT: Normocephalic, Anicteric and Moist Mucous Membranes
Cardiovascular: Irregular Rhythm and Peripheral Edema (+1 pitting lower extremity edema bilaterally)
Respiratory: Wheeze (negative), Crackles (right base), Rhonchi (negative), Non-Labored Respirations, Chest Tube (Bloody output, no airleak) and Other (Decreased breath sounds in the right)
GI: Soft, Non Distended, Non Tender and Normal Bowel Sounds
Neurology: AO x 3 and Tremors (negative)
Skin: Warm, Dry, Cyanosis (negative) and Jaundice (negative)
Labs/Micro/Reports
Lab Data
09/10/24 05:27
09/10/24 05:27
Laboratory Results
09/09/24 09/09/24 09/10/24
15:22 22:54 05:27
PT 26.4 H
INR 2.40
APTT 65.2 H 103.3 H 143.4 H
09/10/24
06:15
PT
INR
APTT Cancelled
Microbiology
09/06/24 14:34 Pleural Fluid Body Fluid Culture - Final
No Growth After 72 Hours
09/06/24 14:34 Pleural Fluid Gram Stain - Final
[2024-09-10 11:49] LABS: Glucose - Point of Care 166 mg/dl (70-99)
[2024-09-10] MEDS: NOVOLOG FLEXPEN-LOW RESISTANCE SC (12:21)
[2024-09-10] MEDS: STERILE WATER FOR INJECTION 20 ML IV (12:31)
[2024-09-10] MEDS: KCL 20 MEQ PO (12:31)
[2024-09-10] MEDS: ROCEPHIN 2000 MG IV (12:31)
[2024-09-10] MEDS: DULCOLAX 10 MG RECTAL (15:39)
[2024-09-10] MEDS: TYLENOL 1000 MG PO (15:39)
[2024-09-10] MEDS: HEPARIN 25000 UNITS/250 ML IV (15:46)
[2024-09-10 15:56] LABS: APTT 72.1 Sec (23.4-35.0)
--- NOTE | 2024-09-10 16:15 | CM ---
Patient with Dx acute on chronic hypercapnic hypoxemic respiratory failure, CHF, COPD, R pleural effusion s/p thoracentesis. O2 4L. Chest tube removed today. Tentative plan ICD Mon 09/13. Receiving IV Lasix, IV Abx, Heparin gtt. PT/OT recommend
HH.
Patient previously declined VN.
CM continuing to follow.
Plan home.
--- NOTE | 2024-09-10 16:46 | PTCARENOTE ---
Patient reporting feeling down about his situation, emotional support given. RN advised patient if he needs someone to talk to, there are services we can provide. Pt declined at this time. Pt also c/o of no BM for 6 days, despite given PRN bowel
medications 2 nights ago. Pt asked for suppository. Pt preferred to self administer, pt is very modest. Pt did have large BM in bathroom. Pt educated on bowel regimen. Heparin gtt infusing to R PICC line. Assessment, care and VS as charted.
--- NOTE | 2024-09-10 20:11 | PTCARENOTE ---
Received pt from previous shift; Pt AAOx3, c/o mild pain to his PICC site. Afib on the monitor, SpO2 96% on 2LNC, R side diminished with fine crackles at the base. CT site dressing C/D/I. Pt assist x1 to the bathroom, steady gait. Remainder of
assessment as documented. Heparin gtt infusing at 1100units/hr. Pt updated on POC, including next PTT draw @ ~2230. Pt resting comfortably in bed, call [facility] within hand.
[2024-09-10] MEDS: AFRIN NASAL SPRAY 4 SPRAYS NASAL (20:27)
[2024-09-10] MEDS: TOPROL XL PO (20:28)
[2024-09-10] MEDS: PACERONE PO (20:28)
[2024-09-10] MEDS: VALTREX 1000 MG PO (22:44)
[2024-09-10] MEDS: CRESTOR 5 MG PO (22:44)
[2024-09-10 23:16] LABS: APTT 108.1 Sec (23.4-35.0)
[2024-09-11] VITALS (23 sets, daily range): BP systolic 84–129; BP diastolic 54–102; PULSE 2–110; BMI 28.5
[2024-09-11 05:18] LABS: Hematocrit 33.7 % (39.0-52.0); Hemoglobin 11.6 g/dL (13.0-18.0); Mean Corp Hgb Conc. 34.4 g/dL (33.0-37.0); Mean Corpuscular Hgb 28.5 pg (27.0-31.0); Mean Corpuscular Volume 82.8 fL (80.0-94.0); Mean Platelet Volume 9.6 fL (7.4-10.4); Platelet Count 299 10^3/uL (130-400); Red Blood Cell Count 4.07 10^6/uL (4.70-6.10); Red Cell Dist. Width 15.1 % (11.5-14.5); White Blood Cell Count 7.2 10^3/uL (4.8-10.8)
[2024-09-11 05:23] LABS: INR 2.37; PT 25.8 Sec (11.4-14.6)
[2024-09-11 05:24] LABS: APTT 70.8 Sec (23.4-35.0)
[2024-09-11 05:37] LABS: Blood Urea Nitrogen 25 mg/dl (9-20); Calcium 9.3 mg/dl (8.4-10.2); Chloride 77 mmol/L (98-107); Estimated Creatinine Clearance 94 ml/min; Glucose 140 mg/dl (70-99); Magnesium 1.6 mg/dl (1.6-2.3); Potassium 3.7 mmol/L (3.5-5.1); Sodium 128 mmol/L (135-145); eGFR > 60.00
[2024-09-11 05:56] LABS: Carbon Dioxide 35 mmol/L (22-30)
--- NOTE | 2024-09-11 07:30 | W.PN.CARDCBS ---
Addendum entered and electronically signed by Radames Rodrigues DO 09/11/24 09:30:
I saw and examined the patient.
The Sales Representative [employer]'s note was reviewed and I agree with the note.
Comment:
Resting comfortably, no complaints
AF HR 90-120 on playground monitor
-2.7L/24h
Continue amiodarone, toprol XL 50 BID
Hold diuretics for now, monitor renal function and outputs
IV heparin for now, INR 2.4 09/10, 2.37 today. Repeat INR check 09/12 and 09/13; no additional coumadin dosing at this time based on INR
Tentative plan for ICD implant 09/13, NPO after midnight
Original Note:
Today's Communication / Plan
-
Continue amiodarone
Continue IV heparin w/ plan for ICD 09/13
Follow on tele
Replete K, mag
Impression / Plan
-
Primary Limited Radiology Technician: Dr. Salazar
Impression:
Presentation with SOB, LE edema
Acute hypoxic respiratory failure, requiring BIPAP in ER
Acute on chronic HFrEF
R pleural effusion s/p right CT placement
s/p Ventricular Tachycardia episode w/ unresponsiveness 09/08/2024
PAF
History of AVNRT
Severe MR
s/p MV repair via mini thoracotomy 10/2013 at [facility]
Previously dehisced mitral valve ring status post St Simone mechanical mitral valve replacement at [facility] in 2013 with redo sternotomy
Paravalvular plug placed at [facility] 07/2016 due to symptomatic worsening paravalvular leak
Chronic coumadin therapy, managed by [facility]
COPD, on 4L NC home O2
HLD
JENNIFER on CPAP
PVCs
Anxiety
ECHO 04/15/23: EF 45 to 50%, mild concentric LVH, stage II diastolic dysfunction, status post mechanical mitral valve prosthesis with peak/mean gradients 19/9 mmHg, no MR, mild to moderate AR, mild TR, PAP 49 mmHg, dilated aorta measuring 4.1 cm.
Echo 09/03/24: LVEF 40%, moderate LVH, dilated RV with reduced RV function, mechanical mitral valve with mean gradient of 5 and no MR. PA pressure 60-65. Ascending aorta 4.3 cm
Echo 09/08/2024: Fair image quality. Left ventricle is dilated. Moderately reduced left ventricular systolic function. Global hypokinesis. Left ventricular ejection fraction is 35-40%. Enlarged right ventricular size. Compared to prior echo from
Sep 03 2024, which was reviewed, findings are similar.
Left heart cath Sep 08 2024:
HEMODYNAMICS : (mmHg)
AO (s/d) : 91/58
LV (s/d) : 94/9
LVEDP : 13
CORONARY FINDINGS
DOMINANCE: Right
LEFT MAIN: The left main artery is a large-caliber vessel which gives rise to the left anterior descending artery and the left circumflex artery. There is minimal luminal irregularities.
LEFT ANTERIOR DESCENDING: The left anterior descending artery is a medium to large caliber vessel which gives off a high rising diagonal as it courses through the anterior interventricular groove and wraps around the apex. There is a mid LAD
myocardial bridge noted but otherwise no obstructive coronary artery disease.
CIRCUMFLEX: The left circumflex artery is a medium caliber vessel which gives rise to 1 major obtuse marginal branch. There is minimal luminal irregularities.
RIGHT CORONARY ARTERY: The right coronary artery is a large-caliber, dominant vessel which gives rise to the right posterior descending artery and the right posterolateral system. There is minimal luminal irregularities.
CONCLUSIONS
1. No obstructive coronary artery disease.
2. Mid LAD myocardial bridge is present.
3. Near normal LVEDP at 13 mmHg.
Plan:
-Presented from [facility] office w/ worsening SOB and hypoxia, requiring BiPAP in ER. Admitted with acute heart failure. No complaints this AM, resting comfortably in bed.
-Diuresed with IV lasix and metolazone. Weight down 32 lbs this admission. Lasix and metolazone held 09/10.
-Creat improved 09/11, down to 0.8. Consider restarting PO lasix in AM.
-Episode of VT w/ unresponsiveness 09/08. Started on amio drip and transitioned to amiodarone 200mg BID. No further VT noted on telemetry.
-Echo with stable EF, 35-40%.
-LHC 09/08 with no obstructive CAD. Plan is for ICD Friday, 09/13.
-Remains in persistent atrial fibrillation on telemetry. HRs stable. Continue Toprol 50mg BID and amiodarone 200mg BID.
-Continues on heparin. Given 1 dose of coumadin 09/09. INR 2.37. Goal INR 2.5 to 3.5 w/ h/o mechanical MVR. Will hold Coumadin for now and continue heparin alone given plan for ICD Friday.
-Verapamil stopped due to hypotension. PRN midodrine new this admission.
-K 3.7, mag 1.6, will replete. Keep K>4, mag >2.
-On chronic O2 as OP.
Progress Note - Limited Radiology Technician
Subjective
Date of Service: September 11, 2024
No complaints, feeling well. No SOB or edema.
Objective
Labs:
09/11/24 04:50
09/11/24 04:50
Labs
Hgb 11.6 g/dL (13.0-18.0) L 09/11/24 04:50
Hct 33.7 % (39.0-52.0) L 09/11/24 04:50
Plt Count 299 10^3/uL (130-400) 09/11/24 04:50
PT Cancelled 09/11/24 06:00
INR Cancelled 09/11/24 06:00
APTT 70.8 Sec (23.4-35.0) H 09/11/24 04:50
Sodium 128 mmol/L (135-145) L 09/11/24 04:50
Potassium 3.7 mmol/L (3.5-5.1) 09/11/24 04:50
BUN 25 mg/dl (9-20) H 09/11/24 04:50
Creatinine 0.8 mg/dL (0.7-1.3) 09/11/24 04:50
Glucose 140 mg/dl (70-99) H 09/11/24 04:50
Troponins
09/08/24 09/08/24 09/08/24
09:27 09:45 19:46
Troponin I 0.014 Cancelled 0.012
09/09/24
01:28
Troponin I 0.013
Vital Signs and I&O:
Vital Signs
Temp Pulse Resp BP Pulse Ox
98.3 F 84 19 101/57 99
09/10/24 23:01 09/11/24 06:00 09/11/24 06:00 09/11/24 06:00 09/11/24 06:00
Vital Signs
Temp Pulse Resp BP Pulse Ox
98.3 F 84 19 101/57 99
09/10/24 23:01 09/11/24 06:00 09/11/24 06:00 09/11/24 06:00 09/11/24 06:00
Intake & Output
09/09/24 09/10/24 09/11/24 09/12/24
06:59 06:59 06:59 06:59
Intake Total 1354.3 / 1527.0 1135.8 / 1135.8 115 / 115
Output Total 2665 / 2665 1600 / 1600 2575 / 2575
Balance -1310.7 / -1138.0 -464.2 / -464.2 -2460 / -2460
Physical Exam
Physical Exam
GEN: No distress, awake, alert, oriented x3
HEENT: supple, anicteric, mmm
LUNGS: CTA, no wheezes/rales
CV: Irregularly irregular, S1/S2, no murmur
EXT: No clubbing, cyanosis, or edema
NEURO: Gross non-focal
SKIN: Warm, dry, no rash
[2024-09-11] MEDS: VIBRAMYCIN 100 MG PO ×2 (08:10→19:38)
[2024-09-11] MEDS: ZOLOFT 100 MG PO (08:10)
[2024-09-11] MEDS: PACERONE 200 MG PO ×2 (08:10→19:43)
[2024-09-11] MEDS: MAGNESIUM OXIDE 500 MG PO (08:10)
[2024-09-11] MEDS: ASPIR LOW (ENTERIC COATED) 81 MG PO (08:10)
[2024-09-11] MEDS: AFRIN NASAL SPRAY 2 SPRAYS NASAL (08:11)
[2024-09-11] MEDS: NSS (PRESERVATIVE FREE) 10 ML IV (08:11)
[2024-09-11] MEDS: PROTONIX IV 40 MG IV (08:11)
[2024-09-11] MEDS: PULMICORT 0.5 MG INH ×2 (08:13→20:16)
[2024-09-11] MEDS: XOPENEX 1.25 MG INHALANT SOLUTION INH ×3 (08:13→20:16)
[2024-09-11] MEDS: ATROVENT NEBULES 0.5 MG INH ×3 (08:13→20:15)
[2024-09-11] MEDS: ProAmatine 5 MG PO ×2 (08:19→17:05)
[2024-09-11] MEDS: FLUSH (NSS) 2 FLUSH IV (08:19)
--- NOTE | 2024-09-11 08:31 | W.PN.HOSP.TC ---
Today's Communication/Plan
-
see A/P
Assessment / Plan
Assessment / Plan
A/P:
# Acute on chronic hypoxemic respiratory failure possibly secondary to below.
# Acute on chronic HFrEF
# Acute COPD exacerbation
# Right sided pleural effusion s/p chest tube placement 09/06.
Requiring BiPaP at night time.
weaned to 2L NC (baseline at 4L NC)
repeat ECHO with severely dilated right atrium and dilated right ventricle EF 40%,
IV Lasix 40 BID with metolazone 2.5 mg daily on hold, now approaching euvolemic
R sided chest tube was placed due to loculated effusion
thora labs reviewed- exudative fluid
Pleural fluid culture so far no growth. Cytology Negative for malignant cells.
Cont empiric antibiotics Ceftriaxone, azithromycin changed to doxycycline for right-sided empyema
s/p tPA chest tube instillation procedure
Given drainage has significantly slowed down, Chest tube removed 09/10.
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
Pulm on board
# Episode of VT with spontaneous conversion 09/08
amiodarone drip to PO amiodarone 200 BID
cardiac cath 09/08: No obstructive coronary artery disease. Mid LAD myocardial bridge is present.
Card on board, for ICD Thursday 09/13
# chronic hypercapnic hypoxemic respiratory failure
# oxygen dependent COPD with compensated metabolic alkalosis
baseline on 4-5L NC, currently on 2L NC
cont nebs, MDIs
no wheezing, hold on systemic steroids
apprec pulm
# bilateral LE edema with increased abdominal girth and weight gain
BL US LE neg for DVT, and no ascites on US
# Paroxysmal atrial fibrillation on chronic Coumadin therapy
heparin bridging
cont metoprolol and verapamil, both with holding parameters
resume Coumadin after ICD placement
# Severe MR s/p MV repair via mini thoracotomy 10/2013 at [facility] with mechanical valve
heparin bridging
daily INR while on Coumadin, Goal INR 2.5-3.5.
cont asa, statin, metoprolol
# Anxiety
Continue sertraline
# Obstructive sleep apnea on CPAP
# Hypokalemia
replete K
DVT prophylaxis, heparin bridging
CODE STATUS-- full code
DW RN
Anticipated Discharge: > 48 hours
Subjective/Interval History
-
Date of Service: September 11, 2024
Objective Data
-
Labs:
Laboratory Results
09/10/24 09/11/24 09/11/24
22:47 04:50 06:00
WBC 7.2
Hgb 11.6 L
Hct 33.7 L
Plt Count 299
PT 25.8 H Cancelled
INR 2.37 Cancelled
APTT 108.1 H 70.8 H
Sodium 128 L
Potassium 3.7
Chloride 77 L
Carbon Dioxide 35 H
BUN 25 H
Creatinine 0.8
Glucose 140 H
Calcium 9.3
09/11/24
12:00
WBC
Hgb
Hct
Plt Count
PT
INR
APTT Pending
Sodium
Potassium
Chloride
Carbon Dioxide
BUN
Creatinine
Glucose
Calcium
Vital Signs:
Vital Signs
Temp Pulse Resp BP Pulse Ox
36.8 C 104 20 96/65 97
09/11/24 07:30 09/11/24 08:19 09/11/24 08:19 09/11/24 08:19 09/11/24 08:19
I&O
09/10/24 09/11/24 09/12/24
06:59 06:59 06:59
Intake Total 1135.8 / 1135.8 115 / 115
Output Total 1600 / 1600 2575 / 2575 800 / 800
Balance -464.2 / -464.2 -2460 / -2460 -800 / -800
Review of Systems
-
All other systems: Reviewed and negative (except as documented)
Physical Exam
-
General: Well Developed, Well Nourished and Respiratory Distress (chronic)
HEENT: Oxygen (2L NC)
Respiratory: Non Labored Respirations and Decreased Breath Sounds; Negative Accessory Resp Muscle Use
Cardiac: Regular Rhythm and S1/S2
GI: Soft, Nontender and Nondistended
Musculoskeletal: Edema, Right Lower Extrem (improved) and Edema, Left Lower Extrem (improved)
Neuro: Awake and Alert
Psych: Calm and Intact Judgement/Insight
Data Reviewed
-
Labs: Labs Reviewed by me
[2024-09-11] MEDS: KCL 20 MEQ PO (09:58)
[2024-09-11] MEDS: TOPROL XL 50 MG PO ×2 (10:01→19:43)
[2024-09-11 12:39] LABS: APTT 102.2 Sec (23.4-35.0)
[2024-09-11] MEDS: ROCEPHIN 2000 MG IV (13:23)
[2024-09-11] MEDS: TYLENOL 1000 MG PO (13:23)
[2024-09-11] MEDS: STERILE WATER FOR INJECTION 20 ML IV (13:23)
[2024-09-11] MEDS: MIRALAX 17 GRAMS PO (13:27)
[2024-09-11] MEDS: HEPARIN 25000 UNITS/250 ML IV (15:34)
[2024-09-11 19:14] LABS: APTT 65.9 Sec (23.4-35.0)
[2024-09-11] MEDS: AFRIN NASAL SPRAY 4 SPRAYS NASAL (19:41)
--- NOTE | 2024-09-11 21:03 | PTCARENOTE ---
Received pt from previous shift; AAOx3, offers no complaints at this time. Heparin gtt adjusted based off of resulted PTT, pt education provided, see flowsheet. Afib on the monitor with BBB, SpO2 97% on 2LNC, lung sounds severely diminished 1/2 up
on the right, borderline absent at the R base. CT dressing remains C/D/I. Remainder of assessment as documented. Pt updated on POC for the evening, including scheduled blood draws. Pt resting comfortably in bed, awaiting BiPAP from RT, no questions
at this time, call bowden within reach.
[2024-09-11] MEDS: CRESTOR 5 MG PO (21:25)
[2024-09-11] MEDS: VALTREX 1000 MG PO (21:25)
[2024-09-12] VITALS (22 sets, daily range): BP systolic 74–109; BP diastolic 53–83; PULSE 2–110; BMI 28.5
[2024-09-12 01:54] LABS: APTT 122.1 Sec (23.4-35.0)
[2024-09-12 05:42] LABS: INR 1.92; PT 21.8 Sec (11.4-14.6)
[2024-09-12 05:52] LABS: Hematocrit 33.4 % (39.0-52.0); Hemoglobin 11.7 g/dL (13.0-18.0); Mean Corpuscular Hgb 28.9 pg (27.0-31.0); Mean Corpuscular Volume 82.5 fL (80.0-94.0); Mean Platelet Volume 9.8 fL (7.4-10.4); Platelet Count 335 10^3/uL (130-400); Red Blood Cell Count 4.05 10^6/uL (4.70-6.10); Red Cell Dist. Width 15.2 % (11.5-14.5); White Blood Cell Count 8.9 10^3/uL (4.8-10.8)
[2024-09-12 05:57] LABS: Blood Urea Nitrogen 21 mg/dl (9-20); Calcium 9.3 mg/dl (8.4-10.2); Carbon Dioxide 36 mmol/L (22-30); Chloride 81 mmol/L (98-107); Estimated Creatinine Clearance 107 ml/min; Glucose 124 mg/dl (70-99); Magnesium 1.6 mg/dl (1.6-2.3); Potassium 4.1 mmol/L (3.5-5.1); Sodium 127 mmol/L (135-145); eGFR > 60.00
[2024-09-12] MEDS: PULMICORT 0.5 MG INH (07:35)
[2024-09-12] MEDS: ATROVENT NEBULES 0.5 MG INH ×3 (07:36→19:33)
[2024-09-12] MEDS: XOPENEX 1.25 MG INHALANT SOLUTION INH ×3 (07:36→19:33)
--- NOTE | 2024-09-12 07:53 | W.PN.HOSP.TC ---
Today's Communication/Plan
-
see A/P
Assessment / Plan
Assessment / Plan
A/P:
# Acute on chronic hypoxemic respiratory failure possibly secondary to below.
# Acute on chronic HFrEF
# Acute COPD exacerbation
# Right sided pleural effusion s/p chest tube placement 09/06.
Requiring BiPaP at night time.
weaned to 3L NC (baseline at 4L NC)
repeat ECHO with severely dilated right atrium and dilated right ventricle EF 40%,
IV Lasix 40 BID with metolazone 2.5 mg daily on hold, now approaching euvolemic
R sided chest tube was placed due to loculated effusion
thora labs reviewed- exudative fluid
Pleural fluid culture so far no growth. Cytology Negative for malignant cells.
Started empiric antibiotics Ceftriaxone, azithromycin changed to doxycycline for right-sided empyema, total 5 days
s/p tPA chest tube instillation procedure
Given drainage has significantly slowed down, Chest tube removed 09/10.
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
Pulm on board
# Episode of VT with spontaneous conversion 09/08
amiodarone drip to PO amiodarone 200 BID
s/p cardiac cath 09/08: No obstructive coronary artery disease. Mid LAD myocardial bridge is present.
Card on board, for ICD Thursday 09/13
# chronic hypercapnic hypoxemic respiratory failure
# oxygen dependent COPD with compensated metabolic alkalosis
baseline on 4-5L NC, currently on 3L NC
cont nebs, MDIs
no wheezing, hold on systemic steroids
apprec pulm
# bilateral LE edema with increased abdominal girth and weight gain
BL US LE neg for DVT, and no ascites on US
# Paroxysmal atrial fibrillation on chronic Coumadin therapy
heparin bridging
cont metoprolol and verapamil, both with holding parameters
resume Coumadin after ICD placement
# Severe MR s/p MV repair via mini thoracotomy 10/2013 at [facility] with mechanical valve
heparin bridging
daily INR while on Coumadin, Goal INR 2.5-3.5.
cont asa, statin, metoprolol
# Anxiety
Continue sertraline
# Obstructive sleep apnea on CPAP
# Hypokalemia
repleted K
# Hyponatremia, ?due to overdiuresis
IV lasix/metolazone have been held
Monitor
DVT prophylaxis, heparin bridging
CODE STATUS-- full code
Dispo; HH
Anticipated Discharge: 24 - 48 hours
Subjective/Interval History
-
Date of Service: September 12, 2024
Objective Data
-
Labs:
Laboratory Results
09/12/24 09/12/24 09/12/24
01:35 05:15 08:10
WBC 8.9
Hgb 11.7 L
Hct 33.4 L
Plt Count 335
PT 21.8 H
INR 1.92
APTT 122.1 H Pending
Sodium 127 L
Potassium 4.1
Chloride 81 L
Carbon Dioxide 36 H
BUN 21 H
Creatinine 0.7
Glucose 124 H
Calcium 9.3
Vital Signs:
Vital Signs
Temp Pulse Resp BP Pulse Ox
36.4 C 91 16 92/70 96
09/12/24 03:10 09/12/24 07:41 09/12/24 07:41 09/12/24 06:00 09/12/24 07:41
I&O
09/11/24 09/12/24 09/13/24
06:59 06:59 06:59
Intake Total 115 / 115 1104 / 1104
Output Total 2575 / 2575 3750 / 3750
Balance -2460 / -2460 -2646 / -2646
Review of Systems
-
All other systems: Reviewed and negative (except as documented)
Physical Exam
-
General: Well Developed, Well Nourished and Respiratory Distress (chronic)
HEENT: Oxygen (3L NC)
Respiratory: Non Labored Respirations and Decreased Breath Sounds; Negative Accessory Resp Muscle Use
Cardiac: Regular Rhythm and S1/S2
GI: Soft, Nontender and Nondistended
Musculoskeletal: Edema, Right Lower Extrem (improved) and Edema, Left Lower Extrem (improved)
Neuro: Awake and Alert
Psych: Calm and Intact Judgement/Insight
Data Reviewed
-
Labs: Labs Reviewed by me
[2024-09-12] MEDS: MAGNESIUM SULFATE 50 IV (08:44)
[2024-09-12] MEDS: ProAmatine 5 MG PO ×2 (08:45→22:35)
[2024-09-12] MEDS: AFRIN NASAL SPRAY 4 SPRAYS NASAL (08:45)
[2024-09-12] MEDS: ZOLOFT 100 MG PO (08:46)
[2024-09-12] MEDS: VIBRAMYCIN 100 MG PO ×2 (08:46→20:54)
[2024-09-12] MEDS: ASPIR LOW (ENTERIC COATED) 81 MG PO (08:46)
[2024-09-12] MEDS: PACERONE 200 MG PO ×2 (08:46→20:54)
[2024-09-12] MEDS: NSS (PRESERVATIVE FREE) 10 ML IV (08:47)
[2024-09-12] MEDS: PROTONIX IV 40 MG IV (08:47)
[2024-09-12 08:48] LABS: APTT 83.3 Sec (23.4-35.0)
[2024-09-12] MEDS: HEPARIN 25000 UNITS/250 ML IV (10:08)
--- NOTE | 2024-09-12 11:15 | W.PN.CARDCBS ---
Today's Communication / Plan
-
Coumadin single dose tonight, INR check in AM
NPO after midnight, tentative ICD implant 09/13
Diuretic on hold for now, consider resuming oral diuretic 09/13
Impression / Plan
-
Primary Manager Underwriting: Dr. Salazar
Impression:
Presentation with SOB, LE edema
Acute hypoxic respiratory failure, requiring BIPAP in ER
Acute on chronic HFrEF, improved
R pleural effusion s/p right CT placement
s/p Ventricular Tachycardia episode w/ unresponsiveness 09/08/2024
PAF
History of AVNRT
Severe MR
s/p MV repair via mini thoracotomy 10/2013 at [facility]
Previously dehisced mitral valve ring status post St Simone mechanical mitral valve replacement at [facility] in 2013 with redo sternotomy
Paravalvular plug placed at [facility] 07/2016 due to symptomatic worsening paravalvular leak
Chronic coumadin therapy, managed by [facility]
COPD, on 4L NC home O2
HLD
JENNIFER on CPAP
PVCs
Anxiety
ECHO 04/15/23: EF 45 to 50%, mild concentric LVH, stage II diastolic dysfunction, status post mechanical mitral valve prosthesis with peak/mean gradients 19/9 mmHg, no MR, mild to moderate AR, mild TR, PAP 49 mmHg, dilated aorta measuring 4.1 cm.
Echo 09/03/24: LVEF 40%, moderate LVH, dilated RV with reduced RV function, mechanical mitral valve with mean gradient of 5 and no MR. PA pressure 60-65. Ascending aorta 4.3 cm
Echo 09/08/2024: Fair image quality. Left ventricle is dilated. Moderately reduced left ventricular systolic function. Global hypokinesis. Left ventricular ejection fraction is 35-40%. Enlarged right ventricular size. Compared to prior echo from
Sep 03 2024, which was reviewed, findings are similar.
Left heart cath Sep 08 2024:
HEMODYNAMICS : (mmHg)
AO (s/d) : 91/58
LV (s/d) : 94/9
LVEDP : 13
CORONARY FINDINGS
DOMINANCE: Right
LEFT MAIN: The left main artery is a large-caliber vessel which gives rise to the left anterior descending artery and the left circumflex artery. There is minimal luminal irregularities.
LEFT ANTERIOR DESCENDING: The left anterior descending artery is a medium to large caliber vessel which gives off a high rising diagonal as it courses through the anterior interventricular groove and wraps around the apex. There is a mid LAD
myocardial bridge noted but otherwise no obstructive coronary artery disease.
CIRCUMFLEX: The left circumflex artery is a medium caliber vessel which gives rise to 1 major obtuse marginal branch. There is minimal luminal irregularities.
RIGHT CORONARY ARTERY: The right coronary artery is a large-caliber, dominant vessel which gives rise to the right posterior descending artery and the right posterolateral system. There is minimal luminal irregularities.
CONCLUSIONS
1. No obstructive coronary artery disease.
2. Mid LAD myocardial bridge is present.
3. Near normal LVEDP at 13 mmHg.
Plan:
-Presented from [facility] office w/ worsening SOB and hypoxia, requiring BiPAP in ER. Admitted with acute heart failure. No complaints this AM, resting comfortably in bed.
-Diuresed with IV lasix and metolazone. Weight down 32 lbs this admission. Lasix and metolazone held 09/10.
-Creat improved 09/11, down to 0.8. Consider restarting PO lasix in AM 09/13; remains euvolemic with good UOP
-Episode of VT w/ unresponsiveness 09/08. Started on amio drip and transitioned to amiodarone 200mg BID. No further VT noted on telemetry.
-Echo with stable EF, 35-40%.
-LHC 09/08 with no obstructive CAD. Plan is for ICD Friday, 09/13; shared decision making tool provided to patient on ICD
-Remains in persistent atrial fibrillation on telemetry. HRs stable. Continue Toprol 50mg BID and amiodarone 200mg BID.
-Continues on heparin. Given 1 dose of coumadin 09/09. INR 2.37. Goal INR 2.5 to 3.5 w/ h/o mechanical MVR. Will give dose of coumadin with plan for INR check in AM
-Verapamil stopped due to hypotension. PRN midodrine new this admission.
-K 3.7, mag 1.6, will replete. Keep K>4, mag >2.
-On chronic O2 as OP.
Progress Note - Manager Underwriting
Subjective
Date of Service: September 12, 2024
Patient seen and examined. No acute events overnight. Patient resting comfortably in bed. No complaints. AF 80-[address] removed 09/11.
Objective
Labs:
09/12/24 05:15
09/12/24 05:15
Labs
Hgb 11.7 g/dL (13.0-18.0) L 09/12/24 05:15
Hct 33.4 % (39.0-52.0) L 09/12/24 05:15
Plt Count 335 10^3/uL (130-400) 09/12/24 05:15
PT 21.8 Sec (11.4-14.6) H 09/12/24 05:15
INR 1.92 09/12/24 05:15
APTT 83.3 Sec (23.4-35.0) H 09/12/24 08:31
Sodium 127 mmol/L (135-145) L 09/12/24 05:15
Potassium 4.1 mmol/L (3.5-5.1) 09/12/24 05:15
BUN 21 mg/dl (9-20) H 09/12/24 05:15
Creatinine 0.7 mg/dL (0.7-1.3) 09/12/24 05:15
Glucose 124 mg/dl (70-99) H 09/12/24 05:15
Vital Signs and I&O:
Vital Signs
Temp Pulse Resp BP Pulse Ox
97.9 F 90 23 90/62 96
09/12/24 07:35 09/12/24 10:08 09/12/24 10:08 09/12/24 10:08 09/12/24 10:08
Vital Signs
Temp Pulse Resp BP Pulse Ox
97.9 F 90 23 90/62 96
09/12/24 07:35 09/12/24 10:08 09/12/24 10:08 09/12/24 10:08 09/12/24 10:08
Intake & Output
09/10/24 09/11/24 09/12/24 09/13/24
06:59 06:59 06:59 06:59
Intake Total 1135.8 / 1135.8 115 / 115 1104 / 1104
Output Total 1600 / 1600 2575 / 2575 3750 / 3750
Balance -464.2 / -464.2 -2460 / -2460 -2646 / -2646
Physical Exam
Physical Exam
GEN: No distress, awake, alert, oriented x3
HEENT: supple, anicteric, mmm
LUNGS: CTA, no wheezes/rales
CV: Irregularly irregular, S1/S2, no murmur
EXT: No clubbing, cyanosis, or edema
NEURO: Gross non-focal
SKIN: Warm, dry, no rash
[2024-09-12] MEDS: STERILE WATER FOR INJECTION IV (11:38)
[2024-09-12] MEDS: TOPROL XL 50 MG PO (11:40)
[2024-09-12 14:24] LABS: APTT 85.1 Sec (23.4-35.0)
[2024-09-12] MEDS: COUMADIN 5 MG PO (18:10)
--- NOTE | 2024-09-12 18:26 | PTCARENOTE ---
Assumed care of patient at beginning of this shift from previous RN with heparin infusing at 1200 units/hr. Patient had 2 therapeutic PTTs today; order entered for PTT draw in the morning. Patient OOB to chair for a good part of the day. He has some
anxiousness about his condition and needed encouragement. Instructed he will be NPO after MN for SHERYL/cardioversion. See worklist for full assessment and vital signs; see MAR for med administration.
[2024-09-12] MEDS: AFRIN NASAL SPRAY 30 SPRAYS NASAL (21:00)
[2024-09-12] MEDS: TOPROL XL PO (21:02)
[2024-09-12] MEDS: ZOFRAN 4 MG IV (21:48)
[2024-09-12] MEDS: CRESTOR 5 MG PO (22:35)
[2024-09-12] MEDS: VALTREX 1000 MG PO (22:35)
[2024-09-13] VITALS (53 sets, daily range): BP systolic 85–122; BP diastolic 36–96; PULSE 2–78; BMI 28.3
--- NOTE | 2024-09-13 00:53 | PTCARENOTE ---
Received patient from previous RN. Patient is Aox3, anxious with a flat affect. Patient wears bipap at night. Patient was wearing bipap and began to feel nauseous and starting vomiting. Patient said the pressure from bipap made him feel nauseous.
Notified respiratory therapy so they could check the bipap settings and educated patient on why we will keep him off bipap tonight because of the vomiting. Patient was given zofran for nauseous, see MAR. Patient is resting in bed with call bowden in
reach.
[2024-09-13 06:07] LABS: Hematocrit 34.2 % (39.0-52.0); Hemoglobin 11.8 g/dL (13.0-18.0); Mean Corp Hgb Conc. 34.5 g/dL (33.0-37.0); Mean Corpuscular Hgb 29.4 pg (27.0-31.0); Mean Corpuscular Volume 85.1 fL (80.0-94.0); Mean Platelet Volume 9.5 fL (7.4-10.4); Platelet Count 309 10^3/uL (130-400); Red Blood Cell Count 4.02 10^6/uL (4.70-6.10); Red Cell Dist. Width 15.3 % (11.5-14.5); White Blood Cell Count 9.4 10^3/uL (4.8-10.8)
[2024-09-13 06:11] LABS: INR 1.65; PT 19.4 Sec (11.4-14.6)
[2024-09-13 06:13] LABS: APTT 91.7 Sec (23.4-35.0)
[2024-09-13 06:22] LABS: Blood Urea Nitrogen 18 mg/dl (9-20); Calcium 9.2 mg/dl (8.4-10.2); Carbon Dioxide 36 mmol/L (22-30); Chloride 81 mmol/L (98-107); Estimated Creatinine Clearance 83 ml/min; Glucose 121 mg/dl (70-99); Magnesium 1.7 mg/dl (1.6-2.3); Potassium 3.8 mmol/L (3.5-5.1); Sodium 127 mmol/L (135-145); eGFR > 60.00
[2024-09-13] MEDS: XOPENEX 1.25 MG INHALANT SOLUTION INH ×3 (07:17→19:29)
[2024-09-13] MEDS: ATROVENT NEBULES 0.5 MG INH ×3 (07:18→19:29)
[2024-09-13] MEDS: PACERONE 200 MG PO ×2 (08:36→19:45)
[2024-09-13] MEDS: ASPIR LOW (ENTERIC COATED) 81 MG PO (08:36)
[2024-09-13] MEDS: TOPROL XL 50 MG PO ×2 (08:38→20:17)
[2024-09-13] MEDS: ZOLOFT 100 MG PO (08:38)
[2024-09-13] MEDS: PROTONIX IV 40 MG IV (08:38)
[2024-09-13] MEDS: NSS (PRESERVATIVE FREE) 10 ML IV (08:39)
[2024-09-13] MEDS: AFRIN NASAL SPRAY 2 SPRAYS NASAL ×2 (08:39→23:09)
--- NOTE | 2024-09-13 09:12 | W.PN.HOSP.TC ---
Addendum entered and electronically signed by Jennie Mcnair MD 09/13/24 14:20:
I saw and evaluated the patient independently. I reviewed the resident�s note and agree with findings and plan as documented by Dr. Pritchett.
GENERAL: well developed, well nourished, male in no apparent distress (lost a significant amt of weight through diuresis from last time I know him)
HEENT: NC/AT--3L O2 NC in place
HEART: regular rate and rhythm, +S1, +S2
LUNGS : clear to auscultation bilaterally
ABDOM: soft, nontender, nondistended, + bowel sounds
EXT: no cyanosis, clubbing, or edema
NEUROLOGIC: grossly intact
Acute on chronic hypoxemic respiratory failure likely secondary to acute on chronic systolic CHF exacerbation with acute on chronic COPD exacerbation and right sided pleural effusion--weights down from 106 kg to 89.5 kg--s/p diuresis--apprec
cards/pulm--s/p chest tube and tPA in chest tube for loculated pleural effusion (removed 09/10)--still requiring nightly BiPAP--may need at home--ECHO with severely dilated right atrium and EF 40%--on IV lasix and metolazone--cultures from pleural
fluid without growth--finished ceftriaxone, doxy
Episode of VT with spontaneous conversion 09/08 --for ICD today--apprec cards--on oral amiodarone--s/p cardiac cath 09/08: No obstructive coronary artery disease. Mid LAD myocardial bridge is present.
Hyponatremia--worsening since admission (despite diuresis, was normal)--workup started (urine Osmolality, Na+, serum osmolality)--possibly SIADH? as appears euvolemic now--agree with renal
Paroxysmal atrial fibrillation on chronic Coumadin therapy--cont metoprolol and verapamil, both with holding parameters--Plan to resume Coumadin after ICD placement, continue Heparin.
Severe MR s/p MV repair via mini thoracotomy 10/2013 at [facility] with mechanical valve--daily INR while on Coumadin, Goal INR 2.5-3.5--cont asa, statin, metoprolol
Anxiety--Continue sertraline
Obstructive sleep apnea on CPAP--might need BiPAP at d/c instead of CPAP
DVT prophylaxis- Heparin
CODE STATUS-- full code
can transfer to tele
Original Note:
Today's Communication/Plan
-
ICD placement today.
Urine Na, Osm,
serum osmo
consult nephrology.
Assessment / Plan
Assessment / Plan
A/P:
# Acute on chronic hypoxemic respiratory failure possibly secondary to below.
# Acute on chronic HFrEF
# Acute COPD exacerbation
# Right sided pleural effusion s/p chest tube placement 09/06, chest tube removal 09/10
-Patient Requiring BiPaP at night time.
-weaned to 3L NC (baseline at 4L NC)
-repeat ECHO with severely dilated right atrium and dilated right ventricle EF 40%,
-IV Lasix 40 BID with metolazone 2.5 mg daily on hold, due to ICD placement today.
-thora labs reviewed, exudative fluid. R sided chest tube was placed due to loculated effusion, but after drainage significantly slowed down, s/p tPA chest tube instillation procedure. chest tube was removed 09/10.
-Pleural fluid culture so far no growth. Cytology Negative for malignant cells. Acid fast Bacilli smear pending.
-Started empiric antibiotics Ceftriaxone, azithromycin changed to doxycycline for right-sided empyema, Has completed course>>
-Continue nocturnal BiPAP and resume CPAP upon discharge; he should discuss transitioning to BiPAP with his private brass molder helper
-Pulmonary following.
#Episode of VT with spontaneous conversion 09/08
-No new episode since then
-Continue PO amiodarone 200 BID
-s/p cardiac cath 09/08: No obstructive coronary artery disease. Mid LAD myocardial bridge is present.
-Card on board, for ICD Thursday 09/13
#Hyponatremia
-Check Urine Osmo, Urine Na, Serum Osmo
-Consult Nephrology
# Paroxysmal atrial fibrillation on chronic Coumadin therapy
-cont metoprolol and verapamil, both with holding parameters
-Plan to resume Coumadin after ICD placement, continue Heparin.
# Severe MR s/p MV repair via mini thoracotomy 10/2013 at [facility] with mechanical valve
-daily INR while on Coumadin, Goal INR 2.5-3.5.
-cont asa, statin, metoprolol
# Anxiety
-Continue sertraline
# Obstructive sleep apnea on CPAP
DVT prophylaxis- Heparin
CODE STATUS-- full code
Anticipated Discharge: 24 - 48 hours
Subjective/Interval History
-
Overnught event: Patient reported symptoms of nausea and vomiting with BiPap use. Resolved after removal of BiPap and Zofran
Objective Data
-
Labs:
Laboratory Results
09/13/24 09/13/24
05:34 05:35
WBC 9.4
Hgb 11.8 L
Hct 34.2 L
Plt Count 309
PT 19.4 H
INR 1.65
APTT 91.7 H
Sodium 127 L
Potassium 3.8
Chloride 81 L
Carbon Dioxide 36 H
BUN 18
Creatinine 0.9
Glucose 121 H
Calcium 9.2
Vital Signs:
Vital Signs
Temp Pulse Resp BP Pulse Ox
98.2 F 110 16 108/92 96
09/12/24 23:04 09/13/24 08:38 09/13/24 07:18 09/13/24 08:38 09/13/24 07:18
I&O
09/12/24 09/13/24 09/14/24
06:59 06:59 06:59
Intake Total 1104 / 1104 250 / 250
Output Total 3750 / 3750 1550 / 1550
Balance -2646 / -2646 -1300 / -1300
Review of Systems
-
All other systems: Reviewed and negative (except as documented)
Physical Exam
-
General: No Apparent Distress
Respiratory: Clear to Auscultation; Negative Wheezes or Rales
Cardiac: S1/S2
GI: Soft, Nontender and Nondistended
Musculoskeletal: No Clubbing, No Cyanosis and No Edema
Neuro: AO x 3
[2024-09-13] MEDS: HEPARIN 25000 UNITS/250 ML IV (09:42)
--- NOTE | 2024-09-13 10:38 | W.ICD.CONTRA ---
Post ICD/PRODUCTION PLANNING SUPERVISOR-D
-
History of WI?: No
LV Function
Left ventricular function study result?: Ejection Fraction >35% - <40%
ACEI/ARB/ARNI
Patient already on ACEI/ARB/ARNI: No
ACEI/ARB/ARNI Contraindication: Hypotension
Beta-Shayy
Patient already on Beta Shayy: Yes
--- NOTE | 2024-09-13 10:48 | W.PN.CARDCBS ---
Today's Communication / Plan
-
Plan is for ICD Friday, 09/13
Impression / Plan
-
.
Primary Boilermaker Assembly And Erection: Dr. Salazar
Impression:
Presentation with SOB, LE edema
Acute hypoxic respiratory failure, requiring BIPAP in ER
Acute on chronic HFrEF, improved
R pleural effusion s/p right CT placement
s/p Ventricular Tachycardia episode w/ unresponsiveness 09/08/2024
PAF
History of AVNRT
Severe MR
s/p MV repair via mini thoracotomy 10/2013 at [facility]
Previously dehisced mitral valve ring status post [facility] [employer] mechanical mitral valve replacement at [facility] in 2013 with redo sternotomy
Paravalvular plug placed at [facility] 07/2016 due to symptomatic worsening paravalvular leak
Chronic coumadin therapy, managed by [facility]
COPD, on 4L NC home O2
HLD
JENNIFER on CPAP
PVCs
Anxiety
ECHO 04/15/23: EF 45 to 50%, mild concentric LVH, stage II diastolic dysfunction, status post mechanical mitral valve prosthesis with peak/mean gradients 19/9 mmHg, no MR, mild to moderate AR, mild TR, PAP 49 mmHg, dilated aorta measuring 4.1 cm.
Echo 09/03/24: LVEF 40%, moderate LVH, dilated RV with reduced RV function, mechanical mitral valve with mean gradient of 5 and no MR. PA pressure 60-65. Ascending aorta 4.3 cm
Echo 09/08/2024: Fair image quality. Left ventricle is dilated. Moderately reduced left ventricular systolic function. Global hypokinesis. Left ventricular ejection fraction is 35-40%. Enlarged right ventricular size. Compared to prior echo from
Sep 03 2024, which was reviewed, findings are similar.
Left heart cath Sep 08 2024:
HEMODYNAMICS : (mmHg)
AO (s/d) : 91/58
LV (s/d) : 94/9
LVEDP : 13
CORONARY FINDINGS
DOMINANCE: Right
LEFT MAIN: The left main artery is a large-caliber vessel which gives rise to the left anterior descending artery and the left circumflex artery. There is minimal luminal irregularities.
LEFT ANTERIOR DESCENDING: The left anterior descending artery is a medium to large caliber vessel which gives off a high rising diagonal as it courses through the anterior interventricular groove and wraps around the apex. There is a mid LAD
myocardial bridge noted but otherwise no obstructive coronary artery disease.
CIRCUMFLEX: The left circumflex artery is a medium caliber vessel which gives rise to 1 major obtuse marginal branch. There is minimal luminal irregularities.
RIGHT CORONARY ARTERY: The right coronary artery is a large-caliber, dominant vessel which gives rise to the right posterior descending artery and the right posterolateral system. There is minimal luminal irregularities.
CONCLUSIONS
1. No obstructive coronary artery disease.
2. Mid LAD myocardial bridge is present.
3. Near normal LVEDP at 13 mmHg.
Plan:
Presented from [facility] office w/ worsening SOB and hypoxia, requiring BiPAP in ER. Admitted with acute heart failure.
Diuresed with IV lasix and metolazone. Weight down over 30 lbs this admit.
wt still coming down off diuretics
Cr stable.
Transition to oral lasix 80 mg BID
s/p episode of VT with unresponsiveness Oct 16.
IV amiodarone transitioned to oral Amiodarone 200 mg BID
No further VT on tele
Echo with stable EF, 35-40%.
Left heart cath Oct 16 with no obstructive CAD.
Keep K>4, mag >2.
Plan is for ICD Friday, 09/13; Info has been provided to patient on ICD
Remains in persistent atrial fibrillation on telemetry.
Continue Toprol 50mg BID and Amiodarone 200mg BID.
Continues on heparin bridge. Did not receive coumadin Sep 12.
Resume coumadin after ICD
Hx MVR, IV heparin to coumadin bridge.
Verapamil stopped due to hypotension. PRN midodrine new this admission.
Pt is on chronic O2 as OP.
Outpt follow up with Dr Salazar.
Progress Note - Boilermaker Assembly And Erection
Subjective
Date of Service: September 13, 2024
Pt seen and examined. No cp or dyspnea
Objective
Labs:
09/13/24 05:35
09/13/24 05:34
Labs
Hgb 11.8 g/dL (13.0-18.0) L 09/13/24 05:35
Hct 34.2 % (39.0-52.0) L 09/13/24 05:35
Plt Count 309 10^3/uL (130-400) 09/13/24 05:35
PT 19.4 Sec (11.4-14.6) H 09/13/24 05:34
INR 1.65 09/13/24 05:34
APTT 91.7 Sec (23.4-35.0) H 09/13/24 05:34
Sodium 127 mmol/L (135-145) L 09/13/24 05:34
Potassium 3.8 mmol/L (3.5-5.1) 09/13/24 05:34
BUN 18 mg/dl (9-20) 09/13/24 05:34
Creatinine 0.9 mg/dL (0.7-1.3) 09/13/24 05:34
Glucose 121 mg/dl (70-99) H 09/13/24 05:34
Vital Signs and I&O:
Vital Signs
Temp Pulse Resp BP Pulse Ox
98.2 F 103 22 100/79 96
09/12/24 23:04 09/13/24 09:00 09/13/24 09:00 09/13/24 09:00 09/13/24 09:00
Vital Signs
Temp Pulse Resp BP Pulse Ox
98.2 F 103 22 100/79 96
09/12/24 23:04 09/13/24 09:00 09/13/24 09:00 09/13/24 09:00 09/13/24 09:00
Intake & Output
09/11/24 09/12/24 09/13/24 09/14/24
06:59 06:59 06:59 06:59
Intake Total 115 / 115 1104 / 1104 250 / 250
Output Total 2575 / 2575 3750 / 3750 1550 / 1550 400 / 400
Balance -2460 / -2460 -2646 / -2646 -1300 / -1300 -400 / -400
Physical Exam
Physical Exam
General: No acute distress, AAOX3
Neck: Negative JVD
Heart: Irregularly irregular, Negative S3 positive S1/S2, Negative S4, No murmur
Lungs: CTA b/l, negative wheezes/rales/rhonchi
Abd: Positive BS, NT/ND, neg rebound/rigidity/guarding
Ext: Negative cyanosis/clubbing/edema
Neuro: nonfocal
--- NOTE | 2024-09-13 12:12 | PTCARENOTE ---
Assumed care for patient during the day from the previous RN. Pt has heparin at 1200 units/hr. Pt at therapeutic range see orders. Pt AAOx3 anxious at times. Pt sit on the edge of the bed. Pt A-fib on tele. Pt on 2L NC respirations even and
unlabored. Pt remained NPO for AICD. Pt appears to be resting comfortably in bed. Call bowden is within reach.
--- NOTE | 2024-09-13 15:30 | PTCARENOTE ---
Pt transported to Personal Injury Specialist in the bed. Collected all belongings.
--- NOTE | 2024-09-13 16:06 | ITS.CL.ICD ---
Contingents Supervisor - ICD
Implantable Cardioverter Defibrillator
Procedure Report:
ICD IMPLANTATION REPORT
Date of Procedure: September 13, 2024
Primary Care Provider: Dr Sunday Remy
Primary Brewmaster: Dr. Martinez Salazar
pool table operator: Sunday Lynne M.D.
PROCEDURES:
1. Right Heart Cath, 2. BiV ICD Implant
INDICATION FOR PROCEDURE:
1: Sustained hemodynamically unstable ventricular tachycardia
2. HFrEF with LVEF 35% despite guideline directed medical therapy at maximally tolerated doses
3: Very wide QRS at 160 ms (RBBB) and with initiation of amiodarone as well as need for BB for GDMT there is concern he may require RV pacing support therefor there will be attempt at cardiac resynchronization.
4: Cardioversion of atrial fibrillation
HISTORY: Please refer to office history and physical exam as well as today's progress note.
After informed consent was obtained, a 'time out' was called and confirmed. Patient understands this is a high bleeding risk procedure given his need for ongoing oral anticoagulation in the setting of mechanical mitral valve and atrial
fibrillation. INR fell below 2 on 09/07 and heparin was initiated on 09/08. He has been on IV heparin with recent reinitiation of warfarin to obtain therapeutic INR. He has noted to have paroxysmal atrial fibrillation. I reviewed an EKG from
May 2023 which found sinus rhythm. Given clinical worsening of heart failure and presence of atrial fibrillation as well as recent initiation of amiodarone (although this was primarily done for VT) we will plan for cardioversion today as well as
restoring sinus rhythm should help in management of his heart failure.
The patient was prepped and draped in a sterile fashion.
Planned Right Heart Cath
Hemodynamics:
RA: 17 mmHg, RV: 75/8 mmHg, PA: 75/36 mmHg,
PCWP: 35 mmHg, PA sat:62 %
CO:5.7 L/min, CI: 2.7
Lidocaine with epi was used for local anesthesia. Central venous access was obtained via axillary venipuncture. An incision was made along the left chest and a pre-pectoral pocket was formed. Using a Seldinger technique and peel-away sheaths, the
pacing leads were placed under fluoroscopic guidance. Once testing (see below) showed adequate and stable function, the leads were secured using the suture sleeves. The pocket was liberally irrigated with antibiotic solution. The leads were
connected to the generator header and the leads and generator were placed within the pocket. Fluoroscopy confirmed stable lead position. The pocket was closed in the typical fashion.
Antibiotic pouch was used
FLUOROSCOPY:
Fluoroscopy was used to guide lead placement.
CARDIOVERSION
Planned electrical cardioversion was performed.
200 J converted the rhythm from atrial fibrillation to atrial flutter/atrial tachycardia
360 J restored sinus rhythm for several seconds then atrial flutter/atrial tachycardia alternating with atrial fibrillation resulted
IMPLANTS:
ICD: Medtronic [id number], SN [id number] , Left Pectoral
RA: Medtronic 5076, SN [id number], right atrial appendage
RV: Medtronic 6935M, SN [id number], mid septal
LBB Pacing: Medtronic 3830 , [id number], Interventricular septum at LBB
DEVICE TESTING:
Sensing: RA 1.25 (atrial tachycardia), RV 4.8 mV
Capture: RA (AT), RV 0.5 V @ 0.4ms, LV 0.75 V@ 0.4ms
Ohms: RA 1100, RV 400, LV 1120
Induction: Shock on T
FINAL PROGRAMMING:
Raúl Pacing: DDDR 50-130 with mode switch on -> VVIR
Tachy parameters:
VF: 188 bpm, ATP X 1, Shock
FVT: 165, ATP X 1, Shock
COMPLICATIONS:
None
CONCLUSIONS:
1. Right heart hemodynamics demonstrate:
Marked filling pressures with pulmonary hypertension in the setting of markedly elevated pulmonary capillary wedge pressure
2. Cardioversion of AF to SR but rapid resumption of atrial tachycardia/atrial fibrillation
3. Normal function of ICD and leads at implant testing.
RECOMMENDATIONS:
- Continue heparin bridge to warfarin anticoagulation
Received 5 mg of warfarin last night (09/12/24), will give 5 mg of warfarin tonight then need to dose daily based on INR values (target 2.5-3.5)
IV heparin ordered to be resumed at 11 PM tonight
Maintain pressure dressing x 48 hours
- Continue oral amiodarone both for suppression of ventricular arrhythmias but also to attempt to obtain and maintain sinus rhythm
Consider electrical cardioversion of atrial fibrillation in 3-4 weeks
- He remains markedly volume overloaded (PA: 75/36 mmHg with PCWP: 35 mmHg)
Patient was given 40 mg of IV Lasix during today's procedure
Patient previously was on IV Lasix, recently stopped
Will resume IV Lasix at 40 mg IV twice daily but it is possible he may need dose adjustments to achieve effective diuresis
- Telemetry monitoring, CXR
Copy: Dr. Martinez Salazar
--- NOTE | 2024-09-13 16:23 | CM ---
Patient with Dx acute on chronic hypercapnic hypoxemic respiratory failure, CHF, COPD, R pleural effusion, episode of VTach. Plan ICD today. O2 2L. Receiving IV Lasix, IV Abx, Heparin gtt. PT 09/10 & OT 09/09 recommend HH.
Patient previously declined VN.
Plan watch for home O2 needs.
Plan home.
[2024-09-13 16:45] LABS: Osmolality Urine 280 mOsm/kg (300-900)
--- NOTE | 2024-09-13 16:46 | W.PN.UPDATE ---
Update Note
Progress Note Update
attempted to see but pt was in laboratory sampler
will see him in am
w/u pending for hyponatremia per primary
[2024-09-13] MEDS: COUMADIN 5 MG PO (18:34)
--- NOTE | 2024-09-13 19:10 | PTCARENOTE ---
Received patient at change of shift. Patient awake, alert, and oriented sitting in bed. Right radial site clean, dry, and intact with ecchymosis. Soft with no hematoma. Chest tube sites open to air, intact. Left upper chest wall from AICD placement
clean, dry, and intact. BP 112/55, V-paced 90s, 92% on 3 L. Discussed when patient can end bed rest and care plan for the night. Patient verbalized understanding. Call bowden within reach.
[2024-09-13 19:55] LABS: Urine Sodium 18 mmol/L (30-90)
[2024-09-13] MEDS: CORDARONE 103 MG IV (20:38)
[2024-09-13 20:47] LABS: Blood Urea Nitrogen 17 mg/dl (9-20); Calcium 9.1 mg/dl (8.4-10.2); Carbon Dioxide 33 mmol/L (22-30); Chloride 83 mmol/L (98-107); Estimated Creatinine Clearance 83 ml/min; Glucose 186 mg/dl (70-99); Magnesium 1.6 mg/dl (1.6-2.3); Potassium 4.1 mmol/L (3.5-5.1); Sodium 128 mmol/L (135-145); eGFR > 60.00
[2024-09-13 20:48] LABS: Osmolality Serum 274 mOsm/kg (275-300)
[2024-09-13] MEDS: MAGNESIUM SULFATE 50 IV (21:30)
[2024-09-13] MEDS: CRESTOR 5 MG PO (22:30)
[2024-09-13] MEDS: MORPHINE SULFATE 2 MG IV (22:31)
[2024-09-13] MEDS: ANCEF 5 IV (22:33)
--- NOTE | 2024-09-13 23:24 | PTCARENOTE ---
Patient alerted V-Tach on monitor. Patient was asymptomatic with no chest pain sitting in bed, awake, alert, and oriented. BP 89/58, HR 135, oxygen increased to 6L. EKG completed--Wide QRS tachycardia, right bundle branch block, left anterior
fascicular block-- abnormal EKG. RN administered PO Amiodarone and Toprolol -- see JAN. Discussed plan with Ed Jackson, CV PA, and Dr. Morales. Stat labs for Mag and K were ordered. 150 IV Bolus of Amiodarone and 2G IV Magnesium ordered. Patient's
rhythm converted to NSR w/ 1st degree block @ 20:46, HR 96.
[2024-09-14] VITALS (15 sets, daily range): BP systolic 80–116; BP diastolic 58–74; PULSE 2–83; O2SAT 99; BMI 28.2
[2024-09-14 05:40] LABS: Hematocrit 33.6 % (39.0-52.0); Hemoglobin 11.4 g/dL (13.0-18.0); Mean Corp Hgb Conc. 33.9 g/dL (33.0-37.0); Mean Corpuscular Hgb 28.8 pg (27.0-31.0); Mean Corpuscular Volume 84.8 fL (80.0-94.0); Mean Platelet Volume 9.2 fL (7.4-10.4); Platelet Count 294 10^3/uL (130-400); Red Blood Cell Count 3.96 10^6/uL (4.70-6.10); Red Cell Dist. Width 15.8 % (11.5-14.5); White Blood Cell Count 9.2 10^3/uL (4.8-10.8)
[2024-09-14] MEDS: MORPHINE SULFATE 2 MG IV ×2 (05:41→21:13)
[2024-09-14] MEDS: ANCEF 5 IV (05:41)
[2024-09-14 05:45] LABS: INR 1.84; PT 21.1 Sec (11.4-14.6)
[2024-09-14 05:47] LABS: APTT 95.9 Sec (23.4-35.0)
[2024-09-14 06:02] LABS: Blood Urea Nitrogen 15 mg/dl (9-20); Calcium 9.2 mg/dl (8.4-10.2); Carbon Dioxide 38 mmol/L (22-30); Chloride 84 mmol/L (98-107); Estimated Creatinine Clearance 94 ml/min; Glucose 112 mg/dl (70-99); Sodium 129 mmol/L (135-145); eGFR > 60.00
[2024-09-14] MEDS: XOPENEX 1.25 MG INHALANT SOLUTION INH ×3 (07:19→19:21)
[2024-09-14] MEDS: ATROVENT NEBULES 0.5 MG INH ×3 (07:19→19:21)
--- NOTE | 2024-09-14 07:43 | W.PN.HOSP.TC ---
Addendum entered and electronically signed by Jennie Mcnair MD 09/14/24 16:21:
I saw and evaluated the patient independently. I reviewed the resident�s note and agree with findings and plan as documented by Dr. Pepe.
GENERAL: well developed, well nourished, male in no apparent distress (lost a significant amt of weight through diuresis from last time I know him)
HEENT: NC/AT--6L O2 NC in place
HEART: regular rate and rhythm, +S1, +S2
LUNGS : clear to auscultation bilaterally
ABDOM: soft, nontender, nondistended, + bowel sounds
EXT: no cyanosis, clubbing, or edema
NEUROLOGIC: grossly intact
Acute on chronic hypoxemic respiratory failure likely secondary to acute on chronic systolic CHF exacerbation with acute on chronic COPD exacerbation and right sided pleural effusion--weights down from 106 kg to 89 kg--s/p diuresis--apprec
cards/pulm--s/p chest tube and tPA in chest tube for loculated pleural effusion (removed 09/10)--still requiring nightly BiPAP--may need at home--ECHO with severely dilated right atrium and EF 40%--on IV lasix and metolazone--cultures from pleural
fluid without growth--finished ceftriaxone, doxy
Episode of VT with spontaneous conversion 09/08 --s/p ICD 09/13--had another episode of V.tach night of 09/13-09/14 likely due to hypomagnesemia--apprec cards--on oral amiodarone--s/p cardiac cath 09/08: No obstructive coronary artery disease. Mid
LAD myocardial bridge is present.
Hyponatremia--worsening since admission (despite diuresis, was normal)--workup started (urine Osmolality, Na+, serum osmolality)--apprec renal-- w/u consistent with cardiorenal/volume overload--cont diuresis
Paroxysmal atrial fibrillation on chronic Coumadin therapy--cont metoprolol and verapamil, both with holding parameters--Plan to resume Coumadin after ICD placement, continue Heparin.
Severe MR s/p MV repair via mini thoracotomy 10/2013 at [facility] with mechanical valve--daily INR while on Coumadin, Goal INR 2.5-3.5--cont asa, statin, metoprolol
Anxiety--Continue sertraline
Obstructive sleep apnea on CPAP--might need BiPAP at d/c instead of CPAP
DVT prophylaxis- Heparin
CODE STATUS-- full code
Original Note:
Today's Communication/Plan
-
.
Assessment / Plan
Assessment / Plan
A/P:
# Acute on chronic hypoxemic respiratory failure possibly secondary to below.
# Acute on chronic HFrEF s/p Medtronic ICD placement 09/13/24
# Acute COPD exacerbation
# Right sided pleural effusion s/p chest tube placement 09/06, chest tube removal 09/10
-Patient Requiring BiPaP at night time.
-now on to 6L NC (baseline at 4L NC) Wean as tolerated.
-repeat ECHO with severely dilated right atrium and dilated right ventricle EF 40%,
-IV Lasix dosage increased to 80mg IV BID after ICD placement(PCWP: 35 mmHg at time of procedure), with metolazone 2.5 mg daily on hold.
-thora labs reviewed, exudative fluid. R sided chest tube was placed due to loculated effusion, but after drainage significantly slowed down, s/p tPA chest tube instillation procedure. chest tube was removed 09/10.
-Pleural fluid culture so far no growth. Cytology Negative for malignant cells. Acid fast Bacilli smear pending.
-Completed antibiotics course.
-Continue nocturnal BiPAP and resume CPAP upon discharge; he should discuss transitioning to BiPAP with his private denture model maker
#Episode of VT with spontaneous conversion 09/08
-No new episode since then
-Continue PO amiodarone 200 BID
-s/p cardiac cath 09/08: No obstructive coronary artery disease. Mid LAD myocardial bridge is present.
#Hyponatremia
-Urine osmo 280, Urine Na 18 prerenal/cardiorenal etiology
-Nephrology input appreciated.
-sodium improving, cont lasix
-samsca prn
# Paroxysmal atrial fibrillation on chronic Coumadin therapy
-cont metoprolol and verapamil, both with holding parameters
-Continue heparin bridge to warfarin anticoagulation.
-Monitor PT/INR
# Severe MR s/p MV repair via mini thoracotomy 10/2013 at [facility] with mechanical valve
-daily INR while on Coumadin(on hold), Goal INR 2.5-3.5.
-cont asa, statin, metoprolol
# Anxiety
-Continue sertraline
DVT prophylaxis- Heparin
CODE STATUS-- full code
Anticipated Discharge: > 48 hours
Subjective/Interval History
-
Patient seen at bedside. He denies chest pain, he denies palpitation. He denies nausea, denies vomiting
Objective Data
-
Labs:
Laboratory Results
09/13/24 09/14/24 09/14/24
20:16 05:20 11:20
WBC 9.2
Hgb 11.4 L
Hct 33.6 L
Plt Count 294
PT 21.1 H
INR 1.84
APTT 95.9 H Pending
Sodium 128 L 129 L
Potassium 4.1 4.0
Chloride 83 L 84 L
Carbon Dioxide 33 H 38 H
BUN 17 15
Creatinine 0.9 0.8
Glucose 186 H 112 H
Calcium 9.1 9.2
Vital Signs:
Vital Signs
Temp Pulse Resp BP Pulse Ox
97.5 F 72 16 114/74 98
09/14/24 07:02 09/14/24 07:27 09/14/24 07:27 09/14/24 05:09 09/14/24 07:27
I&O
09/13/24 09/14/24 09/15/24
06:59 06:59 06:59
Intake Total 250 / 250 293.7 / 293.7
Output Total 1550 / 1550 1650 / 1650
Balance -1300 / -1300 -1356.3 / -1356.3
Review of Systems
-
All other systems: Reviewed and negative (Except as documented)
Physical Exam
-
General: No Apparent Distress
Respiratory: Crackles (moderate)
Cardiac: Regular Rhythm and S1/S2
GI: Soft, Nontender and Nondistended
Musculoskeletal: Other (trace edema b/l)
[2024-09-14] MEDS: ZOLOFT 100 MG PO (08:00)
[2024-09-14] MEDS: LASIX 40 MG IV ×2 (08:00→17:37)
[2024-09-14] MEDS: TOPROL XL 50 MG PO ×2 (08:00→21:12)
[2024-09-14] MEDS: ASPIR LOW (ENTERIC COATED) 81 MG PO (08:00)
[2024-09-14] MEDS: PACERONE 200 MG PO ×2 (08:00→21:11)
[2024-09-14] MEDS: PROTONIX 40 MG PO (08:00)
[2024-09-14] MEDS: AFRIN NASAL SPRAY 2 SPRAYS NASAL ×2 (08:12→21:10)
--- NOTE | 2024-09-14 09:34 | W.PN.CARDCBS ---
Addendum entered and electronically signed by Thom Engle MD 09/14/24 11:09:
I saw and examined the patient.
The NURSING SECRETARY or PA's note was reviewed and I agree with the note.
Comment: General: Well developed, well nourished in NAD.
Neck: Supple, no JVD, HJR, carotids +2 B/L, no bruits bilaterally.
Heart: Non displaced PMI, RRR, no murmurs, No S3, S4, no rubs.
Lungs: Scattered rhonchi
Left AICD dressings noted
Extremities: No clubbing, cyanosis or edema bilaterally.
Neuro: Grossly nonfocal, awake, alert and oriented x3.
Will continue to treat for CHF given elevated wedge pressure at time of procedure on 09/13. Will increase IV Lasix. No further VT. Continue amiodarone. Continue IV heparin to Coumadin. INR 1.8 on 09/14.
Original Note:
Today's Communication / Plan
-
IV diuresis, consider increasing dose of IV lasix
IV heparin to coumadin
wean supp O2 as able
follow on tele. continue po amio
Impression / Plan
-
.
Primary Food Sanitarian: Dr. Salazar
Impression:
Presentation with SOB, LE edema
Acute hypoxic respiratory failure, requiring BIPAP in ER
Acute on chronic HFrEF
R pleural effusion s/p right CT placement, removed 09/10/24
s/p Ventricular Tachycardia episode w/ unresponsiveness 09/08/2024
s/p Medtronic ICD placement 09/13/24
PAF
History of AVNRT
Severe MR
s/p MV repair via mini thoracotomy 10/2013 at [facility]
Previously dehisced mitral valve ring status post [facility] mechanical mitral valve replacement at [facility] in 2013 with redo sternotomy
Paravalvular plug placed at [facility] 07/2016 due to symptomatic worsening paravalvular leak
Chronic coumadin therapy, managed by [facility]
COPD, on 4L NC home O2
HLD
JENNIFER on CPAP
PVCs
Anxiety
ECHO 04/15/23: EF 45 to 50%, mild concentric LVH, stage II diastolic dysfunction, status post mechanical mitral valve prosthesis with peak/mean gradients 19/9 mmHg, no MR, mild to moderate AR, mild TR, PAP 49 mmHg, dilated aorta measuring 4.1 cm.
Echo 09/03/24: LVEF 40%, moderate LVH, dilated RV with reduced RV function, mechanical mitral valve with mean gradient of 5 and no MR. PA pressure 60-65. Ascending aorta 4.3 cm
Echo 09/08/2024: Fair image quality. Left ventricle is dilated. Moderately reduced left ventricular systolic function. Global hypokinesis. Left ventricular ejection fraction is 35-40%. Enlarged right ventricular size. Compared to prior echo from
Sep 03 2024, which was reviewed, findings are similar.
Left heart cath Sep 08 2024:
HEMODYNAMICS : (mmHg)
AO (s/d) : 91/58
LV (s/d) : 94/9
LVEDP : 13
CORONARY FINDINGS
DOMINANCE: Right
LEFT MAIN: The left main artery is a large-caliber vessel which gives rise to the left anterior descending artery and the left circumflex artery. There is minimal luminal irregularities.
LEFT ANTERIOR DESCENDING: The left anterior descending artery is a medium to large caliber vessel which gives off a high rising diagonal as it courses through the anterior interventricular groove and wraps around the apex. There is a mid LAD
myocardial bridge noted but otherwise no obstructive coronary artery disease.
CIRCUMFLEX: The left circumflex artery is a medium caliber vessel which gives rise to 1 major obtuse marginal branch. There is minimal luminal irregularities.
RIGHT CORONARY ARTERY: The right coronary artery is a large-caliber, dominant vessel which gives rise to the right posterior descending artery and the right posterolateral system. There is minimal luminal irregularities.
CONCLUSIONS
1. No obstructive coronary artery disease.
2. Mid LAD myocardial bridge is present.
3. Near normal LVEDP at 13 mmHg.
Plan:
-Presented from [facility] office w/ worsening SOB and hypoxia, requiring BiPAP in ER. Admitted with acute heart failure.
-Diuresed with IV lasix and metolazone. Weight down over 30 lbs this admit, however by [facility] at time of ICD placement 09/13 wedge was still 35. continue IV diuresis, currently on 40mg BID, will likely increase dose pending response
-follow hypoNa with diuresis
-wean supp O2 as able. chronically on 4L NC, will need eval for home O2 prior to DC
-EF 35-40% by echo this admission. continue toprol. he cannot afford SGLT2 inhibitors. hypotension currently limiting addition of madhu/arb/arni/aldactone.
-[facility] 09/08 without obstructive CAD
-VT episode 09/08 s/p Medtronic ICD 09/13/24
-K/mag stable
-continue pressure dressing for additional 24 hours
-continue IV heparin to coumadin. will give 5mg coumadin again tonight. normally on 3.5mg QPM as OP. goal INR 2.5-3.5, managed by [facility] coumadin clinic
-had ~1 hour overnight of afib with aberrancy. currently asensed vpaced rhythm. was given IV amiodarone bolus. continue po amiodarone 200mg BID.
-verapamil stopped due to hypotension and reduced EF.
-he previously declined VN however feel he would benefit from this. will have CM assess again.
Progress Note - Food Sanitarian
Subjective
Date of Service: September 14, 2024
denies SOB. denies palpitations at time of afib last evening
Objective
Labs:
09/14/24 05:20
09/14/24 05:20
Labs
Hgb 11.4 g/dL (13.0-18.0) L 09/14/24 05:20
Hct 33.6 % (39.0-52.0) L 09/14/24 05:20
Plt Count 294 10^3/uL (130-400) 09/14/24 05:20
PT 21.1 Sec (11.4-14.6) H 09/14/24 05:20
INR 1.84 09/14/24 05:20
APTT 95.9 Sec (23.4-35.0) H 09/14/24 05:20
Sodium 129 mmol/L (135-145) L 09/14/24 05:20
Potassium 4.0 mmol/L (3.5-5.1) 09/14/24 05:20
BUN 15 mg/dl (9-20) 09/14/24 05:20
Creatinine 0.8 mg/dL (0.7-1.3) 09/14/24 05:20
Glucose 112 mg/dl (70-99) H 09/14/24 05:20
Vital Signs and I&O:
Vital Signs
Temp Pulse Resp BP Pulse Ox
97.5 F 72 16 114/74 98
09/14/24 07:02 09/14/24 07:27 09/14/24 07:27 09/14/24 05:09 09/14/24 07:27
Vital Signs
Temp Pulse Resp BP Pulse Ox
97.5 F 72 16 114/74 98
09/14/24 07:02 09/14/24 07:27 09/14/24 07:27 09/14/24 05:09 09/14/24 07:27
Intake & Output
09/12/24 09/13/24 09/14/24 09/15/24
07:59 07:59 07:59 07:59
Intake Total 1104 / 1104 250 / 250 293.7 / 293.7
Output Total 3750 / 3750 1550 / 1550 1650 / 1650
Balance -2646 / -2646 -1300 / -1300 -1356.3 / -1356.3
Physical Exam
Physical Exam
GEN: No distress, awake, alert, oriented x3. sitting in chair. on supp O2
HEENT: supple, anicteric, mmm, eomi
LUNGS: Decreased RLB, no wheezes
CV: Reg, S1/S2, no murmur
ABD: soft, BS+, NT/ND
EXT: No cyanosis, clubbing. trace edema of B/L L
NEURO: Gross non-focal
SKIN: Warm, pink, dry. No rash
[2024-09-14 12:15] LABS: APTT 104.5 Sec (23.4-35.0)
--- NOTE | 2024-09-14 12:52 | W.CON.NEPH ---
Consultation
-
Date/Time Consultation Requested: 09/13/24 1406
Date/Time Consultation Performed: 09/14/24 1230
Requesting Provider: tami Romero
Performing Provider: Meg Gonzales
Reason for Consultation: hypoantremia
Medical History
-
Chief Complaint: SOB
History of Present Illness:
64-year-old man with history of heart failure with reduced ejection fraction 40% on lasix, paroxysmal atrial fibrillation on Verapamil, chronic anticoagulation on warfarin, COPD on 4 L of oxygen chronically, inhalers, GERD on PPI, presented to the
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 He started on IV diuresis with lasix and Metolazone(on hold since 09/09). he also noted to have multiloculated right pleural effusion
suspected to be parapneumonic ravinder s/p chest tube placed by IR on 09/06/2024 and removed on 09/10. Lost over 30lbs of wt. He also noted to have symptomatic VT, subsequently had LHC shows no obst CAD, and LVEDP was 13 on 09/08. He underwent ICD
placement 09/13, RHC shows PCWP of 33. His sodium on admit was 138 and slowly decreased to 127 on 09/12, since no further improvement nephrology consulted. This am sodium up at 129 after increasing lasix. He c/o intermittent dizziness but not
frequent. BP have been soft range over a year now. No n/v. no dysuria. No abd pain.
Past Medical History
SVT, severe mitral regurgitation, mitral valve disorder, essential hypertension, PVCs, hyperlipidemia, mitral valve prolapse, paroxysmal atrial fibrillation on chronic anticoagulation, GERD, COPD, home oxygen 4 L NC
Past Surgical History: Other (Mitral valve replacement 11/02/2014)
Social History
Tobacco: Non-Smoker
Alcohol: None
Drug: None
Living: Alone
Family History
Breast cancer, cervical cancer in mother,
Hypertension (Father)
no CKD
Allergies / Home Medications
Allergy/AdvReac Type Severity Reaction Status Date / Time
No Known Allergies Allergy Verified 09/03/24 11:36
�Medication �Instructions �Recorded �Confirmed �Type
aspirin 81 mg tablet,delayed 81 mg PO DAILY Blood Clot 10/10/14 09/03/24 History
release Prevention/Tx
metoprolol succinate 100 mg 150 mg PO BID Blood Pressure 11/25/17 09/03/24 History
tablet,extended release 24 hr
sertraline 50 mg tablet 100 mg PO DAILY depression/anxiety 06/05/21 09/03/24 History
verapamil 120 mg tablet,extended 120 mg PO DAILY Blood Pressure 06/05/21 09/03/24 History
release
verapamil 120 mg tablet,extended 240 mg PO HS Blood Pressure 06/05/21 09/03/24 History
release
acetaminophen 500 mg tablet 1,000 mg PO Q6HPRN PRN mild pain 09/03/24 09/03/24 History
(Tylenol Extra Strength)
albuterol sulfate 90 mcg/actuation 2 puff inhalation R Q4HPRN PRN sob 09/03/24 09/03/24 History
aerosol inhaler
arformoterol 15 mcg/2 mL solution 2 ml inhalation R BID 09/03/24 09/03/24 History
for nebulization Lung/Breathing Issues
budesonide 0.5 mg/2 mL suspension 0.5 mg inhalation R BID 09/03/24 09/03/24 History
for nebulization Lung/Breathing Issues
furosemide 80 mg tablet 80 mg PO BID Fluid 09/03/24 09/03/24 History
Retention/Swelling
omeprazole 20 mg capsule,delayed 20 mg PO DAILY Gastrointestinal 09/03/24 09/03/24 History
release Issue
rosuvastatin 5 mg tablet 5 mg PO HS High Cholesterol 09/03/24 09/03/24 History
valacyclovir 1 gram tablet 1,000 mg PO HS Infection 09/03/24 09/03/24 History
warfarin 1 mg tablet 3.5 mg PO QPM Blood Clot 09/03/24 09/03/24 History
Prevention/Tx
Review of Systems
-
All complete 12 point ROS have been inquired and found negative other than stated in HPI
Physical Exam
Vital Signs
Vital Signs
Temp Pulse Resp BP Pulse Ox
97.5 F 87 16 97/64 98
09/14/24 07:02 09/14/24 12:00 09/14/24 07:27 09/14/24 11:08 09/14/24 07:27
Lab Results
WBC 9.2 10^3/uL (4.8-10.8) 09/14/24 05:20
RBC 3.96 10^6/uL (4.70-6.10) L 09/14/24 05:20
Hgb 11.4 g/dL (13.0-18.0) L 09/14/24 05:20
Hct 33.6 % (39.0-52.0) L 09/14/24 05:20
Plt Count 294 10^3/uL (130-400) 09/14/24 05:20
Sodium 129 mmol/L (135-145) L 09/14/24 05:20
Potassium 4.0 mmol/L (3.5-5.1) 09/14/24 05:20
Chloride 84 mmol/L (98-107) L 09/14/24 05:20
Carbon Dioxide 38 mmol/L (22-30) H 09/14/24 05:20
BUN 15 mg/dl (9-20) 09/14/24 05:20
Creatinine 0.8 mg/dL (0.7-1.3) 09/14/24 05:20
eGFR > 60.00 09/14/24 05:20
Glucose 112 mg/dl (70-99) H 09/14/24 05:20
Calcium 9.2 mg/dl (8.4-10.2) 09/14/24 05:20
Bve-W-Zyhfbzhrnpr Pept 1490 pg/ml 09/05/24 04:54
Albumin 3.8 g/dl (3.5-5.0) 09/05/24 04:54
Abnormal Lab Results
09/13/24 09/13/24 09/14/24
03:48 20:16 05:20
RBC 3.96 L
Hgb 11.4 L
Hct 33.6 L
RDW 15.8 H
PT 21.1 H
APTT 95.9 H
Sodium 128 L 129 L
Chloride 83 L 84 L
Carbon Dioxide 33 H 38 H
Glucose 186 H 112 H
Serum Osmolality 274 L
Urine Osmolality 280 L
Urine Sodium 18 L
09/14/24
11:52
RBC
Hgb
Hct
RDW
PT
APTT 104.5 H
Sodium
Chloride
Carbon Dioxide
Glucose
Serum Osmolality
Urine Osmolality
Urine Sodium
CXR'
IMPRESSION:
Left chest wall pacemaker/defibrillator with leads projecting over the right atrium and right ventricle.
There is decreased, small right pleural effusion with improved aeration of the right lower lung. Interval removal of the right lower lung pigtail catheter. No pneumothorax.
Physical Exam
General: Awake, Alert, Oriented, AOx3, No Distress and Nontoxic
HEENT: EOMI, Anicteric and Neck Supple
Respiratory: Normal Excursion, Nonlabored Respirations and Other (decreased BS bilat )
Cardiac: S1/S2 and Regular Rate/Rhythm
Breast: Deferred by me
Abdomen: Soft and Nontender
Genito-urinary: Clear Urine
Musculoskeletal: No Cyanosis and Edema (trace to 1+)
Skin: No Rash
Neuro: Nonfocal/Grossly Intact
Psych: Mood/afflect pleasant, Insight/judgement good and Appropriate
Data Reviewed
-
Radiology: Report Reviewed by me
Labs: Labs Reviewed by me and Discussed with Patient
Assessment/Plan
-
IMP:
Acute on chronic hypoxemic respiratory failure
Acute on chronic systolic CHF exacerbation
Acute on chronic COPD exacerbation
Right sided pleural effusion-s/p chest tube and tPA in chest tube for loculated pleural effusion (removed 09/10)
Episode of VT with spontaneous conversion 09/08 s/p ICD 09/13
Hyponatremia
Paroxysmal atrial fibrillation on chronic Coumadin therapy
Severe MR s/p MV repair via mini thoracotomy 10/2013 at [facility] with mechanical valve
Anxiety
Obstructive sleep apnea on CPAP
Plan:
A/w SOB, acute resp failure, CHF, COPD
Evolving hyponatremia-sodium normal on admit
suspect hypervolemic given high PCWP of 35 on 09/13
U osmo 280, U na 18-consists with prerenal/cardiorenal
sodium is improving, cont lasix per cards
samsca prn
Bp soft with out meds , consider midodrine support
maintain FR 48 ounces/day
monitor worsening met alkalosis on diuresis, prn diamox
d/w pt
[2024-09-14] MEDS: ProAmatine 5 MG PO ×2 (13:20→18:52)
[2024-09-14] MEDS: HEPARIN 25000 UNITS/250 ML IV (16:12)
--- NOTE | 2024-09-14 16:12 | CM ---
spoke with pt in room, he said he was not interested in VN. however [facility] has sent referral to [facility]- will address with pt again tomorrow, pt stated he will be staying with his sister for a week after dc. hedid not qualify for rehab per PT/OT
notes.
[2024-09-14] MEDS: COUMADIN 5 MG PO (17:37)
[2024-09-14] MEDS: CRESTOR 5 MG PO (21:11)
--- NOTE | 2024-09-14 23:31 | PTCARENOTE ---
Received patient at change of shift. Patient awake, alert, and oriented sitting in the chair. Heparin running into PICC at 1200 units/hr. Patient c/o achiness around surgical site-- clean, dry, and intact-- no swelling/hematoma. Verbalized not
wanting pain medication. BP 84/66, V-paced 80s, 100% on 4 L NC. Discussed plan of care for the night. Patient verbalized understanding. Call bowdne within reach.
[2024-09-15] VITALS (8 sets, daily range): BP systolic 87–102; BP diastolic 58–66; PULSE 2–72; BMI 27.9
[2024-09-15 04:33] LABS: % Eosinophils 7.7 % (0-6); % Immature Granulocytes 0.5 % (0-0.5); % Lymphocytes 12.1 % (20.5-51.1); % Monocytes 12.8 % (1.7-9.3); % Neutrophils 65.9 % (42.2-75.2); Absolute Basophils 0.1 10^3/uL (0-0.2); Absolute Eosinophils 0.6 10^3/uL (0-0.7); Absolute Monocytes 1.1 10^3/uL (0.1-0.6); Absolute Neutrophils 5.4 10^3/uL (1.4-6.5); Hematocrit 33.2 % (39.0-52.0); Hemoglobin 11.3 g/dL (13.0-18.0); Mean Corpuscular Hgb 29.6 pg (27.0-31.0); Mean Corpuscular Volume 86.9 fL (80.0-94.0); Mean Platelet Volume 9.4 fL (7.4-10.4); Nucleated Red Blood Cells % 0 % (-); Platelet Count 264 10^3/uL (130-400); Red Blood Cell Count 3.82 10^6/uL (4.70-6.10); Red Cell Dist. Width 15.6 % (11.5-14.5); White Blood Cell Count 8.2 10^3/uL (4.8-10.8)
[2024-09-15 04:52] LABS: Blood Urea Nitrogen 20 mg/dl (9-20); Calcium 9.1 mg/dl (8.4-10.2); Carbon Dioxide 39 mmol/L (22-30); Chloride 84 mmol/L (98-107); Estimated Creatinine Clearance 94 ml/min; Glucose 144 mg/dl (70-99); Potassium 3.9 mmol/L (3.5-5.1); Sodium 130 mmol/L (135-145); eGFR > 60.00
[2024-09-15 04:53] LABS: INR 2.24; PT 24.7 Sec (11.4-14.6)
[2024-09-15 04:56] LABS: APTT 135.5 Sec (23.4-35.0)
[2024-09-15 05:24] LABS: Cortisol, Random 11.1 ug/dl; TSH Reflex To Free T4 3.52 uIU/ml (0.47-4.68)
--- NOTE | 2024-09-15 07:21 | W.PN.HOSP.TC ---
Addendum entered and electronically signed by Jennie Mcnair MD 09/15/24 17:57:
I saw and evaluated the patient independently. I reviewed the resident�s note and agree with findings and plan as documented by Dr. Pepe.
GENERAL: well developed, well nourished, male in no apparent distress
HEENT: NC/AT--6L O[address] NC [address]
HEART: regular rate and rhythm, +S1, +S2
LUNGS : clear to auscultation bilaterally
ABDOM: soft, nontender, nondistended, + bowel sounds
EXT: no cyanosis, clubbing, or edema
NEUROLOGIC: grossly intact
NO changes--continuing diuresis
Acute on chronic hypoxemic respiratory failure likely secondary to acute on chronic systolic CHF exacerbation with acute on chronic COPD exacerbation and right sided pleural effusion--weights down from 106 kg to 89 kg (no documented weight
today)--s/p diuresis--apprec cards/pulm--s/p chest tube and tPA in chest tube for loculated pleural effusion (removed 09/10)--still requiring nightly BiPAP--may need at home--ECHO with severely dilated right atrium and EF 40%--on IV lasix and
metolazone--cultures from pleural fluid without growth--finished ceftriaxone, doxy
Episode of VT with spontaneous conversion 09/08 --s/p ICD 09/13--had episode of V.tach night of 09/13-09/14 likely due to hypomagnesemia--apprec cards--on oral amiodarone--s/p cardiac cath 09/08: No obstructive coronary artery disease. Mid LAD
myocardial bridge is present.
Hyponatremia--worsening since admission (despite diuresis, was normal)--workup started (urine Osmolality, Na+, serum osmolality)--apprec renal-- w/u consistent with cardiorenal/volume overload--cont diuresis
Paroxysmal atrial fibrillation on chronic Coumadin therapy--cont metoprolol and verapamil, both with holding parameters--Plan to resume Coumadin after ICD placement, continue Heparin.
Severe MR s/p MV repair via mini thoracotomy 10/2013 at [facility] with mechanical valve--daily INR while on Coumadin, Goal INR 2.5-3.5--cont asa, statin, metoprolol
Anxiety--Continue sertraline
Obstructive sleep apnea on CPAP--might need BiPAP at d/c instead of CPAP
DVT prophylaxis- Heparin
CODE STATUS-- full code
Original Note:
Today's Communication/Plan
-
repeat CXR
Assessment / Plan
Assessment / Plan
A/P:
# Acute on chronic hypoxemic respiratory failure possibly secondary to below.
# Acute on chronic HFrEF s/p Medtronic ICD placement 09/13/24
# Acute COPD exacerbation
# Right sided pleural effusion s/p chest tube placement 09/06, chest tube removal 09/10
-Patient Requiring BiPaP at night time.
-On 4L NC (baseline at 4L NC).
-repeat ECHO with severely dilated right atrium and dilated right ventricle EF 40%,
-Continue diuresis with IV Lasix, metolazone 2.5 mg daily on hold.
-thora labs reviewed, exudative fluid. R sided chest tube was placed due to loculated effusion, but after drainage significantly slowed down, s/p tPA chest tube instillation procedure. chest tube was removed 09/10.
-Pleural fluid culture so far no growth. Cytology Negative for malignant cells. Acid fast Bacilli smear pending.
-Completed antibiotics course.
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
-Repeat chest Xray today to reassess Pleural Effusion.
#Episode of VT with spontaneous conversion 09/08
-Had another episode of V. tach night of 09/13 - 09/14 possibly due to hypomagnesemia
-Continue PO amiodarone
-s/p cardiac cath 09/08: No obstructive coronary artery disease. Mid LAD myocardial bridge is present.
#Hyponatremia
-Improving, NA today 130
-Urine osmo 280, Urine Na 18 prerenal/cardiorenal etiology
-Nephrology input appreciated.
-Continue diuresis
# Paroxysmal atrial fibrillation on chronic Coumadin therapy
-cont metoprolol and verapamil, both with holding parameters
-Continue heparin bridge to warfarin anticoagulation.
-Monitor PT/INR
# Severe MR s/p MV repair via mini thoracotomy 10/2013 at [facility] with mechanical valve
-daily INR while on Coumadin(on hold), Goal INR 2.5-3.5.
-cont asa, statin, metoprolol
# Anxiety
-Continue sertraline
DVT prophylaxis- Heparin
CODE STATUS-- full code
Anticipated Discharge: > 48 hours
Subjective/Interval History
-
Date of Service: September 15, 2024
Objective Data
-
Labs:
Laboratory Results
09/15/24 09/15/24
04:03 12:15
WBC 8.2
Hgb 11.3 L
Hct 33.2 L
Plt Count 264
PT 24.7 H
INR 2.24
APTT 135.5 H Pending
Sodium 130 L
Potassium 3.9
Chloride 84 L
Carbon Dioxide 39 H
BUN 20
Creatinine 0.8
Glucose 144 H
Calcium 9.1
Vital Signs:
Vital Signs
Temp Pulse Resp BP Pulse Ox
97.9 F 67 16 101/66 99
09/15/24 04:15 09/15/24 06:00 09/15/24 04:15 09/15/24 04:18 09/15/24 04:15
I&O
09/14/24 09/15/24 09/16/24
06:59 06:59 06:59
Intake Total 293.7 / 293.7 126 / 126
Output Total 1650 / 1650 1900 / 1900
Balance -1356.3 / -1356.3 -1774 / -1774
Review of Systems
-
All other systems: Reviewed and negative (Except as documented)
Physical Exam
-
General: No Apparent Distress
HEENT: Normocephalic and Atraumatic
Respiratory: Clear to Auscultation
Cardiac: S1/S2
GI: Soft, Nontender and Nondistended
Musculoskeletal: No Edema
Neuro: AO x 3
[2024-09-15] MEDS: ATROVENT NEBULES 0.5 MG INH (07:35)
[2024-09-15] MEDS: XOPENEX 1.25 MG INHALANT SOLUTION INH (07:35)
--- NOTE | 2024-09-15 08:37 | W.PN.CARDCBS ---
Addendum entered and electronically signed by Chani Lynne MD 09/15/24 10:11:
I saw and examined the patient.
The Automotive Glass Installer's note was reviewed and I agree with the note.
Comment: Patient is still quite volume overloaded which we discussed at great length. He tells me he is on oxygen at home 4 L so he is at baseline. Exam with volume overload with some minimal lower extremity edema, hepatomegaly, JVD, decreased
breath sounds at the bases of the lungs. He does want to go home and is willing to stay at least 1 more day but may need additional treatment to decrease readmission and for quality of life. Multiple medical problems including heart failure,
arrhythmia, ICD in place, mechanical valve on Coumadin. Plan at this time.
-Continue diuresis. Will give an extra dose of 40 mg of IV Lasix increased standing IV Lasix dose currently to 60 IV twice daily and perhaps if euvolemic switch to oral tomorrow.
-Continue to monitor blood pressure and electrolytes
-Recheck chest x-ray attention right side to assess pleural effusion
-Continue amiodarone 200 mg twice daily for 30 days and then decrease to daily dosing. Follow INRs closely during this time. Goal INR likely 3-3.5. Will contact anticoagulation clinic.
-Discussed with patient visiting nursing and patient is agreeable. Diuretic protocol will be placed. Discussed sodium and fluid restriction. Heart failure guideline directed therapy as tolerates.
Original Note:
Today's Communication / Plan
-
continue IV diuresis today, likely transition to po in AM
continue IV heparin to coumadin - giving 5mg coumadin NOW
continue amiodarone
wean supp O2
GDMT limited by hypotension
Impression / Plan
-
Primary Stage Setting Painter Apprentice: Dr. Salazar
Impression:
Presentation with SOB, LE edema
Acute hypoxic respiratory failure, requiring BIPAP in ER
Acute on chronic HFrEF
R pleural effusion s/p right CT placement, removed 09/10/24
s/p Ventricular Tachycardia episode w/ unresponsiveness 09/08/2024
s/p Medtronic ICD placement 09/13/24
PAF
History of AVNRT
Severe MR
s/p MV repair via mini thoracotomy 10/2013 at [facility]
Previously dehisced mitral valve ring status post St Simone mechanical mitral valve replacement at [facility] in 2013 with redo sternotomy
Paravalvular plug placed at [facility] 07/2016 due to symptomatic worsening paravalvular leak
Chronic coumadin therapy, managed by [facility]
COPD, on 4L NC home O2
HLD
JENNIFER on CPAP
PVCs
Anxiety
ECHO 04/15/23: EF 45 to 50%, mild concentric LVH, stage II diastolic dysfunction, status post mechanical mitral valve prosthesis with peak/mean gradients 19/9 mmHg, no MR, mild to moderate AR, mild TR, PAP 49 mmHg, dilated aorta measuring 4.1 cm.
Echo 09/03/24: LVEF 40%, moderate LVH, dilated RV with reduced RV function, mechanical mitral valve with mean gradient of 5 and no MR. PA pressure 60-65. Ascending aorta 4.3 cm
Echo 09/08/2024: Fair image quality. Left ventricle is dilated. Moderately reduced left ventricular systolic function. Global hypokinesis. Left ventricular ejection fraction is 35-40%. Enlarged right ventricular size. Compared to prior echo from
Sep 03 2024, which was reviewed, findings are similar.
Left heart cath Sep 08 2024:
HEMODYNAMICS : (mmHg)
AO (s/d) : 91/58
LV (s/d) : 94/9
LVEDP : 13
CORONARY FINDINGS
DOMINANCE: Right
LEFT MAIN: The left main artery is a large-caliber vessel which gives rise to the left anterior descending artery and the left circumflex artery. There is minimal luminal irregularities.
LEFT ANTERIOR DESCENDING: The left anterior descending artery is a medium to large caliber vessel which gives off a high rising diagonal as it courses through the anterior interventricular groove and wraps around the apex. There is a mid LAD
myocardial bridge noted but otherwise no obstructive coronary artery disease.
CIRCUMFLEX: The left circumflex artery is a medium caliber vessel which gives rise to 1 major obtuse marginal branch. There is minimal luminal irregularities.
RIGHT CORONARY ARTERY: The right coronary artery is a large-caliber, dominant vessel which gives rise to the right posterior descending artery and the right posterolateral system. There is minimal luminal irregularities.
CONCLUSIONS
1. No obstructive coronary artery disease.
2. Mid LAD myocardial bridge is present.
3. Near normal LVEDP at 13 mmHg.
Plan:
-Presented from [facility] office w/ worsening SOB and hypoxia, requiring BiPAP in ER. Admitted with acute heart failure.
-Diuresed with IV lasix and metolazone. Weight down over 30 lbs this admit, however by [facility] at time of ICD placement 09/13 wedge was still 35. continue diuresis with IV lasix 40mg BID. continues with good urine output, negative I&O overnight. dry
weight unknown. Cr remains stable. will plan to transition to po lasix in AM
-follow hypoNa with diuresis
-chronically on 4L NC, continue to wean supp O2 as able.
-EF 35-40% by echo this admission. continue toprol. he cannot afford SGLT2 inhibitors. hypotension currently limiting addition of madhu/arb/arni/aldactone.
-C 09/08 without obstructive CAD
-VT episode 09/08 s/p Medtronic ICD 09/13/24. pressure dressing removed this AM. L chest site stable
-Keep K>4, Mag>2
-continue IV heparin to coumadin. INR 2.24 on 09/15. will give 5mg coumadin again now. normally on 3.5mg QPM as OP, however now also on amiodarone. goal INR 2.5-3.5, managed by [facility] coumadin clinic, will notify them of changes
-currently asensed vpaced rhythm on review of tele overnight. with 1 very brief episode of likely afib with aberrancy and 1 5-beat run of NSVT. continue po amiodarone 200mg BID.
-verapamil stopped this admission due to hypotension and reduced EF.
-he previously declined VN however feel he would benefit from this.
-will arrange OP cardiac follow up
Progress Note - Stage Setting Painter Apprentice
Subjective
Date of Service: September 15, 2024
reports good diuresis. denies SOB.
Objective
Labs:
09/15/24 04:03
09/15/24 04:03
Labs
Hgb 11.3 g/dL (13.0-18.0) L 09/15/24 04:03
Hct 33.2 % (39.0-52.0) L 09/15/24 04:03
Plt Count 264 10^3/uL (130-400) 09/15/24 04:03
PT 24.7 Sec (11.4-14.6) H 09/15/24 04:03
INR 2.24 09/15/24 04:03
APTT 135.5 Sec (23.4-35.0) H 09/15/24 04:03
Sodium 130 mmol/L (135-145) L 09/15/24 04:03
Potassium 3.9 mmol/L (3.5-5.1) 09/15/24 04:03
BUN 20 mg/dl (9-20) 09/15/24 04:03
Creatinine 0.8 mg/dL (0.7-1.3) 09/15/24 04:03
Glucose 144 mg/dl (70-99) H 09/15/24 04:03
Vital Signs and I&O:
Vital Signs
Temp Pulse Resp BP Pulse Ox
97.9 F 72 16 101/66 97
09/15/24 04:15 09/15/24 07:40 09/15/24 07:40 09/15/24 04:18 09/15/24 07:40
Vital Signs
Temp Pulse Resp BP Pulse Ox
97.9 F 72 16 101/66 97
09/15/24 04:15 09/15/24 07:40 09/15/24 07:40 09/15/24 04:18 09/15/24 07:40
Intake & Output
09/13/24 09/14/24 09/15/24 09/16/24
07:59 07:59 07:59 07:59
Intake Total 250 / 250 293.7 / 293.7 126 / 126
Output Total 1550 / 1550 1650 / 1650 1900 / 1900
Balance -1300 / -1300 -1356.3 / -1356.3 -1774 / -1774
Physical Exam
Physical Exam
GEN: No distress, awake, alert, oriented x3. sitting in chair. on supp O2
HEENT: supple, anicteric, mmm, eomi
LUNGS: CTA B/L, no wheezes
CV: Reg, S1/S2, no murmur
ABD: soft, BS+, NT/ND
EXT: No cyanosis, clubbing. trace edema of B/L LE
NEURO: Gross non-focal
SKIN: Warm, pink, dry. No rash. L chest site with dressing c/d/i.
[2024-09-15] MEDS: AFRIN NASAL SPRAY 30 SPRAYS NASAL ×2 (08:58→20:26)
[2024-09-15] MEDS: PROTONIX 40 MG PO (08:59)
[2024-09-15] MEDS: TOPROL XL 50 MG PO ×2 (08:59→20:26)
[2024-09-15] MEDS: ASPIR LOW (ENTERIC COATED) 81 MG PO (08:59)
[2024-09-15] MEDS: ZOLOFT 100 MG PO (08:59)
[2024-09-15] MEDS: PACERONE 200 MG PO ×2 (08:59→20:26)
[2024-09-15] MEDS: LASIX 40 MG IV ×2 (08:59→11:51)
--- NOTE | 2024-09-15 11:31 | W.PN.NEPH.PH ---
Today's Communication / Plan
-
Maintain Lasix and fluid restrict
We will sign off
Assessment/Plan
-
IMP:
Acute on chronic hypoxemic respiratory failure
Acute on chronic systolic CHF exacerbation
Acute on chronic COPD exacerbation
Right sided pleural effusion-s/p chest tube and tPA in chest tube for loculated pleural effusion (removed 09/10)
Episode of VT with spontaneous conversion 09/08 s/p ICD 09/13
Hyponatremia
Paroxysmal atrial fibrillation on chronic Coumadin therapy
Severe MR s/p MV repair via mini thoracotomy 10/2013 at [facility] with mechanical valve
Anxiety
Obstructive sleep apnea on CPAP
Plan:
A/w SOB, acute resp failure, CHF, COPD
Evolving hyponatremia-sodium normal on admit
suspected hypervolemic given high PCWP of 35 on 09/13
U osmo 280, U na 18-consists with prerenal/cardiorenal
sodium is improving, cont lasix per cards now up to 130
Bp soft with out meds , consider midodrine support
maintain FR 48 ounces/day
monitor worsening met alkalosis on diuresis, prn diamox
we will sign off
-
-
Date of Service: September 15, 2024
CC / HPI / ROS
-
Chief Complaint:
Hyponatremia
History of Present Illness:
Sodium up to 130
Hemodynamically labile
Review of Systems:
Nonoliguric
No fevers
Labs
-
Labs:
WBC 8.2 10^3/uL (4.8-10.8) 09/15/24 04:03
RBC 3.82 10^6/uL (4.70-6.10) L 09/15/24 04:03
Hgb 11.3 g/dL (13.0-18.0) L 09/15/24 04:03
Hct 33.2 % (39.0-52.0) L 09/15/24 04:03
Plt Count 264 10^3/uL (130-400) 09/15/24 04:03
Sodium 130 mmol/L (135-145) L 09/15/24 04:03
Potassium 3.9 mmol/L (3.5-5.1) 09/15/24 04:03
Chloride 84 mmol/L (98-107) L 09/15/24 04:03
Carbon Dioxide 39 mmol/L (22-30) H 09/15/24 04:03
BUN 20 mg/dl (9-20) 09/15/24 04:03
Creatinine 0.8 mg/dL (0.7-1.3) 09/15/24 04:03
eGFR > 60.00 09/15/24 04:03
Glucose 144 mg/dl (70-99) H 09/15/24 04:03
Calcium 9.1 mg/dl (8.4-10.2) 09/15/24 04:03
Nbl-N-Emsrddvuvns Pept 1490 pg/ml 09/05/24 04:54
Albumin 3.8 g/dl (3.5-5.0) 09/05/24 04:54
Physical Exam
-
Vital Signs:
Vital Signs
Temp Pulse Resp BP Pulse Ox
98.1 F 75 16 101/64 99
09/15/24 08:39 09/15/24 10:00 09/15/24 08:39 09/15/24 08:59 09/15/24 10:47
Cardiovascular:: Regular rate and rhythm
Respiratory:: Bilateral: Coarse
Lung Excursion:: Normal
Abdomen:: Nontender and Soft
Bowel Sounds:: Normal
Extremity Edema:: None: Bilateral:
[place] Catheter: No
[2024-09-15] MEDS: KCL 20 MEQ PO (11:51)
[2024-09-15] MEDS: COUMADIN 5 MG PO (11:51)
[2024-09-15 12:44] LABS: APTT 72.7 Sec (23.4-35.0)
--- NOTE | 2024-09-15 13:21 | CM ---
CM following for DC planning needs.
Met w/ patient at bedside. Pt. feels well. He is hopeful for DC to home tomorrow.
We reviewed DC plan for home w/ VN. He is agreeable to this. He plans to stay at his own home @ time of DC located in [address] [place] [address]. I have updated [facility] VN; will confirm his DC once known.
Plan is for home w/ [facility] VN.
--- NOTE | 2024-09-15 13:22 | CM ---
Priced Jardiance thru patient's insurance, [employer] [phone]; ID [id number]
Pt. has an annual deductible to meet of $3006. Once met, patient's co pay for Jardiance is anticipated to be $95.35/mo.
--- NOTE | 2024-09-15 14:06 | PTCARENOTE ---
Pt AOx3, no complaints of pain or discomfort. assist x1 OOB. Heparin gtt infusing per protocol. PICC flushed with good blood return. VSS, paced on tele monitor. Call [facility]den within reach.
[2024-09-15] MEDS: HEPARIN 25000 UNITS/250 ML IV (17:24)
[2024-09-15] MEDS: LASIX 60 MG IV (17:26)
[2024-09-15] MEDS: CRESTOR 5 MG PO (20:30)
[2024-09-15 20:49] LABS: APTT 66.3 Sec (23.4-35.0)
--- NOTE | 2024-09-15 23:00 | PTCARENOTE ---
Pt received at change of shift. Vpaced on tele with occasional PVCs, HR 70s. Heparin gtt currently infusing at 12ml/hr through double lumen PICC in RUE. L chest wall dressing from pacemaker placement c/d/i with no complications noted. Pt
ambulating with standby assist. Plan of care discussed and pt verbalizes understanding. Can make needs known. Call bowden within reach.
[2024-09-16 03:56] VITALS: BP 104/68
[2024-09-16 05:00] LABS: Hematocrit 32.6 % (39.0-52.0); Mean Corp Hgb Conc. 33.7 g/dL (33.0-37.0); Mean Corpuscular Hgb 28.6 pg (27.0-31.0); Mean Corpuscular Volume 84.7 fL (80.0-94.0); Mean Platelet Volume 9.6 fL (7.4-10.4); Platelet Count 294 10^3/uL (130-400); Red Blood Cell Count 3.85 10^6/uL (4.70-6.10); Red Cell Dist. Width 15.9 % (11.5-14.5); White Blood Cell Count 7.9 10^3/uL (4.8-10.8)
[2024-09-16 05:10] LABS: INR 2.55; PT 27.8 Sec (11.4-14.6)
[2024-09-16 05:24] LABS: Blood Urea Nitrogen 18 mg/dl (9-20); Carbon Dioxide 39 mmol/L (22-30); Chloride 85 mmol/L (98-107); Estimated Creatinine Clearance 94 ml/min; Glucose 114 mg/dl (70-99); Potassium 3.8 mmol/L (3.5-5.1); Sodium 132 mmol/L (135-145); eGFR > 60.00
[2024-09-16 06:00] VITALS: BMI 27.8
[2024-09-16 06:03] LABS: APTT 188.7 Sec (23.4-35.0)
--- NOTE | 2024-09-16 06:26 | PTCARENOTE ---
PTT came back critical at 188.7. Per protocol, heparin gtt to be held for 1 hour and then rate decreased by 2ml/hr. Heparin paused at 0613. Due to be resumed at 10ml/hr at 0713.
[2024-09-16 07:29] VITALS: BP 96/53
--- NOTE | 2024-09-16 07:30 | W.PN.HOSP.TC ---
Addendum entered and electronically signed by Jennie Mcnair MD 09/16/24 13:14:
I saw and evaluated the patient independently. I reviewed the resident�s note and agree with findings and plan as documented by Dr. Pepe.
GENERAL: well developed, well nourished, male in no apparent distress
HEENT: NC/AT--6L O2 NC in place
HEART: regular rate and rhythm, +S1, +S2
LUNGS : clear to auscultation bilaterally
ABDOM: soft, nontender, nondistended, + bowel sounds
EXT: no cyanosis, clubbing, or edema
NEUROLOGIC: grossly intact
OK for d/c
Acute on chronic hypoxemic respiratory failure likely secondary to acute on chronic systolic CHF exacerbation with acute on chronic COPD exacerbation and right sided pleural effusion--weights down from 106 kg to 87.9 kg--s/p diuresis--apprec
cards/pulm--s/p chest tube and tPA in chest tube for loculated pleural effusion (removed 09/10)--still requiring nightly BiPAP--may need at home--ECHO with severely dilated right atrium and EF 40%--on IV lasix and metolazone--cultures from pleural
fluid without growth--finished ceftriaxone, doxy
Episode of VT with spontaneous conversion 09/08 --s/p ICD 09/13--had episode of V.tach night of 09/13-09/14 likely due to hypomagnesemia--apprec cards--on oral amiodarone--s/p cardiac cath 09/08: No obstructive coronary artery disease. Mid LAD
myocardial bridge is present.
Hyponatremia--worsening since admission (despite diuresis, was normal)--workup started (urine Osmolality, Na+, serum osmolality)--apprec renal-- w/u consistent with cardiorenal/volume overload--cont diuresis
Paroxysmal atrial fibrillation on chronic Coumadin therapy--cont metoprolol and verapamil, both with holding parameters--Plan to resume Coumadin after ICD placement, continue Heparin.
Severe MR s/p MV repair via mini thoracotomy 10/2013 at [facility] with mechanical valve--daily INR while on Coumadin, Goal INR 2.5-3.5--cont asa, statin, metoprolol
Anxiety--Continue sertraline
Obstructive sleep apnea on CPAP--might need BiPAP at d/c instead of CPAP
DVT prophylaxis- Heparin
CODE STATUS-- full code
Original Note:
Today's Communication/Plan
-
d/c today
Assessment / Plan
Assessment / Plan
A/P:
# Acute on chronic hypoxemic respiratory failure possibly secondary to below.
# Acute on chronic HFrEF s/p Medtronic ICD placement 09/13/24
# Acute COPD exacerbation
# Right sided pleural effusion s/p chest tube placement 09/06, chest tube removal 09/10
-Patient Requiring BiPaP at night time.
-On 4L NC (baseline at 4L NC).
-repeat ECHO with severely dilated right atrium and dilated right ventricle EF 40%,
-Transitioned to PO Lasix 80mg BID
-thora labs reviewed, exudative fluid. R sided chest tube was placed due to loculated effusion, but after drainage significantly slowed down, s/p tPA chest tube instillation procedure. chest tube was removed 09/10.
-Pleural fluid culture so far no growth. Cytology Negative for malignant cells. Acid fast Bacilli smear pending.
-Completed antibiotics course.
-Continue nocturnal BiPAP and resume CPAP upon discharge; he should discuss transitioning to BiPAP with his private chemist
-Repeat chest Xray 09/15 Stable elevation of the right hemidiaphragm with stable associated pleural parenchymal airspace disease at the right lung base consistent with atelectasis and effusion. Mild/moderate cardiomegaly with stable postoperative
changes
#Episode of VT with spontaneous conversion 09/08
-Had another episode of V. tach night of 09/13 - 09/14 possibly due to hypomagnesemia
-Continue PO amiodarone
-s/p cardiac cath 09/08: No obstructive coronary artery disease. Mid LAD myocardial bridge is present.
#Hyponatremia
-Resolving with diuresis
# Paroxysmal atrial fibrillation on chronic Coumadin therapy
-cont metoprolol. Stop verapamil.
-INR today 2.55. d/c Heparin. Anticoagulation with Warfarin
-Monitor PT/INR
# Severe MR s/p MV repair via mini thoracotomy 10/2013 at [facility] with mechanical valve
-daily INR while on Coumadin
-cont asa, statin, metoprolol
# Anxiety
-Continue sertraline
DVT prophylaxis- Warfarin
CODE STATUS-- full code
Anticipated Discharge: Today
Objective Data
-
Labs:
Laboratory Results
09/15/24 09/16/24 09/16/24
20:25 04:20 12:15
WBC 7.9
Hgb 11.0 L
Hct 32.6 L
Plt Count 294
PT 27.8 H
INR 2.55
APTT 66.3 H 188.7 H* Cancelled
Sodium 132 L
Potassium 3.8
Chloride 85 L
Carbon Dioxide 39 H
BUN 18
Creatinine 0.8
Glucose 114 H
Calcium 9.0
09/16/24
13:15
WBC
Hgb
Hct
Plt Count
PT
INR
APTT Pending
Sodium
Potassium
Chloride
Carbon Dioxide
BUN
Creatinine
Glucose
Calcium
Vital Signs:
Vital Signs
Temp Pulse Resp BP Pulse Ox
98.1 F 69 18 104/68 99
09/16/24 03:51 09/16/24 03:56 09/16/24 03:51 09/16/24 03:56 09/16/24 03:51
I&O
09/15/24 09/16/24 09/17/24
06:59 06:59 06:59
Intake Total 126 / 126
Output Total 1899 / 1899 2550 / 2549
Balance -1773 / -1773 -2549 / -2549
Review of Systems
-
All other systems: Reviewed and negative (except as documented)
Physical Exam
-
General: No Apparent Distress
HEENT: Oxygen
Respiratory: Clear to Auscultation; Negative Wheezes or Rales
Cardiac: S1/S2
GI: Soft, Nontender and Nondistended
Musculoskeletal: No Edema
Neuro: AO x 3
[2024-09-16] MEDS: PROTONIX 40 MG PO (07:57)
[2024-09-16] MEDS: AFRIN NASAL SPRAY 1 SPRAYS NASAL (07:57)
[2024-09-16] MEDS: ASPIR LOW (ENTERIC COATED) 81 MG PO (07:58)
[2024-09-16] MEDS: PACERONE 200 MG PO (07:58)
[2024-09-16] MEDS: ZOLOFT 100 MG PO (07:58)
[2024-09-16 08:08] VITALS: BP 114/66
[2024-09-16] MEDS: TOPROL XL 50 MG PO (08:08)
[2024-09-16] MEDS: LASIX 60 MG IV (08:36)
--- NOTE | 2024-09-16 10:35 | W.PN.CARDCBS ---
Today's Communication / Plan
-
po lasix 80mg BID
BMP in 1 week
stop IV heparin
coumadin 3mg QPM upon DC
for INR check Fri/ next week as arranged by coumadin clinic
amiodarone 200mg BID for 30 days then decrease to 200mg daily
continue toprol 50mg BID
VN
OP cardiac follow up arranged
Impression / Plan
-
Primary Ross Carrier Driver: Dr. Salazar
Impression:
Presentation with SOB, LE edema
Acute hypoxic respiratory failure, requiring BIPAP in ER
Acute on chronic HFrEF
R pleural effusion s/p right CT placement, removed 09/10/24
s/p Ventricular Tachycardia episode w/ unresponsiveness 09/08/2024
s/p Medtronic ICD placement 09/13/24
PAF
History of AVNRT
Severe MR
s/p MV repair via mini thoracotomy 10/2013 at [facility]
Previously dehisced mitral valve ring status post St Simone mechanical mitral valve replacement at [facility] in 2013 with redo sternotomy
Paravalvular plug placed at [facility] 07/2016 due to symptomatic worsening paravalvular leak
Chronic coumadin therapy, managed by [facility]
COPD, on 4L NC home O2
HLD
JENNIFER on CPAP
PVCs
Anxiety
ECHO 04/15/23: EF 45 to 50%, mild concentric LVH, stage II diastolic dysfunction, status post mechanical mitral valve prosthesis with peak/mean gradients 19/9 mmHg, no MR, mild to moderate AR, mild TR, PAP 49 mmHg, dilated aorta measuring 4.1 cm.
Echo 09/03/24: LVEF 40%, moderate LVH, dilated RV with reduced RV function, mechanical mitral valve with mean gradient of 5 and no MR. PA pressure 60-65. Ascending aorta 4.3 cm
Echo 09/08/2024: Fair image quality. Left ventricle is dilated. Moderately reduced left ventricular systolic function. Global hypokinesis. Left ventricular ejection fraction is 35-40%. Enlarged right ventricular size. Compared to prior echo from
Sep 03 2024, which was reviewed, findings are similar.
Left heart cath Sep 08 2024:
HEMODYNAMICS : (mmHg)
AO (s/d) : 91/58
LV (s/d) : 94/9
LVEDP : 13
CORONARY FINDINGS
DOMINANCE: Right
LEFT MAIN: The left main artery is a large-caliber vessel which gives rise to the left anterior descending artery and the left circumflex artery. There is minimal luminal irregularities.
LEFT ANTERIOR DESCENDING: The left anterior descending artery is a medium to large caliber vessel which gives off a high rising diagonal as it courses through the anterior interventricular groove and wraps around the apex. There is a mid LAD
myocardial bridge noted but otherwise no obstructive coronary artery disease.
CIRCUMFLEX: The left circumflex artery is a medium caliber vessel which gives rise to 1 major obtuse marginal branch. There is minimal luminal irregularities.
RIGHT CORONARY ARTERY: The right coronary artery is a large-caliber, dominant vessel which gives rise to the right posterior descending artery and the right posterolateral system. There is minimal luminal irregularities.
CONCLUSIONS
1. No obstructive coronary artery disease.
2. Mid LAD myocardial bridge is present.
3. Near normal LVEDP at 13 mmHg.
Plan:
-Presented from [facility] office w/ worsening SOB and hypoxia, requiring BiPAP in ER. Admitted with acute heart failure.
-Diuresed with IV lasix and metolazone. Weight down ~40 lbs this admit, however by [facility] at time of ICD placement 09/13 wedge was still 35. continues to diurese. will transition to po lasix 80mg BID for DC.
-BMP in 1 week upon DC
-chronically on 4L NC, continue to wean supp O2 as able.
-EF 35-40% by echo this admission. continue toprol. he cannot afford SGLT2 inhibitors. hypotension currently limiting addition of madhu/arb/arni/aldactone.
-LHC 09/08 without obstructive CAD
-VT episode 09/08 s/p Medtronic ICD 09/13/24. pressure dressing removed this AM. L chest site with mild edema, stable
-Keep K>4, Mag>2
-stop IV heparin as INR 09/16 is 2.55. will give 5mg coumadin again now. normally on 3.5mg QPM as OP, however now also on amiodarone so will decrease to 3mg QPM for DC. goal INR 2.5-3.5. d/w [facility] coumadin clinic. plan for weekly INRs while on BID
amio, plan for INR check Friday or Friday of next week
-mostly asensed vpaced rhythm on review of tele overnight. with several very brief runs of Atach/afib and NSVT (3-6 beats). continue po amiodarone 200mg BID for 30 days then decrease to 200mg daily.
-verapamil stopped this admission due to hypotension and reduced EF.
-agreeable to VN upon DC
-OP cardiac follow up arranged
-ok for DC to home today
-d/w hospitalist team via TT
Progress Note - Ross Carrier Driver
Subjective
Date of Service: September 16, 2024
feeling well. eager for DC
Objective
Labs:
09/16/24 04:20
09/16/24 04:20
Labs
Hgb 11.0 g/dL (13.0-18.0) L 09/16/24 04:20
Hct 32.6 % (39.0-52.0) L 09/16/24 04:20
Plt Count 294 10^3/uL (130-400) 09/16/24 04:20
PT 27.8 Sec (11.4-14.6) H 09/16/24 04:20
INR 2.55 09/16/24 04:20
APTT Cancelled 09/16/24 13:15
Sodium 132 mmol/L (135-145) L 09/16/24 04:20
Potassium 3.8 mmol/L (3.5-5.1) 09/16/24 04:20
BUN 18 mg/dl (9-20) 09/16/24 04:20
Creatinine 0.8 mg/dL (0.7-1.3) 09/16/24 04:20
Glucose 114 mg/dl (70-99) H 09/16/24 04:20
Vital Signs and I&O:
Vital Signs
Temp Pulse Resp BP Pulse Ox
98.1 F 70 20 114/66 98
09/16/24 07:25 09/16/24 08:08 09/16/24 07:25 09/16/24 08:08 09/16/24 08:02
Vital Signs
Temp Pulse Resp BP Pulse Ox
98.1 F 70 20 114/66 98
09/16/24 07:25 09/16/24 08:08 09/16/24 07:25 09/16/24 08:08 09/16/24 08:02
Intake & Output
09/14/24 09/15/24 09/16/24 09/17/24
07:59 07:59 07:59 07:59
Intake Total 293.7 / 293.7 126 / 126
Output Total 1650 / 1650 1900 / 1900 2550 / 2550 500 / 500
Balance -1356.3 / -1356.3 -1774 / -1774 -2550 / -2550 -500 / -500
Physical Exam
Physical Exam
GEN: No distress, awake, alert, oriented x3. on supp O2
HEENT: supple, anicteric, mmm, eomi
LUNGS: CTA B/L, no wheezes
CV: Reg, S1/S2, no murmur
ABD: soft, BS+, NT/ND
EXT: No cyanosis, clubbing, edema
NEURO: Gross non-focal
SKIN: Warm, pink, dry. No rash. L chest site with dressing c/d/i, mild edema.
[2024-09-16 11:15] VITALS: BP 92/54
--- NOTE | 2024-09-16 11:26 | CM ---
CM following for DC planning needs.
Met w/ patient at bedside. Pt. reports that he is feeling well and is preparing for DC today.
Reviewed plan to DC to his own home in [place] w/ VN thru [facility]. Will update [facility] on DC date.
Plan: Home w/ VN
[2024-09-16] MEDS: PREVNAR 20 0.5 ML IM (12:13)
--- NOTE | 2024-09-16 12:14 | W.DCSUMMARY ---
Addendum entered and electronically signed by Jennie Mcnair MD 09/16/24 18:05:
Read, reviewed, and agree. See same day progress note for additional details. Time spent coordinating care, DC planning, review of DC plan of care with resident, transition of care, review of records in EMR, med rec, consults, notes, d/w
consultants, nursing, family, and CM = 39 minutes
Original Note:
Discharge Summary
Discharge Data
Date of Admission: 09/03/24
Date of Discharge: 09/16/24
Total time spent discharging patient (in min): 39
-
Pending Results: No
Hospital Course
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
with exertion, and 15 to 20 pounds weight gain. On presentation to the the ER, his blood pressure 105/57, afebrile, O2 sat 96% requiring 8 L on BiPAP. Troponin 0.014, proBNP 1170, warfarin 4.69. Cardiology was consulted and was started on IV
Lasix. Evaluation with chest CT on presentation showed elevated right hemidiaphragm, and a small to moderate right pleural effusion. Echocardiogram with severely dilated right atrium and dilated right ventricle EF 40%. Thoracocentesis was done,
with right pleural effusion multiloculated and suspected to be parapneumonic. Given concerns for infectious process, a chest tube was inserted. He was started on antibiotics with Rocephin and Zithromax and fluid studies were sent including cell
count with differential, cultures and cytopathology. tpa and Dornase were instilled into the chest tube after placement, and drainage significantly slowed down. Cultures from pleural fluid without growth. Cytology Negative for malignant cells.
With lack of increased white blood cells, increased LDH and no significant signs of inflammation was unclear if chest tube will be ineffective. Chest tube was eventually removed after 4 sessions of tPA/dornase alpha. On day 5th day of his hospital
stay, he had a V. tach episode on telemetry with brief loss of consciousness. After chest compressions, patient resumed consciousness with resolution of arrhythmias. Cardiac catheterization was done immediately after, showing no obstructive
coronary artery disease and mild LAD myocardial bridge present. 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
benefit from secondary prevention ICD implantation. After discussion with patient, ICD was placed 09/13. He continued to be diuresed with IV Lasix with improvement of weight down 32 pounds since admission. His oxygen was eventually weaned back to
his baseline level of 4 L nasal cannula. Throughout the course of his hospital stay, his symptoms continue to be improved with diuresis and anticoagulation was done with heparin bridging until INR was at goal of 2.5�3.5. His rate was well
controlled with metoprolol and amiodarone. He will be discharged home today on Oral Lasix 80mg BID. Rate control with Amiodarone and Toprolol. On the day of discharge, INR was 2.55. His Coumadin therapy was started, and he will be discharged on 3mg
nightly with goal INR 2.5-3.5, and plan for weekly INR check while on amiodarone.
Discharge Plan
-
Patient Disposition: Home with Home Care
Discharge Diagnosis/Procedures: Acute on chronic hypoxemic respiratory failure
acute on chronic systolic CHF exacerbation status post ICD implant (09/13)
acute on chronic COPD exacerbation
right sided pleural effusion
Paroxysmal atrial fibrillation
Obstructive sleep apnea
Condition: Fair
Diet: 2 Gram Sodium and Restrict fluids to 48 oz
Activity: Other activity
Additional Activity: see device sheet
Driving Restrictions: No driving for 1 week
Blood Work: BMP in 1 week Correspondence to PCP, INR next week as per [facility] coumadin [facility]
Other Services: [facility]
Specialty Instructions: Weigh Daily- Call MD for wt gain/loss 3 lbs overnight/5 lbs in 1 week
Activity Restrictions/Additional Instructions:
Note to [facility] (if receiving home care through [facility]):
Initiate the Home Health Diuretic Protocol
Instructions: *[facility]CA Heart Failure Instructions
Stand Alone Forms: DC Inst - Implanted Device
Referrals:
[facility] [Outside] ([phone])
Katerina Cabello CRNP [Specified Professional Personl] - 09/23/24 10:20 am (You have a cardiology follow up appointment at the [place] office with Dr. Salazar's nurse practitioner, Katerina. Please call with questions. )
Sunday Remy DO [Family Provider] - in one week
Additional Discharge Medication Instructions: PO lasix 80mg BID
coumadin 3mg QPM
amiodarone 200mg BID for 30 days then decrease to 200mg daily
continue toprol 50mg BID
verapamil stopped due to hypotension and reduced EF
Prescriptions:
New
warfarin [Jantoven] 3 mg Tablet
3 mg PO QPM Qty: 30 0RF
amiodarone 200 mg Tablet
200 mg PO BID Qty: 30 0RF
metoprolol succinate 50 mg Tablet Extended Release 24 Hr
50 mg PO BID Qty: 30 0RF
furosemide 80 mg Tablet
80 mg PO BID@0800,1600 Qty: 60 0RF
Continued
aspirin 81 MG tablet,delayed release (DR/EC)
81 mg PO DAILY
sertraline 50 MG tablet
100 mg PO DAILY
Patient Comments:
09/03/24: Patient has personally increased the dosage from 50mg to 100mg
acetaminophen [Tylenol Extra Strength] 500 mg Tablet
1,000 mg PO Q6HPRN PRN (Reason: mild pain)
omeprazole 20 mg Capsule,Delayed Release(Dr/Ec)
20 mg PO DAILY
budesonide 0.5 mg/2 mL Suspension For Nebulization
0.5 mg INHALATION R BID
albuterol sulfate 90 mcg/actuation Hfa Aerosol Inhaler
2 puff INHALATION R Q4HPRN PRN (Reason: sob)
arformoterol 15 mcg/2 mL Solution For Nebulization
2 ml INHALATION R BID
valacyclovir 1,000 MG tablet
1,000 mg PO HS
rosuvastatin 5 MG tablet
5 mg PO HS
Discontinued
metoprolol succinate 100 MG tablet extended release 24 hr
150 mg PO BID
verapamil 120 MG tablet extended release
240 mg PO HS
verapamil 120 MG tablet extended release
120 mg PO DAILY
furosemide 80 mg Tablet
80 mg PO BID
Patient Comments:
09/03/24: Previously had taken 80mg BID, told to take 120mg yesterday, unsure of dosage moving forward.
warfarin 1 mg Tablet
3.5 mg PO QPM
Discharge Orders:
Discharge Patient (As Directed); Ordered 09/16/24
Ordered By: Justa Pepe
Care Plan Goals
Care Plan Goals:
Problem: Readiness for enhanced knowledge related to diagnosis and treatment plan
Goal: Understand your diagnosis and treatment plan needs, including medications if applicable.
Instructions: Know your diagnosis, underlying causes and treatment plan options, including medications if applicable. Consult with your health care team to learn about your diagnosis and treatment plan, including medications if applicable.
Discharge Date and Time
Discharge Date/Time: 09/16/24 14:42
Print Language: GREENLANDIC
--- NOTE | 2024-09-16 14:38 | PTCARENOTE ---
Pt seen by Bharti and Jarrod Mcdowell. PICC line, peripheral IV device and telemetry removed. Discharge instructions reviewed with pt regarding activity adn riving guidelines, wound care, CHF guidelines, medications anf their possible side
effects, VN , reporting cares and concerns and follow up appt's. Very good understanding taught back to this RN. Pt escorted out on his home oxygen and discharged to home. DC materials faxed to [facility].
--- NOTE | 2024-09-17 09:39 | W.HF.CON ---
Heart Failure
- LV Function
Left ventricular function study result: LV Ejection fraction 36-40%
Ejection Fraction Percentage: 35-40
- ARNI
Patient already on ARNI: No
Heart Failure ARNI Contraindication: Hypotension
- ACEI/ARB
Patient already on ACEI/ARB: No
Heart Failure ACEI/ARB Contraindication: Hypotension
- Beta Shayy
Patient already on Evidence Based Beta Shayy: Yes
- Mineralocorticord Receptor Antagonist
Patient already on MRA: No
Heart Failure MRA Contraindication: Hypotension
- SGLT-2 Inhibitor
Patient already on SGLT-2 Inhibitor: No
Heart Failure SGLT-2 Inhibitor Contraindication: Patient Refusal
- Afib Anticoagulation
Patient already on Anticoagulation for Afib: Yes
- NYHA CHF Classification
NYHA CHF Classification Level: Class III - Symptoms w/ min exertion, interferes w/ nml daily activity
- ACC/AHA Stage
ACC/AHA Stage: Stage C: Symptomatic Heart Failure
== END 2024-09-16 14:42 | disposition home health service (06) | DRG 275 ==
LOC: IVU 15:26
PROVIDERS: Internal Medicine; Internal Medicine Cardiovascular Disease; Internal Medicine Critical Care Medicine; Internal Medicine Interventional Cardiology; Nurse Practitioner; Nurse Practitioner Primary Care; Physician Assistant; Radiology Vascular & Interventional Radiology; Student in an Organized Health Care Education/Training Program; ADMITTING PHYSICIAN Internal Medicine; CONSULT PHYSICIAN Internal Medicine; CONSULT PHYSICIAN Internal Medicine Critical Care Medicine; EMERGENCY PHYSICIAN Emergency Medicine; FAMILY PHYSICIAN Family Medicine
PROC: 0W9930Z Drainage of Right Pleural Cavity with Drainage Device, Percutaneous Approach (ICD-10-PCS; 2024-09-06)
PROC: 5A09357 Assistance with Respiratory Ventilation, Less than 24 Consecutive Hours, Continuous Positive Airway Pressure (ICD-10-PCS; 2024-09-06)
PROC: 3E0L3GC Introduction of Other Therapeutic Substance into Pleural Cavity, Percutaneous Approach (ICD-10-PCS; 2024-09-07)
PROC: 3E0L317 Introduction of Other Thrombolytic into Pleural Cavity, Percutaneous Approach (ICD-10-PCS; 2024-09-07)
PROC: B2151ZZ Fluoroscopy of Left Heart using Low Osmolar Contrast (ICD-10-PCS; 2024-09-08)
PROC: 4A023N7 Measurement of Cardiac Sampling and Pressure, Left Heart, Percutaneous Approach (ICD-10-PCS; 2024-09-08)
PROC: B2111ZZ Fluoroscopy of Multiple Coronary Arteries using Low Osmolar Contrast (ICD-10-PCS; 2024-09-08)
PROC: 02HV33Z Insertion of Infusion Device into Superior Vena Cava, Percutaneous Approach (ICD-10-PCS; 2024-09-09)
PROC: 02H43KZ Insertion of Defibrillator Lead into Coronary Vein, Percutaneous Approach (ICD-10-PCS; 2024-09-13)
PROC: 4A023N6 Measurement of Cardiac Sampling and Pressure, Right Heart, Percutaneous Approach (ICD-10-PCS; 2024-09-13)
PROC: 02HK3KZ Insertion of Defibrillator Lead into Right Ventricle, Percutaneous Approach (ICD-10-PCS; 2024-09-13)
PROC: 5A2204Z Restoration of Cardiac Rhythm, Single (ICD-10-PCS; 2024-09-13)
PROC: 0JH609Z Insertion of Cardiac Resynchronization Defibrillator Pulse Generator into Chest Subcutaneous Tissue and Fascia, Open Approach (ICD-10-PCS; 2024-09-13)
PROC: 02H63KZ Insertion of Defibrillator Lead into Right Atrium, Percutaneous Approach (ICD-10-PCS; 2024-09-13)
PROC: 3E0234Z Introduction of Serum, Toxoid and Vaccine into Muscle, Percutaneous Approach (ICD-10-PCS; 2024-09-16)
DX: I11.0 Hypertensive heart disease with heart failure (principal); I50.23 Acute on chronic systolic (congestive) heart failure; J96.22 Acute and chronic respiratory failure with hypercapnia; J96.21 Acute and chronic respiratory failure with hypoxia; E87.3 Alkalosis; R18.8 Other ascites; E87.1 Hypo-osmolality and hyponatremia; J44.1 Chronic obstructive pulmonary disease with (acute) exacerbation; I47.29 Other ventricular tachycardia; J91.8 Pleural effusion in other conditions classified elsewhere; Q24.5 Malformation of coronary vessels; I48.92 Unspecified atrial flutter; I47.19 Other supraventricular tachycardia; I48.0 Paroxysmal atrial fibrillation; F41.9 Anxiety disorder, unspecified; G47.33 Obstructive sleep apnea (adult) (pediatric); K21.9 Gastro-esophageal reflux disease without esophagitis; J98.6 Disorders of diaphragm; I42.8 Other cardiomyopathies; I45.10 Unspecified right bundle-branch block; I27.20 Pulmonary hypertension, unspecified; E66.01 Morbid (severe) obesity due to excess calories; E78.00 Pure hypercholesterolemia, unspecified; E87.6 Hypokalemia; E83.42 Hypomagnesemia; K58.8 Other irritable bowel syndrome; Z11.52 Encounter for screening for COVID-19; Z23 Encounter for immunization; Z68.27 Body mass index [BMI] 27.0-27.9, adult; Z79.01 Long term (current) use of anticoagulants; Z79.82 Long term (current) use of aspirin; Z79.899 Other long term (current) drug therapy; Z82.49 Family history of ischemic heart disease and other diseases of the circulatory system; Z95.2 Presence of prosthetic heart valve; Z99.81 Dependence on supplemental oxygen
CPT/HCPCS: 88305; 93308; 32557; 32561; 33249; 36600; 71045; 71046; 71250; 76604; 76705; 80048; 80053; 82042; 82150; 82533; 82805; 82945; 82962; 83615; 83735; 83880; 83930; 83935; 83986; 84157; 84300; 84443; 84478; 84484; 85025; 85027; 85610; 85730; 87015; 87070; 87102; 87116; 87205; 87811; 88112; 89051; 90677; 92960; 93005; 93306; 93451; 93458; 93970; 94640; 94660; 96374; 97116; 97163; 97167; 97530; 97535; 99152; 99153; 99291; C1729; C1769; C1777; C1882; C1887; C1892; C1894; C1898; G0009; J2997; Q9967